=== PATIENT | male | born 1950 | race African-American/Black ===

== ENCOUNTER 2024-10-19 13:38 | Outpatient (CLI) | payer MEDICARE, MEDICAID, SELFPAY ==
--- NOTE | ~2024-10-19 | CT_ITS ---
CT Scan of the Chest without Contrast: Clinical Indication: Lung cancer screening, nicotine dependence Technique: Contiguous sections were acquired throughout the chest without intravenous contrast. Dose reduction technique was used on this scan by utilizing automated exposure control and iterative recon struction technique. The dose-length product (DLP) was 83.37 mGy-cm. Findings: There is no evidence of any significant mediastinal, hilar or axillary lymphadenopathy. Extensive cor onary artery calcification present. There is no evidence of pleural or pericardial effusion. Mild emphysema present. 7 mm and 5 mm right basilar pulmonary nodule present (axial images 116, 113). 4 mm right middle lobe nodule present (axial image 72). Calcified left upper lobe granuloma present. Probable left basilar scarring or nodularity, with prominent nodular component measuring 1 cm (axial image 112). Images through the upper abdomen reveal hepatic cysts. There are minimal compression deformities of T 11 and T12. Impression: Lung RADS 4A: Suspicious: 3 month follow-up CT advised. Reviewed, dictated and finalized at [facility]. Impression: Lung RADS 4A: Suspicious: 3 month follow-up CT advised.
== END 2024-10-19 13:39 | disposition home or self-care (01) ==
LOC: MICIMG 13:40
PROVIDERS: Visit Provider Family Medicine
DX: Z12.2 Encounter for screening for malignant neoplasm of respiratory organs (principal); Z87.891 Personal history of nicotine dependence; R91.8 Other nonspecific abnormal finding of lung field
CPT/HCPCS: 71271

== ENCOUNTER 2024-12-07 11:03 | Emergency (ER) | payer MEDICARE, MEDICAID, SELFPAY ==
--- OUTSIDE RECORDS SUMMARY | 2024-12-07 11:04 | XMS_ITS | Encounter Summary ---
Author Organization [facility] Healthcare Address [address] [place] [address] Care Team Providers Care Process Pumper Name Role Phone Neelam Onofre MD Primary Care Prov ider Jacky Devlin MD Unavailable [phone] Ziyad Pulido MD Unavailable Alex Guzman MD Unavailable [phone] David Wilson MD Unavailable [phone] Encounter Details Date Type Department Care Team (Late st Contact Info) Description 10/11/2023 Documentation [facility] OP Physical Therapy [address] [place] [id number] Jennifer Alcaraz, PT Social History Tobacco Use Types Packs/Day Years Used Date Smoking Tobacco: Every Day Cigarettes 1 50 Smokeless Tobacco: Never OASIS D0700: Social Isolation Answer Da te Recorded Frequency of experiencing loneliness or isolatio n Never 04/03/2023 OASIS A1250: Transportation Answer Date Recorded Lack of Transportation (Medical) No 04/03/2023 Lack of Transportation (Non-Medical) No 04/03/2023 Patient Unable or Declines to Respond No 04/03/2023 OASIS B1300: Health Literacy Answer Darryn e Recorded Frequency of needing help to read materials from doctor or pharmacy Never 04/03/2023 AUDIT-C Answer Date Recorded Q1: How often do you have a drink containing alcohol? 4 or more times a week 06/19/2021 Q2: How many drinks containi ng alcohol do you have on a typical day when you are drinking? 3 or 4 Q3: How often do you have si x or more drinks on one occasion? Daily or almost daily 06/19/2021 Personal Safety Answer Date Recorded Have you ever been in or are you currently in a harmful physical or emotional relationship or is someone making you feel afraid or unsafe? Denies 01/10/2023 Sex and Gender Information Value Date Recorded Sex Assigned at Not on file Legal Sex Male 4:49 AM [employer] Gender Identity Not on file Sexual Orientation Not on file documented as of this encounter Plan of Treatment Not on file documented as of this encounter Goals Goal Patient Goal Type Associated Problems Recent Progress Patient-Stated? Author CCM Chronic Pain Care Plan Chronic Care Management No Kristine Guadarrama RN Note: Problem: Chronic Pain Goals: 1. Minimize further functional decline 2. Maximize quality of life 3. Control pain Strategies: - Activity/exercise program recommendation - Conservative stepwise pain medicine strategy with multi-disciplinary approach - Recommend healthy lifestyle strategies and compensatory methods as needed documented as of this encounter Visit Diagnoses Not on filedocumented in this encounter Care Teams Process Pumper Relationship Specialty Start Date End Date Neelam Onofre MD PCP - General 06/02/17 Jacky Devlin MD Referring Physician Gastroenterology 09/15/19 Ziyad Pulido MD Consulting Physician Cardiovascular Disease 11/14/23 Alex Guzman MD [address] [facility] [address] [place] [address] Surgeon Orthopedic Surgery 11/14/23 David Wilson MD [address] [facility] [address] [place] [address] [place] [id number] Consulting Physician Neurology 12/12/23 documented as of this encounter
--- OUTSIDE RECORDS SUMMARY | 2024-12-07 11:05 | XMS_ITS | Data Portability ---
Author Organization [facility] AMITALiya Mercedes Address [address] [place] [address] Care Team Providers Care Spot Welder Body Assembly Name Role Phone SANDY HUSTON Primary Care Provider Assessment Encounter Date Assessment Date Assessment LastModified by Organization Details LastModified Time 08/10/2024 08/10/2024 Assessment: Extensive coronary calcification in 3 coronary arterial distributions with dyspnea concerning for an anginal variant Hypertension Mixed hyperlipidemia Nicotine dependence Peripheral arterial disease with occluded right ICA and high-grade left ICA stenosis status post TCAr by Dr. Mario Middleton in November 2023 Plan: Discussed with patient and daughter regarding concern for balanced ischemia on pharmacologic stress testing. Reviewed options of anatomic evaluation for CAD given ongoing symptoms of dyspnea concerning for CCS class 3 angina. Coronary CTA with have concern for high false positives given extensive coronary calcification noted on non coronary CT. After shared decision-making we will request cardiac catheterization and possible PCI. Rationale, benefits, risks, alternatives discussed at length. ER precautions by EMS in the interim reinforced. Peripheral arterial disease and recent TKR, continue dual antiplatelet therapy aspirin and clopidogrel. Deescalate carvedilol to 6.25 mg b.i.d. and reinitiate furosemide 20 mg daily along with potassium chloride 20 mEq daily given relative hypotension. Patient has discontinued amlodipine previously. Due to ongoing cough may need to evaluate lisinopril which we will do and the upcoming office follow-up visit. Given ongoing dyspnea nicotine dependence may also been from a pulmonary evaluation which he plans to discuss further visits PCP at the next office visit. Continue current dose of atorvastatin 40 mg daily and we will check a lipid panel prior to next cardiology office follow-up visit. We will request a close Cardiology office follow-up visit in 4 weeks' time after his coronary catheterization. CARDIAC DIAGNOSTICS: 12 lead EKG 08/10/2024: Sinus rhythm occasional PVCs, poor septal R-wave progression, inferior Q-waves noted, RVH with right axis Transthoracic echocardiogram 11/20/2023: LVEF 55-60%, normal RV function, grade 1 diastolic dysfunction Lexiscan nuclear stress test 11/22/2023: No fixed or reversible perfusion defects, no TID CT chest 08/19/2023: Cardiac portion shows severe coronary calcification, no pericardial effusion Labs: 03/30/2024: Sodium 139, potassium 4.4, chloride 106, CO2 26, BUN 12, creatinine 0.9 12/12/2023: HGB 16.8, WBC 10.7, platelet 239 [email or web address] Not available 08/10/2024 14:58:56 09/08/2024 09/08/2024 Coronary artery disease with stable angina : Occluded RCA with moderate disease in the LAD with recommendations for medical management. Due to concern for exertional dyspnea being an anginal equivalent, referred to cardiac rehab. continue high-intensity statin with atorvastatin 40 mg daily. Chronic diastolic heart failure: Low-sodium diet, ambulatory blood pressure monitoring. Continue current dose of furosemide and potassium. Initiate Jardiance 10 mg daily for medical therapy of diastolic heart failure. check follow-up labs in 2 weeks. Peripheral arterial disease : Status post TCAR by Dr. Mario Middleton. Continue dual antiplatelet therapy with aspirin and clopidogrel. Hypertension : Continue current dose of carvedilol and lisinopril. Low-sodium diet and ambulatory blood pressure monitoring reinforced. Nicotine dependence: Lengthy discussion regarding importance of complete nicotine cessation. Is down to 12 cigarettes per day and agreeable do cut back to cigarettes every few months. Declines need for pharmaceutical intervention. Plan follow-up in 2 months for ongoing management of heart failure with preserved ejection fraction. [email or web address] Not available 09/08/2024 16:41:14 11/09/2024 11/09/2024 Coronary artery disease: Occluded RCA with moderate disease in the LAD. Continue dual antiplatelet therapy with aspirin and clopidogrel after shared decision-making. Denies any bleeding diathesis. Continue cardiac rehabilitation for stable angina. Chronic diastolic heart failure: Continue current dose of Jardiance 10 mg daily. Continue furosemide 10 mg daily along with potassium replacement. Recent labs with stable renal function and potassium levels. Hypertension: Low-sodium diet, ambulatory blood pressure monitoring. Continue current dose of carvedilol and losartan. Mixed hyperlipidemia: Continue high-intensity statin with atorvastatin 40 mg daily. Check follow-up labs prior to next office visit. Peripheral arterial disease: Status post TCAR by Dr. Mario Middleton. Managed per their expertise. Nicotine dependence: Ongoing cessation reinforced is cutting down on its own. After discussion with patient's daughter, we will prescribe nicotine gum. Follow-up 4 months and p.r.n. On behalf of the Cardiovascular Services at [facility], we appreciate the opportunity to participate in the care of your patient. Please feel free to reach out to us for any questions regarding your patient's cardiac care. Ziyad Pulido MD, [facility] Cardiology [email or web address] Not available 11/09/2024 14:39:25 Plan of Treatment Reminders Order Date Submit Date Provider Last Modified By Organization Details Last Modified Time Details Appointments ANY 15 2024 03:00P M Sandy cantu MD Not available Not available Not available ANY 2024 01:30P M Ziyad Pulido MD Not available Not available Not available Lab TSH, serum or plasma 2024 025 [email or web address] [facility], [address], [place], [address], 11/09/2024 14:24:29 CBC 2024 025 [email or web address] [facility], [address], [place], [address], 11/09/2024 14:24:29 lipid panel, serum 2024 025 [email or web address] [facility] [address], [place], [address], 11/09/2024 14:24:28 CMP, serum or plasma 2024 025 [email or web address] [facility], [address], [place], [address], 11/09/2024 14:24:29 HbA1c (hemog lobin A1c), blood 2024 025 [email or web address] [facility], [address], [place], [address], 11/09/2024 14:24:29 lipid panel, serum 2024 025 [email or web address] [facility], [address] [place] [address], [address], [place], [address], 12/02/2024 10:45:05 CMP, serum or plasma 2024 025 [email or web address] [facility], [address] [place] [address], [address], [place], [address], 10/06/2024 10:54:43 HbA1c (hemog lobin A1c), blood 2024 025 [email or web address] [facility], [address] [place] [address], [address], [place], [address], 12/02/2024 10:45:05 Referral None record ed. Procedures None record ed. Surgeries cardia c bessy hollingsworth ion (SURG) 2024 025 [id number] Ramiro Miguel, [address] [facility], [place], [address], 08/12/2024 10:40:24 Imaging LDCT, chest, for lung cancer screen ing - curren t smoker 55+ pack years 1+ PPD x 55 years. 2024 025 [facility], [address] [place] [address] [address], [place], [address], 09/22/2024 10:07:51 electr ocardi ogram 2024 025 [email or web address] In-Office Order, Internal Use Only DO Not Attach Compendium DO Not Attach Compendium, Do Not Delete/merge, [id number] 08/10/2024 14:33:41 Medication Orders nicoti ne (polac rilex) 4 mg gum 2024 025 [email or web address] [id number], [address] [facility], [place], [address], 11/11/2024 09:15:01 Jardia nce 10 mg tablet 2024 025 [email or web address] [id number], [address] [facility] [facility], [place], [address], 11/09/2024 14:37:35 famoti dine 40 mg tablet 2024 025 [email or web address] [id number], [address] [facility] [facility], [place], [address], 10/12/2024 12:09:30 losart an 25 mg tablet 2024 025 HAROLDO [id number], [address] [facility], [place], [address], 09/17/2024 18:12:03 albute rol sulfat e HFA 90 mcg/ac tuatio n aeroso l inhale r 2024 025 HAROLDO [facility], [address] [facility], [place], [address], 09/17/2024 18:12:03 Jardia nce 10 mg tablet 2024 025 HAROLDO [facility] [address], [address] [facility], [place], [address], 09/08/2024 14:25:50 atorva statin 40 mg tablet 2024 025 HAROLDO [facility] [address], [address] [facility], [place], [address], 08/10/2024 14:38:07 Coreg 6.25 mg tablet 2024 025 HAROLDO [facility], [address], [place], [address], 08/10/2024 14:33:43 aspiri n 81 mg tablet ,delay ed releas e 2024 025 HARODLO [facility] [id number] [facility], [address] , [place], [address], 08/10/2024 14:38:07 Patient TargetsNo targets recorded. Patient Instructions Encounter Date Encounter Id Patient Instructions Last Modified By Organization Details Last Modified Time 08/10/2024 [id number] smoking cessatio n counseling [email or web address] Not available 08/10/2024 14:33:41 08/18/2024 [id number] Phone fu one month [email or web address] Not boubacar ilable 08/20/2024 22:03:27 09/08/2024 [id number] Quitting Tobacco : Care Instructions [email or web address] Not available 09/08/2024 14:26:45 cardiac rehabilitation* - Cardiac rehab for stable angina ATHENAFAX Not available 09/08/2024 16:40:36 09/17/2024 [id number] Quitting Tobacco : Care Instructions [email or web address] Not available 09/17/2024 18:11:48 complete PFT w/ post bronchodilator spirometry* ATHENAFAX Not available 09/18/2024 15:55:48 FU 6 weeks [email or web address] Not available 18:12:05 11/09/2024 [id number] A healthy lifestyle: care instructions [email or web address] Not available 11/09/2024 14:26:58 Quitting Tobacco : Care Instructions [email or web address] Not available 11/09/2024 14:26:58 Reason for Referral None Reported. Results Created Date Observation Date Name Description Value Unit Range Abnormal Flag Note LastModifiedBy Organization Detail LastModifiedTime 08/10/1908/10/2024 elect arjun diogr am No observ ation record ed. HAROLDO In-Office Order Internal Use Only DO Not Attach Compendium DO Not Attach Compendium, Do Not Delete/merge, [id number] 08/10/2024 15:18:27 08/10/19 nicolas vigil am No observ ation record ed. [email or web address] Not Available 2024 14:59:35 10/20/19 25 10/19/2024 LDCT, chest , for lung brendan siddiqui No observ ation record ed. HAROLDO [facility] [address], [place], [address], 10/19/2024 17:54:09 Result Notes None recorded. Problems Name Problem SNOMED Code Status Onset Date Resolution Date Notes Provider Name and Address Organization Details Recorded Time Polyp of colon 43830212 Active 2018 21 removed 01/2019 colonosco py - repeat 4-6 months; 02/[address] Lemus. Polyps 06/2022 - recommend repeat one year. Sandy cantu MD Attn: Maria Del Carmen sanchez,[address] [place], [address], [place] - [facility] 2 13:56:28 Prostati sm 34084994 Active 2020 Sandy cantu MD Attn: Maria Del Carmen sanchez,[address] [facility], [place], [address], [place] [facility] 1 15:39:09 Cerebrov ascular accident 241448244 Active 2020 Sandy cantu MD Attn: Maria Del Carmen sanchez,[address] [place], [address], [place] [facility] 1 18:02:10 Chronic obstruct adam pulmonar y disease 06458663 Active 2021 Presumed 2/2 intermediate heavy tobacco use, good sx response to spiriva Sandy cantu MD Attn: Maria Del Carmen sanchez,[address] [place], [address], [place] [facility] 2 13:59:14 Dementia 90212559 Active 2021 Stable, seeing neuro Sandy Ernestina cantu MD Attn: Maria Del Carmen sanchez,[address] [facility], [place], [address], [place] - [facility] 2 14:01:51 Peripher al arterial disease 486327105 Active 2024 Ziyad Pulido MD Attn: Maria Del Carmen sanchez,[address] [facility], [place], [place], [address] [place] [address] 2, [place] [facility] 5 14:25:38 Mixed hyperlip idemia 571783166 Active 2024 Ziyad Pulido MD Attn: Maria Del Carmen sanchez,[address] [facility], [place], [place], [address] [place] [address] 2, [place] - [facility] 5 14:40:11 Chronic diastoli c heart failure 115537192 Active 2024 Ziyad Pulido MD Attn: Maria Del Carmen sanchez,[address] [facility], [place], [place], [address] [place] [address] 2, [place] - [facility] 5 14:40:14 Coronary arterios clerosis 85290365 Active 2024 Ziyad Pulido MD Attn: Maria Del Carmen sanchez,[address] [facility], [place], [place], [address] [place] [address] 2, [place] - [facility] 5 14:40:55 [facility] hyperten merlin 47203055 Active Ziyad Pulido MD Attn: Maria Del Carmen sanchez,[address] [facility], [place], [place], [address] [place] [address] 2, [place] [facility] 5 14:40:12 Tobacco user 340173494 Active Sean Smith MD [address], [place], [address], [place] [facility] 6 16:10:29 Cervical myelopat hy 221763600 Active Sean Smith MD [address], [place], [address], [place] [facility] 6 16:10:29 Hypertri glycerid emia 511850783 Active Sean Smith MD [address] [place], [address], [facility] - [facility] 6 16:10:29 Hyperten sive disorder 43148588 Completed 03/12/2019 Sandy cantu MD Attn: Maria Del Carmen sanchez,[address] [facility], [place], [address], [facility] - [facility] 9 18:18:46 Notes:Colonoscopy 01/2019 Problem Notes None recorded. Procedures Surgical History Date Name Laterality Status Provider Name and Address Organization Details Recorded Time Cervical Spine Surgery completed Sandy Huston MD Attn: [address] [facility], [place], [address], [facility] - [facility] 06/10/2015 14:28:13 Carpal Tunnel Surgery completed Sandy Huston MD Attn: [address] [facility], [place], [address], [facility] - [facility] 06/10/2015 14:28:13 Imaging Results None recorded. Procedure Notes None recorded. Medical Equipment None Reported. Allergies No known drug allergies Medications Name Sig Start Date Stop Date Status Note LastModified by Organization Details LastModified Time losartan 50 mg tablet TAKE 1 TABLET BY MOUTH EVERY DAY 07/10 completed Not Available Not Available Not Available cyclobenz aprine 10 mg tablet TAKE 1 TABLET BY MOUTH TWICE A DAY NEEDED FOR MUSCLE SPASM 07/11 completed Not Available Not Available Not Available amoxicill in 500 mg capsule active Not Available Not Available Not Available atorvasta tin 40 mg tablet TAKE 1 TABLET BY MOUTH EVERY DAY active Not Available Not Available No t Available atorvasta tin 80 mg tablet TAKE 1 TABLET BY MOUTH EVERY DAY 08/10 completed Not Available Not Available Not Available carvedilo l 6.25 mg tablet TAKE 1 TABLET BY MOUTH TWICE A DAY active Not Available Not Available No t Available gabapenti n 600 mg tablet 05/23 completed Not Available Not Available Not Available doxycycli ne hyclate 100 mg capsule TAKE 1 CAPSULE BY MOUTH TWICE A DAY 07/11 completed Not Available Not Available Not Available atorvasta tin 20 mg tablet TAKE 1 TABLET BY MOUTH EVERY DAY 08/10 completed Not Available Not Available Not Available carvedilo l 12.5 mg tablet TAKE 1 TABLET BY MOUTH TWICE A DAY WITH FOOD 11/09 completed Not Available Not Available Not Available donepezil 5 mg tablet 07/11 completed Not Available Not Available Not Available hydrocodo ne 5 mg-acetam inophen 325 mg tablet TAKE 1 TABLET BY MOUTH EVERY 6 HOURS NEEDED 09/05 completed Not Available Not Available Not Available donepezil 10 mg tablet TAKE 1 TABLET BY MOUTH EVERY DAY AT NIGHT active Not Available Not Available No t Available lisinopri l 20 mg tablet TAKE 1 TABLET BY MOUTH EVERY DAY 08/10 completed Not Available Not Available Not Available famotidin e 40 mg tablet TAKE 1 TABLET BY MOUTH EVERY DAY active Not Available Not Available No t Available valsartan 80 mg tablet TAKE 1 TABLET BY MOUTH EVERY DAY AROUND THE CLOCK 11/18 completed Not Available Not Available Not Available amlodipin e 2.5 mg tablet TAKE 1 TABLET BY MOUTH EVERY DAY 09/08 completed Not Available Not Available Not Available clopidogr el 75 mg tablet TAKE 1 TABLET BY MOUTH EVERY DAY active Not Available Not Available No t Available amlodipin e 5 mg tablet TAKE 1 TABLET BY MOUTH EVERY DAY 09/08 completed Not Available Not Available Not Available allopurin ol 100 mg tablet take 1 tablet by mouth every day 03/12 completed Not Available Not Available Not Available aspirin 81 mg tablet,de layed release TAKE 1 TABLET BY EVERY DAY IN THE MORNING. active Not Available Not Available No t Available nortripty line 25 mg capsule TAKE 1 CAPSULE BY MOUTH EVERY DAY AT BEDTIME NEEDED active Not Available Not Available No t Available potassium chloride ER 20 mEq tablet,ex tended release(p art/cryst ) TAKE 1 TABLET BY MOUTH EVERY DAY active Not Available Not Available No t Available famotidin e 20 mg tablet 03/12 completed Not Available Not Available Not Available Nitrostat 0.4 mg sublingua l tablet One tab q 5 min slingual for chest pain 03/12 completed Not Available Not Available Not Available tamsulosi n 0.4 mg capsule TAKE 1 CAPSULE BY MOUTH EVERY DAY active Not Available Not Available No t Available nicotine (polacril ex) 4 mg gum Chew 1 piece of gum every 2 hours by oral route 2024 active Not Available Not Available Not Avai lable baclofen 10 mg tablet TAKE 0.5 TABLETS (5 MG TOTAL) BY MOUTH 2 (TWO) TIMES A DAY NEEDED FOR MUSCLE SPASMS active Not Available Not Available No t Available amlodipin e 10 mg tablet TAKE 1 TABLET BY MOUTH EVERY DAY 09/08 completed Not Available Not Available Not Available nortripty line 10 mg capsule 01/31 completed Not Available Not Available Not Available triamcino lone acetonide 0.1 % topical ointment APPLY TO AFFECTED AREA ON TRUNK TWICE A DAY NEEDED active Not Available Not Available No t Available lisinopri l 10 mg tablet TAKE 1 TABLET BY MOUTH EVERY DAY active Not Available Not Available No t Available valsartan 320 mg tablet 1 tab daily 12/27 completed Not Available Not Available Not Available losartan 25 mg tablet TAKE 1 TABLET BY MOUTH EVERY DAY active Not Available Not Available No t Available nicotine 21 mg/24 hr daily transderm al patch APPLY 1 PATCH TRANSDER SANJIV ONCE DAILY (OTC) 06/19 completed Not Available Not Available Not Available gabapenti n 300 mg capsule active Not Available Not Available Not Available SB Low Dose ASA EC 81 mg tablet,de layed release Take 1 tablet every day by oral route. 06/19 completed Not Available Not Available Not Available hydrochlo rothiazid e 25 mg tablet TAKE 1 TABLET BY MOUTH EVERY DAY 01/13 completed Not Available Not Available Not Available furosemid e 20 mg tablet TAKE 1 TABLET BY MOUTH EVERY DAY active Not Available Not Available No t Available methylpre dnisolone 4 mg tablets in a dose pack 01/31 completed Not Available Not Available Not Available albuterol sulfate HFA 90 mcg/actua tion aerosol inhaler TAKE 2 PUFFS BY MOUTH EVERY 4 HOURS active Not Available Not Available No t Available lisinopri l 40 mg tablet Take 1 tablet every day by oral route. 05/19 completed Not Available Not Available Not Available fluticaso ne propionat e 50 mcg/actua tion nasal spray,brandon pension SPRAY 1 SPRAY BY INTRANAS AL ROUTE EVERY DAY FOR 30 DAYS active Not Available Not Available No t Available cholecalc iferol (vitamin D3) 125 mcg (5,000 unit) capsule TAKE 1 TABLET BY MOUTH EVERY DAY IN THE MORNING. Plan change dose to 1000 units per day after month and recheck. 07/11 completed Not Available Not Available Not Available nortripty line 50 mg capsule 09/[address] ed by Dr. Perry Not Available Not Available Not Available Tylenol Extra Strength 500 mg tablet Take 2 tablets every day by oral route in the evening. 09/08 completed Not Available Not Available Not Available valsartan 160 mg tablet TAKE 1 TABLET BY MOUTH EVERY DAY 09/08 completed Not Available Not Available Not Available rosuvasta tin 40 mg tablet TAKE 1 TABLET BY MOUTH EVERYDAY AT BEDTIME active Not Available Not Available No t Available memantine 10 mg tablet TAKE 1 TABLET BY MOUTH TWICE A DAY active Not Available Not Available No t Available memantine 5 mg tablet TAKE 1 TAB AT NIGHT FOR 1 WEEK, THEN 1 TAB TWICE DAILY X1 WEEK, THEN 1 TAB IN MORNING AND 2 AT NIGHT 07/11 completed Not Available Not Available Not Available pregabali n 150 mg capsule TAKE 1 CAPSULE BY MOUTH THREE TIMES A DAY active Not Available Not Available No t Available Lyrica 75 mg capsule 01/31 completed Not Available Not Available Not Available Vitamin D3 active Not Available Not Available Not Available levetirac etam 1,000 mg tablet TAKE 1 TABLET BY MOUTH EVERY 12 HOURS active Not Available Not Available No t Available fluticaso ne propionat e 115 mcg-salme terol 21 mcg/actua tion HFA inhaler INHALE 2 PUFFS TWICE A DAY active Not Available Not Available No t Available Advair HFA 45 mcg-21 mcg/actua tion aerosol inhaler INHALE 2 PUFFS BY MOUTH TWICE A DAY active Not Available Not Available No t Available budesonid e-formote rol HFA 160 mcg-4.5 mcg/actua tion aerosol inhaler INHALE 1 PUFF BY MOUTH TWICE A DAY 09/08 completed Not Available Not Available Not Available oxycodone 10 mg tablet 03/12 completed Not Available Not Available Not Available diclofena c 1 % topical gel APPLY 2 GRAMS BETWEEN HANDS AND RUB IN UP TO 4 TIMES DAILY active Not Available Not Available No t Available Dulera 100 mcg-5 mcg/actua tion HFA aerosol inhaler INHALE 2 PUFFS TWICE A DAY active Not Available Not Available No t Available Suprep Bowel Prep Kit 17.5 gram-3.13 gram-1.6 gram oral solution Take 300 mL by oral route for 1 day. 11/18 completed Not Available Not Available Not Available Combivent Respimat 20 mcg-100 mcg/actua tion solution for inhalatio n Inhale 1 puff 4 times a day by inhalati on route. 06/18 completed Not Available Not Available Not Available Breo Ellipta 100 mcg-25 mcg/dose powder for inhalatio n active Not Available Not Available Not Available Jardiance 10 mg tablet TAKE 1 TABLET BY MOUTH EVERY DAY active Not Available Not Available No t Available Spiriva Respimat 2.5 mcg/actua tion solution for inhalatio n INHALE 2 PUFFS INTO THE LUNGS EVERY DAY active Not Available Not Available No t Available Vitals Date Recorded Body height Body mass index (BMI) Body weight Respiratory rate Heart rate Oxygen saturation Oxygen saturation in Arterial blood by Pulse oximetry Systolic And Diastolic Provider Name and Address Organization Details Last Updated DateTime 5 175.26 cm 25.4 kg/m2 25043.8 9 g 18 /min 85 /min 96 % 96 % 114/68 mm[Hg] Екатерина Ortega LPN [facility] 5 14:16:12 Date Recorded Body height Body mass index (BMI) Body weight Heart rate Heart rate Body temperature Systolic And Diastolic Systolic And Diastolic Provider Name and Address Organization Details Last Updated DateTime 5 175.26 cm 25.3 kg/m2 61648.7 g 88 /min 90 /min 97.3 [degF] 165/91 mm[Hg] 130/53 mm[Hg] Funmi Evans MA [facility] 5 16:34:50 Date Recorded Body height Body mass index (BMI) Body weight Heart rate Oxygen saturation Oxygen saturation in Arterial blood by Pulse oximetry Systolic And Diastolic Provider Name and Address Organization Details Last Updated DateTime 5 175.26 cm 25.7 kg/m2 18180.0 7 g 89 /min 93 % 93 % 110/50 mm[Hg] Grace Estes RN [facility] 5 14:10:27 Date Recorded Body height Body mass index (BMI) Body weight Respiratory rate Heart rate Oxygen saturation Oxygen saturation in Arterial blood by Pulse oximetry Systolic And Diastolic Provider Name and Address Organization Details Last Updated DateTime 5 175.26 cm 25.5 kg/m2 39717.4 8 g 18 /min 87 /min 96 % 96 % 110/54 mm[Hg] Екатерина Ortega LPN [facility] 5 14:12:35 Social History Question Answer Notes LastModified by Organizat ion Details LastModified Time Tobacco Smoking Status Current Every Day Smoker Sandy Huston MD Attn: [place], [address], [facility] - [facility] 10/07/2015 14:32:47 Are You Blind Or Do You Have Difficulty Seeing? No Information not available 11/03/2020 What Is Your Level Of Caffeine Consumption? Occasional Information not available 11/03/2020 In The 14 Days Before Symptom Onset, Have You Had Close Contact With A Laboratory-confir med COVID-19 While That Case Was Ill? No Information not available 11/03/2020 In The 14 Days Before Symptom Onset, Have You Had Close Contact With A Person Who Is Under Investigation For COVID-19 While That Person Was Ill? No Information not available 11/03/2020 Have You Been To An Area Known To Be High Risk For COVID-19? No Information not available 11/03/2020 Are You Deaf Or Do You Have Serious Difficulty Hearing? No Information not available 11/03/2020 What Type Of Diet Are You Following? REGULAR Information not available 11/03/2020 Are There Any Guns Present In Your Home? No Information not available 11/03/2020 Have You Ever [place] That You Ought To Cut Down On Your Drinking Or Drug Use? Yes Information not available 03/12/2018 Have People Annoyed You By Critizing Your Drinking Or Drug Use No Information not available 03/12/2018 Have You Ever [place] Bad Or Guility About Your Drinking Or Drug Use Yes Information not available 03/12/2018 Have You Ever Had A Drink Or Used Drugs First Thing In The Morning To Steady Your Nerves Or To Get Rid Of A Hangover No Information no t available 03/12/2018 What Was The Date Of Your Most Recent Tobacco Screening? 09/08/2024 Information not available 09/08/2024 Do You Use Protection During Sex? Always Information not available 11/03/2020 What Is Your Relationship Status? Other Information not available 11/03/2020 Do You Use Your Seat Belt Or Car Seat Routinely? Yes Information not available 11/03/2020 Are You Sexually Active? Yes Information not available 11/03/2020 Do You Have Smoke And Carbon Monoxide Detectors In Your Home? Yes Information not available 11/03/2020 At What Age Did You Start Smoking Tobacco? 16 Information not available 11/03/2020 Are You Passively Exposed To Smoke? No Information no t available 11/03/2020 How Much Tobacco Do You Smoke? 1 PPD [email or web address] Information not available 10/07/2015 Do You Use Sunscreen Routinely? No Information not available 11/03/2020 On What Date Was Tobacco Cessation Counseling Provided? 09/08/2024 Information not available 09/08/2024 How Many Years Have You Smoked Tobacco? 10 Information not available 11/03/2020 Sex: Male Functional Status Question Answer Note LastModified by Organizat ion Details LastModified Time Do you use any illicit or recreational drugs? No Information not available 11/03/2020 Do you or have you ever used any other forms of tobacco or nicotine? No [email or web address] Information not available 08/10/2024 What is your level of alcohol consumption? None Information not available 11/03/2020 Are you currently employed? No Information not available 11/03/2020 Are you able to care for yourself? Yes Information n ot available 11/03/2020 What is your exercise level? Occasional Information not available 11/03/2020 Mental Status Question Answer Note LastModified by Organization D etails LastModified Time Do you feel stressed (tense, restless, nervous, or anxious, or unable to sleep at night)? [id number] Information not available 11/03/2020 Family History Nothing Reported. Medical History Condition Response Coronary Artery Disease N Other N Atrial Fibrillation N High Blood Pressure Y Kidney or Bladder Problems N Thyroid Problems N GI Problems N Depression N COPD N Blood Clots N Eating Disorder N Skin Problems N Anemia N Heart Attack (ID) N Anxiety Disorder N Diabetes N Muscle, Joint, or Bone Problems N Seizures/Epilepsy N Acid Reflux (GERD) N Cancer N Stroke N Asthma N Allergies N ADHD N Substance Abuse N High Cholesterol N Hepatitis N Liver Disease N Schizophrenia N Headaches N Osteoporosis N Heart Failure N Immunizations Vaccine Type Date Status Note Provider Nam e and Address Organization Details Recorded Time COVID-19, mRNA, LNP-S, PF, 100 mcg/0.5mL dose or 50 mcg/0.25mL dose 1 completed Tg Valero [place] null, [place] [facility] 06/19/2021 11:31:36 Influenza, split virus, quadrivalent, preservative 8 completed Not Available [facility] 08/01/2019 02:36:58 Pneumococcal conjugate PCV 13 8 completed Not Available [facility] 08/01/2019 02:36:58 Influenza, split virus, quadrivalent, preservative 0 completed Alejandro Doty [place], [place] [facility] 08/20/2019 15:14:32 pneumococcal polysaccharide PPV23 0 completed Alejandro Doty [place], [place] [facility] 08/20/2019 15:16:54 Influenza, high-dose, quadrivalent, PF 1 completed Tg Val[place], [place] [facility] 06/15/2021 15:47:55 Influenza, split virus, quadrivalent, PF 3 completed Sandy Huston MD Attn: [address] [place], [address], [place] [facility] 09/05/2022 22:11:26 COVID-19, mRNA, LNP-S, PF, 30 mcg/0.3 mL dose 3 completed Sandy Huston MD Attn: [address] [place], [address], [place] [facility] 09/05/2022 22:11:26 Influenza, high-dose, trivalent, PF 4 completed Funmi Evans MA [facility], [place] - [facility] 04/16/2024 12:17:35 Past Encounters Encounter ID Performer Location Encounter Start Date Encounter Closed Date Diagnosis/Indication Diagnosis SNOMED-CT Code Diagnosis ICD10 Code Diagnosis Note [id number] Sandy manuel MD [facility] (Adult Med) [address] [place] [address] 10/07/2015 13:39:33 10/07/2015 15:37:00 Hypertensive disorder 91150917 I10 Chest pain 45018222 R07. 9 [id number] Sandy manuel MD [facility] (Adult Med) [address] [place] [address] 11/18/2015 14:53:22 11/18/2015 15:27:39 Hypertensive disorder 30732661 I10 Intermitte nt chest pain, referred to cards - missed apt? Needs resched Hypertriglyceridemia 302 897272 E78.1 Dietary changes and recheck [id number] [facility] [address] [place] [address] 12/07/2015 13:36:38 12/08/2015 11:28:14 Cervical myelopathy 678193598 G95.89 Chest pain 48749629 R07. 9 Essential hypertension 86900997 I10 Hypertriglyceridemia 302 822643 E78.1 Tobacco user 387261765 Z 72.0 Family his tory of coronary arteriosclerosis 669974604 Z82.49 [id number] [facility] [address] [place] [address] 01/11/2016 13:29:35 01/20/2016 03:48:07 Cervical myelopathy 521699972 G95.89 Chest pain 22337357 R07. 9 Essential hypertension 00977088 I10 Family his tory of coronary arteriosclerosis 653976413 Z82.49 Hypertensive disorder 38 651014 I10 Hypertriglyceridemia 302 792191 E78.1 Tobacco user 046212689 Z 72.0 [id number] Sandy manuel MD [facility] (Adult Med) [address] [place] [address] 05/23/2016 14:43:22 05/23/2016 15:36:28 Gout 21863084 M10.9 Essential hypertension 65164046 I10 Screening for cancer 158 84448 Z12.9 [id number] Sandy manuel MD [facility] (Adult Med) [address] [place] [address] 01/31/2018 12:20:40 01/31/2018 15:03:28 Hypertensive disorder 80077796 I10 Not clear who prescribin g meds prior to admit. Bring all pill bottles to next visit. Tobacco user 208191681 Z 72.0 Not ready to quit. Cervical myelopathy 2025 75282 G95.9 Follows with pain management - chronic narcotics Appendicitis 70643973 K3 7 recovering ; advised contact Dr. Chavez for FU instructio ns. Ok to leave scar uncovered and ok to shower/bat h (still taking sponge baths). [id number] Sandy manuel MD [facility] (Adult Med) [address] [place] [address] 03/12/2018 12:15:21 03/12/2018 14:11:12 Essential hypertension 88520807 I10 Normotensi ve today. Hold BP Meds. Med list reconciled today. 19% ASCVD risk if LD and TC low and normotensi ve. Start statin. Add asa next visit. Alcohol dependence 82361 003 F10.20 Doesn't view as problem at this time. CAGE 2. Continue to address. [id number] Sandy manuel MD [facility] (Adult Med) [address] [place] [address] 06/26/2018 15:10:15 06/26/2018 16:32:45 Active or passive immunization 475689275 Z23 Problem drinker 41975810 2 Z71.41 Advised no more than 2 x 1.5 oz shots nightly Essential hypertension 18092215 I10 Normotensi ve previously . Resume amlodipine 10 mg daily. Screening for disorder 722205863 Z13.9 Tobacco user 446344669 Z 72.0 Precontemp lative with regard to quitting. [id number] Sandy manuel MD [facility] (Adult Med) [address] [place] [address] 09/24/2018 13:11:36 09/24/2018 14:22:24 Peripheral neuropathic pain 537472316 M79.2 Suspect TCA prescribed by pain management doctor in past? Advised cut back to one cap at HS and if no detriment to sleep and no increase pain, discontinu e medication altogether and monitor for any change in sx. Side effects of TCAs reviewed if can't identify specific benefit - should stop. Hernia of anterior abdominal wall 353514075 K43.9 Essential hypertension 60178138 I10 Continue amlodipine [id number] [facility] [address] [place] [address] 11/07/2018 15:31:01 11/20/2018 17:19:11 Multiple nodules of lung 848388613 R91.8 Hypertensive disorder 38 965215 I10 continue same meds Tobacco user 078913137 Z 72.0 smoking cessation PFT [id number] Sandy manuel MD [facility] (Adult Med) [address] [place] [address] 12/17/2018 14:29:53 12/17/2018 15:03:33 Hernia of anterior abdominal wall 717974972 K43.9 has deferred surg Cecal mass 8589880869 257562 K63.89 has Nano appt with GI. Multiple n odules of lung 601135031 R91.8 Seeing pulm Hypertensive disorder 38 520947 I10 Prev BP at goal. Recheck next visit. [id number] Sandy manuel MD [facility] (Adult Med) [address] [place] [address] 03/12/2019 14:11:30 03/12/2019 15:55:17 Essential hypertension 60647979 I10 Add losartan and labs in 2-3 weeks. (hx of gout - avoid HCTZ) Hernia of anterior abdominal wall 186915589 K43.9 advised fu with surg and address questions to her. Tobacco user 413843040 Z 72.0 Precontemp lative with regard to quitting. Hypertriglyceridemia 302 857904 E78.1 Dietary changes, statin and recheck [id number] Sandy manuel MD [facility] (Adult Med) [address] [place] [address] 08/20/2019 13:55:25 08/20/2019 16:00:56 Active or passive immunization 881173025 Z23 Essential hypertension 52677727 I10 Increase valsartan to 160 mg (80 mg x 2 tabs). Refill at higher dose. Return to office within 2 weeks for recheck of BP and repeat BMP (may have preop labs pending). Hyperlipidemia 63929934 E78.5 cont statin [id number] Sandy manuel MD [facility] (Adult Med) [address] [place] [address] 11/19/2019 11:49:28 11/19/2019 15:35:13 Essential hypertension 91723009 I10 Increase valsartan to 160 mg last visit. Did not return for BP check. Advised check at [facility] where he has access to a cuff. Polyp of colon 89922228 K63.5 multiple, gen surg and GI may rec colectomy Hernia of anterior abdominal wall 003686358 K43.9 abdominal hernia - his gen surg also involved with his GI [id number] Sandy manuel MD [facility] (Adult Med) [address] [place] [address] 03/24/2020 10:53:39 03/24/2020 15:40:11 Pre-surgery evaluation 218468882 Z01.818 Low risk for major CV complicati ons during mod risk procedure. EKG not unreasonab le given limited physical activity due to ortho issues. Faxed to [facility] Essential hypertension 63721892 I10 BP normal per his recall at surg office. Understand s need optimized before surgery. Hypertriglyceridemia 302 652707 E78.1 Dietary changes, statin and recheck, on statin Tobacco user 586117928 Z 72.0 Precontemp lative with regard to quitting. Screening for disorder 868385915 Z13.9 [id number] Sandy manuel MD [facility] (Adult Med) [address] [place] [address] 05/25/2020 11:04:18 05/27/2020 14:59:08 Hernia of anterior abdominal wall 375295969 K43.9 abdominal hernia repair month ago complicate d by post op aspiration . Recovered and home from rehab. Aspiration pneumonia 422 859059 J69.0 post op Apr 2020, resolve. No abx and no pulm fu planned Essential hypertension 56031123 I10 At goal in hosp and rehab. Home health will fu [id number] Sandy manuel MD [facility] (Adult Med) [address] [place] [address] 09/08/2020 10:59:55 09/08/2020 20:36:36 Cerebrovascular accident 851066745 I63.9 Acute - few deficits, home with home health and pt. Plavix, asa and statin. Trying to quit smoking with patches Tobacco user 884677169 Z 72.0 Trying to quit with patches. Essential hypertension 56574034 I10 Chronic At goal per home health measures (according to cecy) Cervical myelopathy 2025 33966 G95.9 Chronic Follows with pain management - chronic narcotics, cyclobenzp rine, Lyrica. Stop ibu advised. Prostatism 45607767 N40. 0 Chronic- refill flomax requested [id number] Sandy manuel MD [facility] (Adult Med) [address] [place] [address] 11/03/2020 15:37:01 11/04/2020 13:45:00 Cervical myelopathy 892597607 G95.9 Chronic Follows with pain management - chronic narcotics (weaned down), Lyrica. Some tylenol. Complains of pain but daughter not sure his demeanor or body language consistent with verbalized pain and he wont take night pain meds. Pain management considerin g injections for him shortly Essential hypertension 85855172 I10 Chronic , above goal today. Put HCTZ in AM meds which he takes regularly Cerebrovas cular accident 216740874 I63.9 07/2020 - few deficits, home in own place. Plavix, asa and statin. Continues to smoke. Neuro referral placed. Tobacco user 619051731 Z 72.0 Trying to quit with patches previously . Not plannning to at this time. 1 PPD Alcohol dependence 60385 003 F10.20 Daughter limits but knows he has neighbors get for him. She is weaning him off [place] and limiting Tylenol. [id number] Sandy manuel MD [facility] (Adult Med) [address] [place] [address] 06/15/2021 14:34:12 06/29/2021 12:12:28 Cerebrovascular accident 634844125 I63.9 Few residual deficits, home in own place. Plavix, asa and statin. Continues to smoke. Neuro planning CTA carotids (B stenosis) and fu Jul/Aug. Essential hypertension 86496468 I10 Chronic , above goal today. Make sure HCTZ in AM meds which he takes regularly. If still elevated next visit, increase amlodipine . Active or passive immunization 358165795 Z23 Chronic ob structive pulmonary disease 26451414 J44.9 Complain am cough and excess sputum production at times. Tobacco user 318362942 Z 72.0 1 PPD, sometimes more, no plans to quit. [id number] Sandy manuel MD [facility] (Adult Med) [address] [place] [address] 08/17/2021 09:38:51 08/18/2021 10:12:00 Pain in right foot 8311156178 26498 M79.671 acute, improving. Daughter concerned he may have injured it and doesn't recall. Cerebrovas cular accident 992266650 I63.9 Few residual deficits, home in own place. Plavix, asa and statin. Continues to smoke. Continue with neuro Tobacco user 400658799 Z 72.0 1 PPD, sometimes more, no plans to quit. Essential hypertension 35922979 I10 Chronic , at goal last neuro visit. Order BP cuff [id number] Sandy manuel MD [facility] (Adult Med) [address] [place] [address] 01/10/2022 11:02:04 01/11/2022 11:50:52 Acute nontraumatic kidney injury 6309433396 06922 N17.9 Noted in hospital - recheck Anemia 805919039 D64.9 acute - reportedly 2/2 epistaxis, improved durne hosp stay. Bleeding from nose 11451 1022 R04.0 exam in office limited. Refer to ent and do best we can to limit further bleeding. Would like to restart Plavix History of cerebrovascular accident 346695677 Z86.73 Neuro has recommende d DAPT. Hospital held Plavix until after fu. Hold until ENT eval. Obesity 841250429 E66.9 [id number] Sandy manuel MD [facility] (Adult Med) [address] [place] [address] 03/28/2022 11:08:50 03/29/2022 11:17:14 Essential hypertension 86990705 I10 Chronic , at goal. Chronic ob structive pulmonary disease 72133469 J44.9 Chronic, stable sx. Plan PFTs at future visit. Tobacco user 907448937 Z 72.0 1 PPD, sometimes more, no plans to quit. [id number] Sandy manuel MD [facility] (Adult Med) [address] [place] [address] 09/05/2022 16:20:39 09/08/2022 16:18:55 Neuropathy 765112837 G62.9 Chronic B UE pain, seeing pain management . Restart nortiptyli ne. Risks, benefits side effects of medication reviewed in detail with pt and daughter. Dementia 78788960 F03.90 stable. Seeing neuro q 6 months Abdominal pain 48870742 R10.9 chronic, intermitte nt and assoc with ?increase bulge at site of prev hernia repair. Smoker 61065218 F17.200 Not interested in quitting. Agrees to LDCT Active or passive immunization 744155948 Z23 Essential hypertension 08355188 I10 Chronic , above goal today. At goal prev. Compliant with meds. Smoking on way in to office today. Has home cuff and able to check own BP and record on paper. FU 2-3 weeks by phone to review home BP. Check on waking, before tobacco, etoh. Overweight 156474653 E66 .3 [id number] Sandy manuel MD [facility] (Adult Med) [address] [place] [address] 02/07/2023 16:28:29 02/08/2023 11:34:27 Neck pain 96976769 M54.2 Abscess of breast 940432 03 N61.1 Resolved. [id number] Sandy manuel MD [facility] (Adult Med) [address] [place] [address] 07/11/2023 16:22:42 07/12/2023 08:06:05 Bilateral arthritis of hands 7173498367 35089 M13.841 M13.842 Trial diclofenac Coronary arteriosclerosis 31876598 I25.10 Severe 3 vessel calcificat ion on CT chest. EDUARDO but COPD, very sedentary. On statin, aspirin; BP controlled . Essential hypertension 34087684 I10 At goal on recheck. Encouraged check at least 3 times weekly and record. He and daughter are aware of goal BP [id number] Sandy manuel MD [facility] (Adult Med) [address] [place] [address] 10/31/2023 16:38:31 11/05/2023 14:57:34 Essential hypertension 37890956 I10 BP above goal at home, in this office and at vasc visit. Increase amlodipine from 2.5 to 5 and fu one week with phone BP checks on waking before cigarettes Cerebrovas cular accident 437935904 I63.9 Few residual deficits, home in own place. Plavix, asa and statin (optimize dose) . Continues to smoke. Continue with neuro and vasc surg. Critical stenosis L ICA and surgical planning started. Vertigo 915151140 R42 recurrent relatively brief episodes for some weeks, Mr. Smith did not relate to neuro or vasc surgery. MRI brain and ER if worse Smoker 83361983 F17.200 Not interested in quitting. Headache 58437432 R51.9 chronic, intermitte nt for years. Tylenol safe Atheroscle rosis of coronary artery without angina pectoris 7029315680 [address] chest and referred to cardiology but no visit scheduled yet. Will fu with that office to confirm referral recd Multiple n odules of lung 083337043 R91.8 Due in November for FU. Ordered previously . [id number] Sandy manuel MD [facility] (Adult Med) [address] [place] [address] 11/07/2023 12:09:21 11/08/2023 09:51:35 Essential hypertension 06296621 I10 At goal on increase dose amlodipine Vertigo 872633855 R42 recurrent relatively brief episodes for some weeks, MRI scheduled in 3 weeks. Sx reported to [facility] surgery yet but not clear any different rec than MRI and cards eval. [id number] Sandy manuel MD [facility] (Peds) [address] [place] [address] 01/14/2024 15:58:31 01/24/2024 14:15:29 Tobacco user 082678043 Z72.0 Living with daughter since sz and she is doling out 10 cigarettes per day in effort to decrease use. Essential hypertension 95229433 I10 At goal - HCTZ stopped in hospital. Chronic ob structive pulmonary disease 61938427 J44.9 Chronic, stable sx. Has three different steroid/LA BA - daughter will finish each sequential ly and fill ONE after that. Take Spiriva daily as well Alcohol dependence 62887 003 F10.20 Drinking 4 shots of hard alcohol each afternoon. No known w/d and his seizure not thought related to etoh but recommend slow cut back. ie add ice, small water to drinks to slowly wean. He will refuse quit but if can lower use to two shots per day, better than 4. Also recommend hold mid day pregabalin (around time he drinks 4 shots) Seizure disorder 7973237 02 G40.909 Thought to be assoc with procedure and reperfusio n type injury? Has neuro fu in February and no sz since hospital stay. [id number] Sandy manuel MD [facility] (Adult Med) [address] [place] [address] 04/09/2024 16:19:19 04/15/2024 09:08:56 Essential hypertension 28731132 I10 Stop amlodipine 5 mg (already holding Lasix from cardiology ). BP measures lower coincident with marked decrease in smoking and alcohol. Phone fu with daughter next week to review BP off of amlodipine . Administra tion of influenza vaccine 75589483 Z23 Pain of bi lateral hands 6012991401 2562472 M79.641 M79.642 Suspect OA but if stiffness worsens, consider additional eval. Kevin parker d. Coronary arteriosclerosis 89021181 I25.10 Severe 3 vessel calcificat ion on CT chest. EDUARDO but COPD, very sedentary. On statin, aspirin; BP controlled . Seeing cards. Dementia 15772240 F03.90 stable. Seeing neuro q 6 months Smoker 40088958 F17.200 Not interested in quitting. Daughter restrictin g cigarettes to about 2/3 ppd (-prev 2 ppd) Headache 30998104 R51.9 Chronic, intermitte nt for years, maybe more pronounced since ICA stent? Already on nortriptyl ine, Lyrica. Ok to try one APAP 325-500 daily prn, if can identify triggers or relieving factors. Low blood pressure 83660 003 I95.9 See above. No signs or sx of infection, BP low measures and orthostati c sx coincident with starting Lasix. [id number] Sandy manuel MD [facility] (Peds) [address] [place] [address] 04/21/2024 09:11:10 04/24/2024 14:38:59 Essential hypertension 63384711 I10 BP measures lower coincident with marked decrease in smoking and alcohol. Amlodipine and lasix stopped. Daughter will continue to monitor and if consistent ly < 105 systolic, will contact office and plan further decrease meds. [id number] Sandy manuel MD [facility] (Peds) [address] [place] [address] 07/21/2024 11:28:08 07/23/2024 12:03:13 Viral syndrome 077524345 B34.9 cough, runny nose- worse sx should be reevaluate d in person. Bilateral arthritis of hands 6703272642 67240 M13.841 M13.842 Diclofenac refilled [id number] [facility] Pulido [facility] [place] [facility] [address] [place] [address] 08/10/2024 13:53:10 08/14/2024 14:45:32 Essential hypertension 18214015 I10 Coronary arteriosclerosis 62687417 I25.10 Chronic di astolic heart failure 052394060 I50.32 Mixed hyperlipidemia 267 355908 E78.2 Nicotine dependence 5629 4008 F17.942 [id number] Sandy manuel MD [facility] (Peds) [address] [place] [address] 08/18/2024 16:18:40 08/28/2024 12:42:06 Essential hypertension 74947648 I10 Daughter or aid will apply BP cuff, ideally on waking on am. Mr. Smith may or may not be suing cuff correctly. Phone fu one month review measures. Angina pectoris 17956397 0 I20.9 Cath pending Weight loss 89654002 R63 .4 Monitor, has reasonable appetite and feels well. Cough 44552296 R05.9 Sporadic - copd, gerd, ramona? Monitor for now. Make sure using an steroid/LA BA bid daily (has two different brands - will pick ONE) and if cough persists, may need consider switch to arb/dc ramona. Also consider add LAMA.. [id number] Ziyad Pulido MD [facility] [place] [address] [place] [address] 09/08/2024 13:53:22 09/09/2024 11:04:15 Coronary arteriosclerosis in [place] artery 4573692833 107 I25.118 I50.32 Peripheral vascular disease 809799859 I73.9 Benign ess ential hypertension 0873701 I10 Nicotine dependence 5629 4008 F17.200 Smoker 39214091 F17.619 [id number] Sandy manuel MD [facility] (Adult Med) [address] [place] [address] 09/17/2024 09:50:25 09/18/2024 15:10:28 Essential hypertension 82975312 I10 DC RAMONA and start ARB. Monitor BP at home and take measures to upcoming cardiology fu appt. Chronic cough 01655007 R 05.3 Due for annual LDCT, d/c RAMONA, + hx intermitte nt heartburn - start famotidine . PFTs pending Heartburn 10849724 R12 Chronic ob structive pulmonary disease 15823957 J44.9 Chronic, stable sx. Has three different steroid/LA BA - daughter will finish each sequential ly and fill ONE after that. Take Spiriva daily as well. Last PFTs 2019 Smoker [id number] F17.200 Not interested in quitting. Daughter restrictin g cigarettes to about 2/3 ppd (-prev 2 ppd) [id number] Ziyad Pulido MD [facility] [place] [address] [place] [address] 11/09/2024 13:57:12 11/10/2024 14:45:02 Coronary arteriosclerosis 84059661 I25.118 Chronic di astolic heart failure 689823171 I50.32 Essential hypertension 86301912 I10 Mixed hyperlipidemia 267 828627 E78.2 Peripheral arterial disease 009398758 I73.9 Smoker 22901420 F17.200 Overweight 976155984 E66 .3 Health Concerns Section Related Observation LastModified by Organization Detai ls LastModified Time None Recorded Concern Status LastModified by Organization Details LastModified Time None Recorded Advance Directives Directive None Recorded Payers Encounter Date Sequence Insurance Name Policy Number Policy Nixon Covered Member ID Nixon Member ID Guarantor Name 08/10/2024 1 [place] Radha Smith [id number] Radha Smith 08/10/2024 2 [place] MEDICARE REPLACEMENT PRIMARY) Radha Smith [id number] Radha Smith 08/18/2024 1 [place] Radha Smith [id number] Radha Smith 08/18/2024 2 [place] REPLACEMENT PR[place]) Radha Smith [id number] Radha Smith 09/08/2024 1 [place] Radha Smith [id number] Radha Smith 09/08/2024 2 [place]IC[place] REPLACEMENT PRIMARY) Radha Smith [id number] Radha Smith 09/17/2024 1 [place] Radha Smith [id number] Radha Smith 09/17/2024 2 [place] MEDICARE REPLACEMENT PRIMARY) Radha Smith [id number] Radha Smith 11/09/2024 1 [place] Radha Smith [id number] Radha Smith 11/09/2024 2 [place] OR MEDICARE REPLACEMENT PRIMARY) Radha Smith [id number] Radha Smith Notes Date Note Type Note Provider Name and Address Organization Details Recorded Time 08/10/2024 text/html Radha Smith is a 73 y.o. male who presents for ongoing evaluation and management of cardiac etiologies of dyspnea. History of hypertension, longstanding nicotine use, mixed hyperlipidemia history of peripheral arterial disease (occluded right ICA, high-grade left ICA stenosis status post TCAR by Dr. Mario Middleton in November 2023).Interval history:Since last evaluation he continues to have exertional dyspnea with NYHA class 3-4 symptoms. He denies any chest pain or pressure. No bleeding diathesis. On dual antiplatelet therapy. His daughter tells me that he had hypotension following furosemide after which she discontinued the furosemide. He did feel improvement in his dyspnea while on furosemide. Reports dry cough. Denies fever/chills, recent COVID, pneumonia Ziyad Pulido MD Attn: Accounting,[address] [facility], [place], [address], [facility] - [facility] 08/10/2024 14:59:25 08/18/2024 text/html 74 yo with cva, ICA stent, HTN, tobacco, dementia, hx of sz. Hx of labile BP measures on home measures. Has home monitoring that has been consistently elevated while BP treatment has been deescalated 2/2 to low BP at OVs and orthostatic sx. Suspected angina and cath pending. Vending Machine Assembler cut bblocker dose in half, restarted furosemide (and KCL). Sporadic cough noted at by daughter and pt - dry, self-limited. Sandy Huston MD Attn: Accounting,[address] [facility], [place], [address], [facility] - [facility] 08/21/2024 18:33:38 09/08/2024 text/html Radha Smith is a 73 y.o. male who presents for ongoing evaluation and management of cardiac etiologies of dyspnea. History of hypertension, longstanding nicotine use, mixed hyperlipidemia history of peripheral arterial disease (occluded right ICA, high-grade left ICA stenosis status post TCAR by Dr. Mario Middleton in November 2023). Cardiac catheterization August 25, 2024 with 60% distal LAD disease and occluded RCA managed medicallyInterval history:Continues to report dyspnea. Mild improvement with furosemide. No chest pain or pressure. Denies orthopnea or PND. No bleeding diathesis. Ziyad Pulido MD Attn: Accounting,[address] [place], [address], [place] - [facility] 09/08/2024 16:41:37 09/17/2024 text/html 74 yo with cva, ICA stent, HTN, tobacco, dementia, hx of sz and recent complaint of dry cough. Cough has not resolved with daily use of ICS/LABA. Sandy Huston MD Attn: Accounting,[address] [facility], [place], [address], [place] [facility] 09/17/2024 18:12:51 11/09/2024 text/html Radha Smith is a 73 y.o. male who presents for ongoing evaluation and management of cardiac etiologies of dyspnea. History of hypertension, longstanding nicotine use, mixed hyperlipidemia history of peripheral arterial disease (occluded right ICA, high-grade left ICA stenosis status post TCAR by Dr. Mario Middleton in November 2023). Cardiac catheterization August 25, 2024 with 60% distal LAD disease and occluded RCA managed medicallyInterval history:Dyspnea is improved. Denies chest pain or pressure. Tolerating furosemide and Jardiance without any adverse effects. Recent renal function normal. No bleeding diathesis. Participating in cardiac rehabilitation at [facility]. Ziyad Pulido MD Attn: Accounting,[address] [place], [address], [place] [facility] 11/09/2024 14:41:20
--- OUTSIDE RECORDS SUMMARY | 2024-12-07 11:05 | XMS_ITS | Clinical Summary ---
Author Organization [facility] Address [address] [place] [address] Care Team Providers Care Cloth Baler Name Role Phone Hector Redding MD Primary Care Provider Richie Jennings MD Unavailable [phone] Source Comments [facility],non-owned Affiliates and Associated Physician Practices is amultiple site organization consisting of ambulatory clinics and hospital sitesin [place], [place], [place] and [place]. This disclosure is being madepursuant to the Care Everywhere program and may not contain all information available regarding this patient. Last updated 18.[facility] Allergies No known active allergies Medications * Be aware that medications may not be up to date on this document. Alwaysverify current medications with the patient. traMADol (ULTRAM) 50 MG tablet Take 50 mg by mouth every 6 hours as needed. Active naproxen (NAPROSYN) 500 MG tablet Take 500 mg by mouth 2 times daily. Active amlodipine-olmes unruly (STEVE) 10-40 MG tablet Take 1 Tab by mouth once daily. Active methotrexate 2.5 MG tablet Take 8 Tabs by mouth every 7 days. 32 Tab 5 07/03/2012 Active predniSONE (DELTASONE) 5 MG tablet Take 1 Tab by mouth 2 times daily. 60 Tab 3 07/03/2012 Active vitamin D, ergocalciferol, (DRISDOL) 77485 UNITS capsule Take 1 Cap by mouth every 7 days. 4 Cap 4 07/14/2012 Active hydroxychloroqui ne (PLAQUENIL) 200 MG tablet Take 1 Tab by mouth 2 times daily. 60 Tab 11 07/23/2012 Active predniSONE (DELTASONE) 5 MG tablet Take 1 Tab by mouth 2 times daily. 90 Tab 6 07/23/2012 Active Active Problems Problem Noted Date Diagnosed Date Carpal tunnel syndrome 07/03/2012 Overview (07/03/2012): Surgery left hand HTN (hypertension) 07/03/2012 Family History Medical History Relation Name Comments Other Father unknown Other Mother unknown Other Other siblings unknow n Relation Name Status Comments Father Mother Other Sister Alive 4 Social History Tobacco Use Types Packs/Day Years Used Date Smoking Tobacco: Every Day Smokeless Tobacco: Never Alcohol Use Standard Drinks/Week Comments Yes 0 (1 standard drink = 0.6 oz pur e alcohol) Sex and Gender Information Value Date Recorded Sex Assigned at Not on file Legal Sex Male 6:03 AM COLLEGE OR UNIVERSITY DEPARTMENT HEAD Gender Identity Not on file Sexual Orientation Not on file Last Filed Vital Signs Vital Sign Reading Time Taken Comments Blood Pressure 150/88 07/23/2012 3:25 PM COLLEGE OR UNIVERSITY DEPARTMENT HEAD Pulse 100 07/23/2012 3:25 PM COLLEGE OR UNIVERSITY DEPARTMENT HEAD Temperature - - Respiratory Rate - - Oxygen Saturation - - Inhaled Oxygen Concentration - - Weight 67.9 kg (149 lb 9.6 oz) 07/23/2012 3:25 P M [employer]IV[employer]ITY DEPARTMENT HEAD Height 170.2 cm (5' 7) 07/03/2012 1:36 PM COLLEGE OR UNIVERSITY DEPARTMENT HEAD Body Mass Index 23.43 07/03/2012 1:36 PM COLLEGE OR UNIVERSITY DEPARTMENT HEAD Plan of Treatment Health Maintenance Due Date Last Done Comments COLOGUARD (AGES 45-75) - COL ON CA SCREENING 1950 COLON MONITORING 1950 COLONOSCOPY - COLON CA SCREENING 1950 CT COLONOGRAPHY - COLON CA SCREENING 1950 Colorectal Cancer Screening 1950 FIT - COLON CA SCREENING 1950 FLEX SIG - COLON CA SCREENING 1950 LIPID TESTING 1950 HEPATITIS C SCREENING 08/08/1968 DTAP/TDAP/TD VACCINES (1 - Tdap) 1969 PNEUMOCOCCAL VACCINE 50+ (1 of 2 - PCV) 1969 ZOSTER VACCINE (1 of 2) 2000 AAA SCREENING 2015 COVID-19 VACCINE ( - 2023-2 5 season) 2024 DEPRESSION SCREENING 07/15/2024 INFLUENZA VACCINE (Season Ended) 2025 Respiratory Syncytial Virus (RSV) Vaccine Pt: or over 60 yrs (1 - 1-dose 75+ series) 2025 HEPATITIS B VACCINE Aged Out No longe r eligible based on patient's age to complete this topic HIB VACCINE Aged Out No longer eligi ble based on patient's age to complete this topic HPV VACCINE Aged Out No longer eligi ble based on patient's age to complete this topic MENINGOCOCCAL (Group B) VACC INE SHARED DECISION-MAKING Aged Out No longer eligibl e based on patient's age to complete this topic MENINGOCOCCAL GROUPS A/C/Y/W VACCINE Aged Out No longer eligible b ased on patient's age to complete this topic Insurance MEDICARE Care Teams Cloth Baler Relationship Specialty Start Date End Date Hector Redding MD [address] [place] [address] PCP - General Internal Medicine 06/18/12 Richie Jennings MD [address] [place] [address] Rheumatology 07/22/12
--- OUTSIDE RECORDS SUMMARY | 2024-12-07 11:05 | XMS_ITS | Encounter Summary ---
Author Organization [facility] Healthcare Address [address] [place] [address] Care Team Providers Care Tennis Racket Repairer Name Role Phone Neelam Onofre MD Primary Care Prov ider Jacky Devlin MD Unavailable [phone] Ziyad Pulido MD Unavailable Alex Guzman MD Unavailable [phone] David Wilson MD Unavailable [phone] Encounter Details Date Type Department Care Team (Late st Contact Info) Description 03/04/2024 Documentation [facility] OP Physical Therapy [facility] [address] [address] Jennifer Alcaraz, PT Social History Tobacco Use Types Packs/Day Years Used Date Smoking Tobacco: Every Day Cigarettes 1 50 Smokeless Tobacco: Never Comments:Last cigarette 11/12 5 OASIS D0700: Social Isolation Answer Da te [...] materials from doctor or pharmacy Never 04/03/2023 [facility] Utilities Answer Date Recorded In the past 12 months has th e electric, gas, oil, or water company threatened to shut off services in your home? No 12/05/2023 Social Connection and Isolation Panel [NHANES] A nswer Date Recorded In a typical week, how many times do you talk on the phone with family, friends, or neighbors? Three times a week 12/05/2023 How often do you get togethe r with friends or relatives? Three times a week 12/05/2023 How often do you attend chur ch or gnosticism services? Never 12/05/2023 Do you belong to any clubs o r organizations such as baptism groups, unions, fraternal or athletic groups, or school groups? No 12/05/2023 How often do you attend meet ings of the clubs or organizations you belong to? Never 12/05/2023 Are you , , di vorced, , never , or living with a partner? 12/05/2023 AUDIT-C Answer Date Recorded Q1: How often do you have a drink containing alcohol? 4 or more times a week 12/04/2023 Q2: How many drinks containi ng alcohol do you have on a typical day when you are drinking? 5 or 6 Q3: How often do you have si x or more drinks on one occasion? Daily or almost daily 12/04/2023 Overall Financial Resource Strain (CARDIA) Answe r Date Recorded How hard is it for you to pa y for the very basics like food, housing, medical care, and heating? Not hard at all 12/05/2023 Hunger Vital Sign Answer Date Recorded Within the past 12 months, y ou worried that your food would run out before you got the money to buy more. Never true 12/05/19 24 Within the past 12 months, t he food you bought just didn't last and you didn't have money to get more. Never true 12/05/2023 PRAPARE - Transportation Answer Date Re corded In the past 12 months, has l ack of transportation kept you from medical appointments or from getting medications? No 11/13 In the past 12 months, has l ack of transportation kept you from meetings, work, or from getting things needed for daily living? No 12/05/2023 Housing Stability Vital Sign Answer Darryn e Recorded In the last 12 months, was t here a time when you were not able to pay the mortgage or rent on time? No 11/29/2023 In the last 12 months, how many places have you lived? 1 11/29/2023 In the last 12 months, was t here a time when you did not have a steady place to sleep or slept in a jail (including now)? No 11/29/2023 Housing Stability Vital Sign Answer Darryn e Recorded In the last 12 months, was t here a time when you were not able to pay the mortgage or rent on time? No 12/05/2023 In the past 12 months, how m any times have you moved where you were living? 1 12/05/2023 At any time in the past 12 m onths, were you homeless or living in a jail (including now)? No 12/05/2023 Personal Safety Answer Date Recorded Have you ever been in or are you currently in a harmful physical or emotional relationship or is someone making you feel afraid or unsafe? 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 Gender Identity Not on file Sexual Orientation [...] on filedocumented in this encounter Care Teams Tennis Racket Repairer Relationship Specialty Start Date End Date Neelam Onofre MD PCP - General 06/02/17 Jacky Devlin MD Referring Physician Gastroenterology 09/15/19 Ziyad Pulido MD Consulting Physician Cardiovascular Disease 11/14/23 Alex Guzman MD [address] [facility] [address] [place] [address] Surgeon Orthopedic Surgery 11/14/23 David Wilson MD [address] [facility] [address] [place] [address] Consulting Physician Neurology 12/12/23 documented as of this encounter
--- OUTSIDE RECORDS SUMMARY | 2024-12-07 11:05 | XMS_ITS | Encounter Summary ---
Author Organization [facility] Healthcare Address [address] [place] [address] Care Team Providers Care Anglesmith Name Role Phone Neelam Onofre MD Primary Care Prov ider Jacky Devlin MD Unavailable [phone] Ziyad Pulido MD Unavailable Alex Guzman MD Unavailable [phone] David Wilson MD Unavailable [phone] Encounter Details Date Type Department Care Team (Late st Contact Info) Description 12/02/2024 Results Follow-Up [facility] Neurology [address] [facility] [address] [place] [address] Clarissa Kumar, RASHMI [address] [address] MRI Cervical Spine WO Contrast Social History Tobacco Use Types Packs/Day Years [...] materials from doctor or pharmacy Never 04/03/2023 [facility] Utilities Answer Date Recorded In the [...] often do you attend chur ch or rastafari services? Never 12/05/2023 Do you belong to any clubs o r organizations such as yazdanism groups, unions, fraternal or athletic groups, or school groups? No 12/05/2023 How often do you attend meet ings of the clubs or organizations you belong to? Never 12/05/2023 Are you , , di vorced, , never , or living with a partner? 12/05/2023 AUDIT-C Answer Date Recorded Q1: How often do you have a drink containing alc ohol? 2-3 times a week 08/25/2024 Q2: How many drinks containi ng alcohol do you have on a typical day when you are drinking? 1 or 2 08/25/2024 Q3: How often do you have si x or more drinks on one occasion? Never 08/25/2024 Overall Financial Resource Strain (CARDIA) Answe r [...] place to sleep or slept in a mcc (including now)? No 11/29/2023 Housing Stability Vital Sign Answer Darryn e Recorded In the last 12 months, was t here a time when you were not able to pay the mortgage or rent on time? No 12/05/2023 In the past 12 months, how m any times have you moved where you were living? 1 12/05/2023 At any time in the past 12 m [facility], were you homeless or living in a mcc (including now)? No 12/05/2023 Personal Safety Answer Date Recorded Have you ever been in or are you currently in a harmful physical or emotional relationship or is someone making you feel afraid or unsafe? 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 Author CCM Chronic Pain Care Plan Chronic Care Management No Kristine Guadarrama, RN Note: Problem: Chronic Pain Goals: 1. Minimize further functional decline 2. Maximize quality of life 3. Control pain Strategies: - Activity/exercise program recommendation - Conservative stepwise pain medicine strategy with multi-disciplinary approach - Recommend healthy lifestyle strategies and compensatory methods as needed documented as of this encounter Visit Diagnoses Not on filedocumented in this encounter Care Teams Anglesmith Relationship Specialty Start Date End Date Neelam Onofre MD PCP - General 06/02/17 Jacky Devlin MD Referring Physician Gastroenterology 09/15/19 Ziyad Pulido MD Consulting Physician Cardiovascular Disease 11/14/23 Alex Guzman MD [address] [facility] [address] [place] [address] Surgeon Orthopedic Surgery 11/14/23 David Wilson MD [address] [address] Consulting Physician Neurology 12/12/23 documented as of this encounter
--- OUTSIDE RECORDS SUMMARY | 2024-12-07 11:05 | XMS_ITS | Encounter Summary ---
Author Organization [facility] Healthcare Address [address] [place] [address] Care Team Providers Care Accountant Machine Processing Name Role Phone Neelam Onofre MD Primary Care Prov ider Jacky Devlin MD Unavailable [phone] Ziyad Pulido MD Unavailable Alex Guzman MD Unavailable [phone] David Wilson MD Unavailable [phone] Reason for Visit * Reason Onset Date Comments No Show 06/10/2023 Due to his no sh ow, I called the main number on file. Patient's daughter ([place]) answered the phone and reported that her father didn't feel like getting out of bed today; she also stated that we can cancel his appointment for next week. Encounter Details Date Type Department Care Team (Late st Contact Info) Description 06/10/2023 Documentation [facility] OP Physical Therapy [address] [address] Vandnaa Slade, PT No Show (Due to his no show, I called the main number on file. 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 Gender Identity Not on file Sexual Orientation [...] on filedocumented in this encounter Care Teams Accountant Machine Processing Relationship Specialty Start Date End Date Neelam Onofre MD PCP - General 06/02/17 Jacky Devlin MD Referring Physician Gastroenterology 09/15/19 Ziyad Pulido MD Consulting Physician Cardiovascular Disease 11/14/23 Alex Guzman MD [address] [facility] [place] [address] Surgeon Orthopedic Surgery 11/14/23 David Wilson MD [facility] [address] [place] [address] Consulting Physician Neurology 12/12/23 documented as of this encounter
--- OUTSIDE RECORDS SUMMARY | 2024-12-07 11:05 | XMS_ITS | Referral Summary ---
Author Organization [facility] Address [address] [place] [address] Care Team Providers Care Tile Sprayer Name Role Phone Neelam Onofre MD Primary Care Prov ider Jacky Devlin MD Unavailable [phone] Ziyad Pulido MD Unavailable Alex Guzman MD Unavailable [phone] David Wilson MD Unavailable [phone] Encounters Date Type Department Care Team Description 12/02/2024 Results Follow-Up [facility] Neurology [address] [place] [address] [place] [id number] Clarissa Kumar NP MRI Cervical Spine WO Contrast 11/30/2024 12:15 PM CDT - 11/30/2024 11:59 PM CDT Hospital Encounter [facility] MRI [address] [place], [place] [id number] Neck pain Discharge Disposition: Discharge to home or self care 10/26/2024 1:00 PM CDT Office Visit [facility] Neurology [address] [place] [address] [place] [phone] Clarissa Kumar NP Ischemic cerebrovascular accident (CVA) (HCC) (Primary Dx); Seizure (HCC); Carotid stenosis, bilateral; Dizziness and giddiness; Neck pain; Chronic nonintractable headache, unspecified headache type; Dementia without behavioral disturbance (HCC) from Last 3 Months Allergies No known active allergies Medications albuterol HFA (PROVENTIL HFA,VENTOLIN HFA,PROAIR HFA) 90 mcg/actuation inhaler Inhale 2 puffs every 6 (six) hours as needed for wheezing or shortness of breath 05/13/20 20 Active aspirin 81 mg enteric coated tablet Take 1 tablet (81 mg total) by mouth daily 07/25/19 21 Active cholecalciferol (VITAMIN D-3) 25 mcg (1,000 unit) tablet Take 1 tablet (1,000 Units total) by mouth daily 07/25/19 21 Active polyethylene glycol (MIRALAX) 17 gram/dose powder Take 17 g by mouth daily as needed 05/13/20 20 Active tamsulosin (FLOMAX) 0.4 mg extended release capsule Take 1 capsule (0.4 mg total) by mouth daily 07/25/19 21 Active folic acid (FOLVITE) 1 mg tablet Take 1 tablet (1 mg total) by mouth daily with breakfast Active thiamine (VITAMIN B1) 100 mg tablet Take 1 tablet (100 mg total) by mouth daily Active nortriptyline (PAMELOR) 25 mg capsule Take 1 capsule (25 mg total) by mouth nightly Active clopidogreL (PLAVIX) 75 mg tablet Take 1 tablet (75 mg total) by mouth daily 02/12/20 23 Active multivitamin with minerals (MULTIPLE VITAMIN-MINERAL S ORAL) Take 1 tablet by mouth daily Active amLODIPine (NORVASC) 5 mg tablet Take 1 tablet (5 mg total) by mouth daily Active atorvastatin (LIPITOR) 80 mg tablet Take 1 tablet (80 mg total) by mouth daily Active fluticasone propion-salmete roL (ADVAIR HFA) 45-21 mcg/actuation inhaler Inhale 2 puffs 2 (two) times a day Rinse mouth with water after use. Do not swallow. Active carvediloL (COREG) 12.5 mg tablet Take 1 tablet (12.5 mg total) by mouth 2 (two) times a day with meals 60 tablet 11 12/12/19 24 025 Active lacosamide (VIMPAT) 100 mg tablet Take 1 tablet (100 mg total) by mouth 2 (two) times a day 60 tablet 12/12/19 24 Active Additional Information Patient not taking.Reported on 10/26/2024 levETIRAcetam (KEPPRA) 1,000 mg tablet Take 1 tablet (1,000 mg total) by mouth 2 (two) times a day 60 tablet 12/12/19 24 Active lisinopriL (PRINIVIL,ZESTR IL) 40 mg tablet Take 1 tablet (40 mg total) by mouth daily 30 tablet 12/13/19 24 025 Active diclofenac sodium (VOLTAREN) 1 % gel Apply 4 g topically 2 (two) times a day 100 g 3 03/09/20 24 Active furosemide (LASIX) 20 mg tablet Take 1 tablet (20 mg total) by mouth daily 30 tablet 5 03/10/20 24 025 Active potassium chloride ER (KLOR-CON) 20 mEq CR tablet Take 1 tablet (20 mEq total) by mouth daily 30 tablet 3 03/10/20 24 Active Additional Information Patient not taking.Reported on 10/26/2024 atorvastatin (LIPITOR) 20 mg tablet Take 1 tablet (20 mg total) by mouth daily 04/18/20 24 Active atorvastatin (LIPITOR) 40 mg tablet Take 1 tablet (40 mg total) by mouth daily 03/20/20 24 Active memantine (NAMENDA) 10 mg tabletIndicatio ns:Dementia without behavioral disturbance (HCC) Take 1 tablet (10 mg total) by mouth 2 (two) times a day 180 tablet 1 04/28/20 24 Active losartan (COZAAR) 25 mg tablet Take 1 tablet (25 mg total) by mouth daily 09/18/19 25 Active pregabalin (LYRICA) 150 mg capsuleIndicati ons:Complex regional pain syndrome type 2 of left upper extremity TAKE 1 CAPSULE BY MOUTH THREE TIMES A DAY 90 capsule 11/04/19 25 Active donepeziL (ARICEPT) 10 mg tabletIndicatio ns:Memory disturbance TAKE 1 TABLET BY MOUTH EVERY DAY AT NIGHT 90 tablet 11/24/19 25 Active baclofen (LIORESAL) 10 mg tablet TAKE 0.5 TABLETS (5 MG TOTAL) BY MOUTH 2 (TWO) TIMES A DAY NEEDED FOR MUSCLE SPASMS 90 tablet 11/24/19 25 Active donepeziL (ARICEPT) 10 mg tabletIndicatio ns:Memory disturbance TAKE 1 TABLET BY MOUTH EVERY DAY AT NIGHT 90 tablet 08/31/19 25 025 Discontinued baclofen (LIORESAL) 10 mg tablet TAKE 0.5 TABLETS (5 MG TOTAL) BY MOUTH 2 (TWO) TIMES A DAY NEEDED FOR MUSCLE SPASMS 90 tablet 08/31/19 25 025 Discontinued Active Problems Problem Noted Date Diagnosed Date Chronic nonintractable headache 10/27/2024 Coronary arteriosclerosis 08/11/2024 Tobacco abuse 07/27/2024 Assessment & Plan (07/27/2024 1:58 PM STORAGE ADMINISTRATOR): Impression: Patient is smoking approximately 12 cigarettes daily. Plan: Discussed with the patient greater than 3 minutes about the importance of smoking cessation and its benefits to the cardiovascular health. Discussed the effects smoking has on vascular interventions. Patient is currently working on decreasing the amount he smokes with the goal to completely quit. Dizziness and giddiness 04/28/2024 EDUARDO (dyspnea on exertion) 03/10/2024 Facial droop 12/10/2023 Seizure 12/10/2023 Disorientation 12/04/2023 Carotid stenosis, asymptomatic, left 11/28/2023 Preop cardiovascular exam 11/20/2023 Coronary artery calcification 11/20/2023 PAD (peripheral artery disease) 11/20/2023 Abnormal EKG 11/20/2023 Carotid stenosis, left 11/07/2023 Assessment & Plan (01/21/2024 12:39 PM CDT): Status post left TCAR, was readmitted the following week for seizures with possible reperfusion syndrome. Appears improved now. Discussed the importance strict blood pressure management, continue ASA Plavix statin therapy, we will continue ongoing surveillance with a repeat duplex in 6 months. He is scheduled to see Neurology here in a couple weeks. Assessment & Plan (11/07/2023 11:13 AM CDT): Critical stenosis of the left ICA with chronic right ICA occlusion. Given his cervical neck fusion I have recommended a TCAR over a CEA. Risks benefits alternatives to left TCAR discussed, risks including bleeding, infection, nerve injury, stroke, need for further surgery. He wished proceed. Continue ASA Plavix statin therapy good blood pressure control. Again I strongly encouraged him to quit smoking. Epistaxis 12/28/2021 RUTH (acute kidney injury) 12/28/2021 Sepsis 12/28/2021 COPD exacerbation 12/28/2021 Dementia without behavioral disturbance 12/26/19 22 ICAO (internal carotid artery occlusion), right 07/24/2021 Carotid stenosis, bilateral 04/18/2021 Assessment & Plan (07/27/2024 1:55 PM STORAGE ADMINISTRATOR): Impression: Patient has a known occlusion to the right internal carotid artery and is status post left TCAR. He remains asymptomatic. Carotid duplex reveals patent stent to the left internal carotid artery. Plan: Continue ongoing risk factor modifications. -Continue dual antiplatelet therapy of aspirin and Plavix. -patient follow-up in 6 months for re-evaluation with repeat carotid duplex. Encouraged patient make a sooner appointment if there is any concerns. Assessment & Plan (10/16/2023 1:03 PM CDT): Right ICA occlusion. Left ICA with critical stenosis based on duplex, continue risk factor modification with ASA statin therapy good blood pressure control. CTA head and neck ordered for further evaluation, if the left ICA is patent we did discuss he would likely need intervention. We will follow up next week. Assessment & Plan (09/23/2023 3:25 PM CDT): Based on CTA head and neck last year chronic right ICA occlusion with critical left ICA stenosis. Continue risk factor modification with ASA statin therapy good blood pressure control. Carotid duplex ordered for further evaluation, discussed management of carotid artery disease specifically if the carotid is occluded this would consist with medical management and surveillance, if the left ICA is still patent would likely need intervention. 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 Plan: Continue atorvastatin Assessment & Plan (11/07/2023 11:13 AM CDT): Stable continue Lipitor 20 mg. Assessment & Plan (10/16/2023 1:03 PM CDT): Stable continue Lipitor 40 mg. Assessment & Plan (09/23/2023 3:26 PM CDT): Stable continue Lipitor 20 mg. Functional weakness 02/27/2021 Hypokalemia due to loss of potassium 02/27/2021 Ischemic cerebrovascular accident (CVA) 02/28/20 21 Neuropathy of left hand 02/27/2021 Complex regional pain syndro me type 1 of left upper extremity 01/30/2021 Left hand pain 01/30/2021 Chronic pain 05/03/2017 Neck pain 05/03/2017 HTN (hypertension) 07/03/2012 Assessment & Plan (07/27/2024 1:56 PM STORAGE ADMINISTRATOR): Impression: Chronic and stable. Plan: Continue lisinopril, Lasix, and amlodipine. Assessment & Plan (11/07/2023 11:13 AM CDT): Stable continue amlodipine 2.5 mg Assessment & Plan (10/16/2023 1:03 PM CDT): Stable continue amlodipine 2.5 mg. Assessment & Plan (09/23/2023 3:26 PM CDT): Stable continue amlodipine 2.5 mg. Acute blood loss anemia Resolved Problems Problem Noted Date Diagnosed Date Resolved Date Sepsis 12/28/2021 12/28/2021 SIRS (systemic inflammatory response syndrome) 12/28/2021 12/28/2021 Immunizations Immunization Administration Dates Next Due Influenza, Quadrivalent, Split, Intramuscular Influenza, Trivalent, High D ose, Split, Preservative Free, Intramuscular 04/26/2020,04/19/2020 Influenza, Unspecified 04/19/2020,08/20/2019 Pneumococcal Conjugate PCV 13 06/26/2018 Pneumococcal Polysaccharide PPV23 04/26/2020,12/2019 Social History Tobacco Use Types Packs/Day Years [...] materials from doctor or pharmacy Never 04/03/2023 [facility] Utilities Answer Date Recorded In the past 12 months has th e [employer], gas, oil, or water company threatened to [...] often do you attend chur ch or presybeterian services? Never 12/05/2023 Do you belong to any clubs o r organizations such as congregational groups, unions, fraternal or athletic groups, or [...] place to sleep or slept in a alf (including now)? No 11/29/2023 Housing Stability Vital Sign Answer Darryn e Recorded In the last 12 months, was t here a time when you were not able to pay the mortgage or rent on time? No 12/05/2023 In the past 12 months, how m any times have you moved where you were living? 1 12/05/2023 At any time in the past 12 m [facility], were you homeless or living in a alf (including now)? No 12/05/2023 Personal Safety Answer Date Recorded Have you ever been in or are you currently in a harmful physical or emotional relationship or is someone making you feel afraid or unsafe? Denies 08/25/2024 Sex and Gender Information Value Date Recorded Sex Assigned at Not on file Legal Sex Male 4:49 AM STORAGE ADMINISTRATOR Gender Identity Not on file Sexual Orientation Not on file Last Filed Vital Signs Vital Sign Reading Time Taken Comments Blood Pressure 120/60 10/26/2024 12:57 PM CDT Pulse 90 10/26/2024 12:57 PM CDT Temperature 36.7 C (98 F) 08/25/2024 5:00 PM STORAGE ADMINISTRATOR Respiratory Rate 24 08/25/2024 6:30 PM STORAGE ADMINISTRATOR Oxygen Saturation 95% 10/26/2024 12:57 PM CDT Inhaled Oxygen Concentration - - Weight 82.1 kg (181 lb) 10/26/2024 12:57 PM CDT Height 167.6 cm (5' 5.98) 10/26/2024 12:57 PM C DT Body Mass Index 29.23 10/26/2024 12:57 PM CDT Plan of Treatment Not on file Goals Goal Patient Goal Type Associated Problems Recent Progress Patient-Stated? Author CCM Chronic Pain Care Plan Chronic Care Management Kristine Barragan, RN Note: Problem: Chronic Pain Goals: 1. Minimize further functional decline 2. Maximize quality of life 3. Control pain Strategies: - Activity/exercise program recommendation - Conservative stepwise pain medicine strategy with multi-disciplinary approach - Recommend healthy lifestyle strategies and compensatory methods as needed Medical Devices Implanted Type Area Cook Helper Fruit Device Identifier Shelf Expiration Date Model / Serial / Lot Mesh Mesh Abdomen [employer] Enroute Uber Flex 9mm .078in 40mm 57cm Delivery System Angle Tip Sr-0940-Cs - [id number] Implanted:Qty: 1 on 11/28/2023 by Mario Middleton MD at [facility] Stent Left: External Carotid Artery [employer] [id number] 03/14/2026 SR-0940- CS / / [id number] N/A: Neck Screws N/A: Neck Clamps N/A: Neck [employer] Wapi System Stent Peripheral Transcarotid [employer] Enroute 9x30mm Nitinol Sr-0930-Cs - [id number] Implanted:Qty: 1 on 11/28/2023 by Mario Middleton MD at [facility] Left: External Carotid Artery [employer] SR-0930- CS / / [id number] Procedures Procedure Name Priority Date/Time Associated Diagnosis Comments MRI CERVICAL SPINE WO CONTRAST Schedule Routine, Read Routine (OP Routine) 11/30/2024 2:14 PM CDT Neck pain BASIC METABOLIC PANEL Routine 10/19/2024 1:02 PM CDT EDUARDO (dyspnea on exertion) PAD (peripheral artery disease) Coronary artery calcification CT ABDOMEN PELVIS W WO CONTRAST Schedule Routine, Read Routine (OP Routine) 09/25/2022 8:45 AM CDT Abdominal pain, unspecified abdominal location from Last 3 Months or Most Recently Relevant to Health Maintenance Results * MRI Cervical Spine WO Contrast (11/30/2024 2:14 PM CDT) Anatomical Region Laterality Modality Spine N/A Magnetic Resonan ce 12/01/2024 9:15 AM CDT Narrative 12/01/2024 9:25 AM CDT EXAM DESCRIPTION: MRI CERVICAL SPINE WO CONTRAST REASON FOR STUDY: Neck pain, chronic, previous cervical surgery Previous neck fusion. Pain and numbness down left arm. TECHNIQUE: Sagittal and Axial imaging includes T1, T2, STIR and gradient echo sequences. COMPARISON: Cervical spine radiographs dated 02/18/2023. FINDINGS: Multiple of the sequences are degraded by motion related artifact. ALIGNMENT: Straightening of the cervical lordosis. VERTEBRAE: Scattered endplate degenerative changes with marginal spur formation. Additional degenerative changes of the C1-C2 level. DISCS: Mineralization and/or osseous fusion across the C4-C5 and C5-C6 disc space. There is intervertebral disc height loss at C6-C7. HARDWARE: Susceptibility signal relating to posterior instrumentation spanning C3-C7. CORD: The evaluation is limited by artifact. Right and left hemicord posterior margin well-circumscribed T2 hyperintense signal from C4-C5 through C6 could reflect myelomalacia/myelopathy. Posterior column involvement can also be seen with subacute combined degeneration of the cord and infectious and inflammatory pathologies. Other possibilities such as hereditary syndromes and demyelination would be included in the differential in the proper clinical scenario. Please correlate with the patient's history and physical examination and previous imaging studies. INDIVIDUAL LEVELS: C2-C3: No significant disc bulge. Thickened ligamentum flavum indents the dorsal thecal sac. Mild spinal canal stenosis. Uncovertebral spurring and facet arthropathy with moderate left and cobj-tn-aqzomian right neural foraminal narrowing. C3-C4: Surgical level. Spinal canal is decompressed posteriorly. Uncovertebral spurring and facet arthropathy with cudi-sp-zxqracjd right and mild left neural foraminal narrowing. C4-C5: Surgical level. The spinal canal is decompressed posteriorly. Neural foramen are obscured by metal related artifact, suspect bilateral narrowing. C5-C6: Surgical level. The spinal canal is decompressed posteriorly. Neural foramen are obscured by metal related artifact, suspect bilateral narrowing. C6-C7: Surgical level. The spinal canal is decompressed posteriorly. The neural foramen are obscured by metal related artifact, suspect bilateral narrowing. C7-T1: Minor disc bulge. Thickened ligamentum flavum indents the dorsal thecal sac. Mild spinal canal stenosis. Neural foramen are obscured by metal related artifact, no gross high-grade stenosis. UPPER THORACIC: Incompletely imaged. No high-grade spinal canal stenosis. IMPRESSION: 1. Status post C3-C7 posterior instrumentation with decompressive laminectomies. 2. Posterior cervical cord T2 hyperintense signal from C4 C5 through C6 could be myelopathy/myelomalacia as above. Request correlation with previous imaging studies and patient's clinical presentation. 3. Non operative level zkyo-go-lukpmfms disc degeneration with thickened ligamentum flavum, uncovertebral spurring and facet arthropathy as above. 4. Previous cervical spine MRI is not available for comparison. THIS IS AN ELECTRONICALLY VERIFIED FINAL REPORT 12/01/2024 9:25 AM - Electronically signed by Nicolas Granados D.O. AP T: Report ID: [id number] Reading Location: [place] [address] Procedure Note Nicolas Granados, DO - 12/01/2024 EXAM DESCRIPTION: MRI CERVICAL SPINE WO CONTRAST REASON FOR STUDY: Neck pain, chronic, previous cervical surgery Previous neck fusion. Pain and numbness down left arm. TECHNIQUE: Sagittal and Axial imaging includes T1, T2, STIR and gradientecho sequences. COMPARISON: Cervical spine radiographs dated 02/18/2023. FINDINGS: Multiple of the sequences are degraded by motion related artifact. ALIGNMENT: Straightening of the cervical lordosis. VERTEBRAE: Scattered endplate degenerative changes with marginal spur formation. Additional degenerative changes of the C1-C2 level. DISCS: Mineralization and/or osseous fusion across the C4-C5 and C5-C6disc space. There is intervertebral disc height loss at C6-C7. HARDWARE: Susceptibility signal relating to posterior instrumentation spanning C3-C7. CORD: The evaluation is limited by artifact. Right and left hemicord posterior margin well-circumscribed T2 hyperintense signal from C4-E0djpkbzi C6 could reflect myelomalacia/myelopathy. Posterior column involvementcan also be seen with subacute combined degeneration of the cord andinfectious and inflammatory pathologies. Other possibilities such as hereditary syndromes and demyelination would be included in the differential in the proper clinical scenario. Please correlate with the patient's history and physical examination and previous imaging studies. INDIVIDUAL LEVELS: C2-C3: No significant disc bulge. Thickened ligamentum flavum indents the dorsal thecal sac. Mild spinal canal stenosis. Uncovertebral spurringand facet arthropathy with moderate left and frge-ay-nffuiufz right neural foraminal narrowing. C3-C4: Surgical level. Spinal canal is decompressed posteriorly. Uncovertebral spurring and facet arthropathy with tnne-zm-fysnlfvw rightand mild left neural foraminal narrowing. C4-C5: Surgical level. The spinal canal is decompressed posteriorly.Neural foramen are obscured by metal related artifact, suspect bilateralnarrowing. C5-C6: Surgical level. The spinal canal is decompressed posteriorly.Neural foramen are obscured by metal related artifact, suspect bilateralnarrowing. C6-C7: Surgical level. The spinal canal is decompressed posteriorly. The neural foramen are obscured by metal related artifact, suspect bilateral narrowing. C7-T1: Minor disc bulge. Thickened ligamentum flavum indents the dorsal thecal sac. Mild spinal canal stenosis. Neural foramen are obscured bymetal related artifact, no gross high-grade stenosis. UPPER THORACIC: Incompletely imaged. No high-grade spinal canalstenosis. IMPRESSION: 1. Status post C3-C7 posterior instrumentation with decompressive laminectomies. 2. Posterior cervical cord T2 hyperintense signal from C4 C5 through C6 could be myelopathy/myelomalacia as above. Request correlation withprevious imaging studies and patient's clinical presentation. 3. Non operative level phil-an-cdhlexfp disc degeneration with thickened ligamentum flavum, uncovertebral spurring and facet arthropathy as above. 4. Previous cervical spine MRI is not available for comparison. THIS IS AN ELECTRONICALLY VERIFIED FINAL REPORT 12/01/2024 9:25 AM - Electronically signed by Nicolas FERRO T: Report ID: [id number] Reading Location: [place] [address] Clarissa Dunajcik [facility] MRI PROCEDURES Final Res ult * Basic metabolic panel (10/19/2024 1:02 PM CDT) Glucose 71 65 - 139 mg/dL Rafael [employer] Muro Comment: Non-fasting reference interval BUN 15 7 - 25 mg/dL Rafael Muro Creatinine 0.93 0.70 - 1.28 mg/dL Rafael Muro eGFR 86 > OR = 60 mL/min/1.7 3m2 Rafael [employer] Muro BUN/creat ratio SEE NOTE: 6 (calc) Rafael [employer] Muro Comment: Not Reported: BUN and Creatinine are within reference range. Sodium 142 135 - 146 mmol/L Rafael Muro Potassium, pl 4.6 3.5 - 5.3 mmol/L Rafael Muro Chloride 103 98 - 110 mmol/L Rafael Terryi[employer].msCourtney Muro CO2 30 20 - 32 mmol/L [employer] Muro Calcium 9.5 8.6 - 10.3 mg/dL [employer] Marai4.msCourtney Muro Blood 10/19/2024 1:02 PM CDT 10/19/2024 1:03 PM CDT Narrative [facility] - 10/20/2024 2:29 AM CDT INSURANCE VERIFIED FASTING:NO FASTING: NO us Ziyad Pulido MD LAB BLOOD ORDERABLES Final [facility]ul [facility] [address] [place] [address] * CT Abdomen Pelvis W WO Contrast (09/25/2022 8:45 AM CDT) Anatomical Region Laterality Modality Body N/A Computed Tomogra phy 09/25/2022 11:4 6 PM CDT Narrative 09/25/2022 11:55 PM CDT EXAM DESCRIPTION: CT ABDOMEN PELVIS W WO CONTRAST REASON FOR STUDY: ABDOMINAL PAIN Mid abd pain for one month. No other complaints. Hx of hernia repair. TECHNIQUE: CT scan of the abdomen and pelvis performed without and with intravenous and without oral contrast using helical scanning technique with dynamic intravenous contrast injection. Reconstructed coronal and sagittal MPR images reviewed. All images stored on PACS. Automated exposure control was used as a dose optimization technique for this examination. CONTRAST TYPE/DOSE: 100mL of IOVERSOL 350 MG IODINE/ML INTRAVENOUS SYRINGE injected via intravenous COMPARISON: 12/28/2021 REFERENCE: Per ACR white paper recommendations, unless otherwise specified no follow-up imaging is recommended for incidental renal and adrenal lesions per consensus recommendations based on imaging criteria. Further lab evaluation could be pursued based on clinical findings. FINDINGS: LOWER CHEST: 7 mm nodule in the right costophrenic sulcus has enlarged 5 mm on the January 03 prior. 9 mm left lower lobe nodule image 7/170 is possibly present on the top image of the prior study but not fully included, new since 2018. Small scar at the left hemidiaphragm dome. Heart size slightly small with coronary artery calcifications. No effusion. LIVER/BILIARY: Liver unremarkable. Biliary tree normal in caliber. GALLBLADDER: Normal. SPLEEN: Normal. PANCREAS: Normal. ADRENAL GLANDS: Normal. KIDNEYS/URINARY TRACT: Unremarkable. GI: Stomach and small bowel appear normal. Colon and appendix unremarkable. OTHER ABDOMINAL/PELVIS: Major vascular structures are grossly patent and normal in caliber. Moderate diffuse atherosclerotic calcification. Moderate atherosclerotic plaque at the origin of both superficial femoral arteries. Mild mesenteric haziness unchanged. MSK: Moderate disc disease and facet arthropathy. Hip and SI joint arthrosis. BODY WALL: Unremarkable. IMPRESSION: 1. No bowel inflammation or other abnormality identified to account for abdominal pain. 2. 8 pulmonary nodule in the right costophrenic sulcus has enlarged from 5 mm to 7 mm since 12/28/2021. A 9 mm left lower lobe nodule may have been present on the prior but only the bottom-most aspect is included. This nodule is new since 2018. These are indeterminate; no evidence of malignancy is identified in the abdomen/pelvis but follow-up is recommended as below. Recent guidelines by the Fleischner Society (Radiology 511785,2017) divides patient into low vs. high risk (for example, patients who smoke are considered high risk) and provides followup recommendations as follows: MULTIPLE PULMONARY NODULES: Patients considered LOW RISK for lung cancer and multiple nodules larger than 8 mm in diameter require follow-up CT at 3-6 months, then consider CT at 18-24 months. In patients at HIGHER RISK, for example smokers, require follow-up CT at 3-6 months, then CT at 18-24 months. Note: These recommendations do not apply to lung cancer screening, patients with immunosuppression, or patients with known primary cancer. http://pubs.rsna.org/doi/pdf/10.1148/radiol.5371415601 THIS IS AN ELECTRONICALLY VERIFIED FINAL REPORT 09/25/2022 11:55 PM - Electronically signed by Harish Azevedo M.D. AR: JADYN Report ID: [id number] Reading Location: [id number] Procedure Note Harish Azevedo MD - 09/25/2022 EXAM DESCRIPTION: CT ABDOMEN PELVIS W WO CONTRAST REASON FOR STUDY: ABDOMINAL PAIN Mid abd pain for one month. No other complaints. Hx of hernia repair. TECHNIQUE: CT scan of the abdomen and pelvis performed without and with intravenous and without oral contrast using helical scanning techniquewith dynamic intravenous contrast injection. Reconstructed coronal and sagittalMPR images reviewed. All images stored on PACS. Automated exposure control was used as a dose optimization technique forthis examination. CONTRAST TYPE/DOSE: 100mL of IOVERSOL 350 MG IODINE/ML INTRAVENOUSSYRINGE injected via intravenous COMPARISON: 12/28/2021 REFERENCE: Per ACR white paper recommendations, unless otherwise specifiedno follow-up imaging is recommended for incidental renal and adrenal lesionsper consensus recommendations based on imaging criteria. Further labevaluation could be pursued based on clinical findings. FINDINGS: LOWER CHEST: 7 mm nodule in the right costophrenic sulcus has enlarged 5mm on the January 03 prior. 9 mm left lower lobe nodule image 7/170 is possibly present on the top image of the prior study but not fully included, newsince 2018. Small scar at the left hemidiaphragm dome. Heart size slightlysmall with coronary artery calcifications. No effusion. LIVER/BILIARY: Liver unremarkable. Biliary tree normal in caliber. GALLBLADDER: Normal. SPLEEN: Normal. PANCREAS: Normal. ADRENAL GLANDS: Normal. KIDNEYS/URINARY TRACT: Unremarkable. GI: Stomach and small bowel appear normal. Colon and appendixunremarkable. OTHER ABDOMINAL/PELVIS: Major vascular structures are grossly patent and normal in caliber. Moderate diffuse atherosclerotic calcification.Moderate atherosclerotic plaque at the origin of both superficial femoral arteries. Mild mesenteric haziness unchanged. MSK: Moderate disc disease and facet arthropathy. Hip and SI joint arthrosis. BODY WALL: Unremarkable. IMPRESSION: 1. No bowel inflammation or other abnormality identified to account for abdominal pain. 2. 8 pulmonary nodule in the right costophrenic sulcus has enlarged from5 mm to 7 mm since 12/28/2021. A 9 mm left lower lobe nodule may have been present on the prior but only the bottom-most aspect is included. Thisnodule is new since 2018. These are indeterminate; no evidence of malignancy is identified in the abdomen/pelvis but follow-up is recommended as below. Recent guidelines by the Fleischner Society (Radiology 996280,2017)divides patient into low vs. high risk (for example, patients who smoke areconsidered high risk) and provides followup recommendations as follows: MULTIPLE PULMONARY NODULES: Patients considered LOW RISK for lung cancerand multiple nodules larger than 8 mm in diameter require follow-up CT at 3-6 months, then consider CT at 18-24 months. In patients at HIGHER RISK, for example smokers, require follow-up CT at 3-6 months, then CT at 18-24months. Note: These recommendations do not apply to lung cancer screening,patients with immunosuppression, or patients with known primary cancer. http://pubs.rsna.org/doi/pdf/10.1148/radiol.9022766067 THIS IS AN ELECTRONICALLY VERIFIED FINAL REPORT 09/25/2022 11:55 PM - Electronically signed by Harish Azevedo M.D. AR: JADYN Report ID: [id number] Reading Location: [place] [address] Neelam Beverly Onofre MD IM CT PROCEDURES Final Result from Last 3 Months or Most Recently Relevant to Health Maintenance Insurance MEDICARE [facility] MEDICARE [facility] MEDICARE [employer] MEDICARE [facility] Advance Directives For more information, please contact: [phone] Documents on File Type Date Recorded Patient Hall Clerk Expl anation ADVANCE DIRECTIVE 11/28/2023 11:42 AM Agu[employer] * Full Code (Latest Code Status on File) Date Activated Date Inactivated Comments 12/04/2023 4:37 PM 12/12/2023 5:53 PM * Full Code Date Activated Date Inactivated Comments 11/28/2023 2:41 PM 11/29/2023 9:08 PM * Full Code Date Activated Date Inactivated Comments 12/28/2021 7:56 PM 12/31/2021 6:23 PM Care Teams Tile Sprayer Relationship Specialty Start Date End Date Neelam Onofre MD PCP - General 06/02/17 Jacky Devlin MD Referring Physician Gastroenterology 09/15/19 Ziyad Pulido MD Consulting Physician Cardiovascular Disease 11/14/23 Alex Guzman MD [address] [facility] [address] [place] [address] Surgeon Orthopedic Surgery 11/14/23 David Wilson MD [address] [facility] [address] [place] [address] [place] [address] Consulting Physician Neurology 12/12/23
--- OUTSIDE RECORDS SUMMARY | 2024-12-07 11:05 | XMS_ITS | Encounter Summary ---
Author Organization [facility] Address [address] [place] [address] Phone Care Team Providers Care Stove Installer Name Role Phone Neelam Onofre MD Primary Care Prov ider Jacky Devlin MD Unavailable [phone] Shaw Yancey DPT Unavailable [phone] Ziyad Pulido MD Unavailable Alex Guzman MD Unavailable [phone] David Wilson MD Unavailable [phone] Reason for Visit * Reason Onset Date Comments Test Results 01/05/2020 Encounter Details Date Type Department Care Team (Late st Contact Info) Description 01/05/2020 Telephone [facility] Pediatric Genetics [facility] 2nd [place] [address] [place] [id number] Korin Banks Test Results Social History Tobacco Use Types Packs/Day Years Used Date Smoking Tobacco: Never Assessed Sex and Gender Information Value Date Recorded Sex Assigned at Not on file Legal Sex Male 4:49 AM WRAPPER OFF Gender Identity Not on file Sexual Orientation Not on file documented as of this encounter Plan of Treatment Not on file documented as of this encounter Visit Diagnoses Not on filedocumented in this encounter Additional Health Concerns Infection Onset Date Last Indicated Resolved Time COVID: Suspected 04/22/2020 04/22/2020 04/23/2020 12:11 AM CDT Respiratory Infection (ARCHIE), contact + droplet Comment:Automatically added due to negative COVID-19 result. 04/23/2020 04/23/2020 05/07/2020 3:0 6 AM CDT COVID19 08/02/2020 08/02/2020 08/16/2020 3:07 AM WRAPPER OFF COVID: Recovered Comment:Added based on recent COVID infection. 08/16/2020 09/08/2020 12/14/2020 3:05 AM C DT COVID: Suspected 12/28/2021 12/28/2021 12/28/2021 1:29 PM CDT documented as of this encounter Care Teams Stove Installer Relationship Specialty Start Date End Date Neelam Onofre MD PCP - General 06/02/17 Jacky Devlin MD Referring Physician Gastroenterology 09/15/19 Shaw Yancey, DPT [address] [place] [id number] [address] Physical Therapist Physical Therapy 03/03/21 11/12/21 Ziyad Pulido MD [address] [place] [id number] [address] Consulting Physician Cardiovascular Disease 11/14/23 Alex Guzman MD [address] [place] [address] [address] [place] [address] Surgeon Orthopedic Surgery 11/14/23 David Wilson MD [address] [place] [address] Consulting Physician Neurology 12/12/23 documented as of this encounter
--- OUTSIDE RECORDS SUMMARY | 2024-12-07 11:05 | XMS_ITS | Clinical Summary ---
Author Organization [facility] Address [facility] [place] [address] Care Team Providers Care Chain Carrier Name Role Phone Neelam Onofre MD Primary Care Prov ider Jacky Devlin MD Unavailable [phone] Ziyad Pulido MD Unavailable Alex Guzman MD Unavailable [phone] David Wilson MD Unavailable [phone] Allergies No known active allergies Medications albuterol [...] 07/27/2024 Assessment & Plan (07/27/2024 1:58 PM SCREW DRIVER OPERATOR): Impression: Patient is smoking approximately 12 cigarettes [...] exacerbation 12/28/2021 Dementia without behavioral disturbance 12/26/19 ICAO (internal carotid artery occlusion), right 07/24/2021 Carotid stenosis, bilateral 04/18/2021 Assessment & Plan (07/27/2024 1:55 PM SCREW DRIVER OPERATOR): Impression: Patient has a known occlusion to [...] 02/27/2021 Assessment & Plan (07/27/2024 1:56 PM SCREW DRIVER OPERATOR): Impression: Chronic stable. Plan: Continue atorvastatin Assessment [...] 07/03/2012 Assessment & Plan (07/27/2024 1:56 PM SCREW DRIVER OPERATOR): Impression: Chronic and stable. Plan: Continue lisinopril, [...] SIRS (systemic inflammatory response syndrome) 12/28/2021 12/28/2021 Encounters Date Type Department Care Team Description 12/02/2024 Results Follow-Up [facility] Neurology [address] [place] [phone] Clarissa Kumar NP MRI Cervical Spine WO Contrast 11/30/2024 12:15 PM CDT - 11/30/2024 11:59 PM CDT Hospital Encounter [facility] MRI [address] [place] [address] Neck pain Discharge Disposition: Discharge to home or self care 10/26/2024 1:00 PM CDT Office Visit [facility] Neurology [address] [place] [phone] Clarissa Kumar NP Ischemic cerebrovascular accident (CVA) (HCC) (Primary Dx); Seizure (HCC); Carotid stenosis, bilateral; Dizziness and giddiness; Neck pain; Chronic nonintractable headache, unspecified headache type; Dementia without behavioral disturbance (HCC) from Last 3 Months Immunizations Immunization Administration Dates Next Due Influenza, Quadrivalent, Split, Intramuscular Influenza, Trivalent, High D ose, Split, Preservative Free, Intramuscular 04/26/2020,04/19/2020 Influenza, Unspecified 04/19/2020,08/20/2019 Pneumococcal Conjugate PCV 13 06/26/2018 Pneumococcal Polysaccharide PPV23 04/26/2020,12/2019 Surgical History Surgery Date Site/Laterality Comments OH UNLISTED PROCEDURE ABDOME N PERITONEUM & OMENTUM Hernia Repair - (Added by TW Conv) NECK SURGERY Neck Surgery - (Added by TW Conv)has dom and 15 screws HERNIA REPAIR abdominal hernia TONSILLECTOMY as a child ADENOIDECTOMY as a child COLONOSCOPY LUNG BIOPSY for lesions CARPAL TUNNEL RELEASE Left CAROTID ARTERY ANGIOPLASTY Left Daughter stated about 6 months ago CARDIAC CATHETERIZATION 08/25/2024 N/A Procedure: LEFT HEART CATHETERIZATION WITH CORONARY ANGIOGRAPHY AND WITH OR WITHOUT LEFT VENTRICULOGRAM [id number]; Surgeon: Ramiro Miguel MD; Location: [facility] CARDIAC DRY KILN LOADER; Service: Cardiovascular; Laterality: N/A; Medical History Medical History Date Comments Neck pain Blurred vision Ringing in the ears Hypertension Shortness of breath Hiatal hernia Arthritis Swelling of multiple joints Loss of coordination Stroke (HCC) around 2021, no residual, TIA Muscle pain History of shingles Weakness Numbness and tingling Hyperlipidemia Lung disease Neuropathy Dementia (HCC) mild per erick bethea and can sign paper for his self Headache Eczema legs Ambulates with cane Wears glasses Dental bridge present upper Teeth missing Carotid stenosis, left Gait abnormality Family History Medical History Relation Name Comments No Known Problems Father Heart disease Mother Relation Name Status Comments Father Mother Social History Tobacco Use Types Packs/Day Years Used Date Smoking Tobacco: Every Day Cigarettes 1 50 Smokeless Tobacco: Never Comments:Last cigarette 11/12 OASIS D0700: Social Isolation Answer Da te [...] materials from doctor or pharmacy Never 04/03/2023 [facility] Utilities Answer Date Recorded In the past 12 months has th e [employer], gas, oil, or water [employer] threatened to shut off services in your [...] often do you attend chur ch or catholic services? Never 12/05/2023 Do you belong to any clubs o r organizations such as judaism groups, unions, fraternal or athletic groups, or [...] place to sleep or slept in a halfway (including now)? No 11/29/2023 Housing Stability Vital Sign Answer Darryn e Recorded In the last 12 months, was t here a time when you were not able to pay the mortgage or rent on time? No 12/05/2023 In the past 12 months, how m any times have you moved where you were living? 1 12/05/2023 At any time in the past 12 m [facility], were you homeless or living in a halfway (including now)? No 12/05/2023 Personal Safety Answer Date Recorded Have you ever been in or are you currently in a harmful physical or emotional relationship or is someone making you feel afraid or unsafe? Denies 08/25/2024 Sex and Gender Information Value Date Recorded Sex Assigned at Not on file Legal Sex Male 4:49 AM SCREW DRIVER OPERATOR Gender Identity Not on file Sexual Orientation Not on file Obstetrics History Last Filed Vital Signs Vital Sign Reading Time Taken Comments Blood Pressure 120/60 10/26/2024 12:57 PM CDT Pulse 90 10/26/2024 12:57 PM CDT Temperature 36.7 C (98 F) 08/25/2024 5:00 PM SCREW DRIVER OPERATOR Respiratory Rate 24 08/25/2024 6:30 PM SCREW DRIVER OPERATOR Oxygen Saturation 95% 10/26/2024 12:57 PM CDT Inhaled Oxygen Concentration - - Weight 82.1 kg (181 lb) 10/26/2024 12:57 PM CDT Height 167.6 cm (5' 5.98) 10/26/2024 12:57 PM C DT Body Mass Index 29.23 10/26/2024 12:57 PM CDT Plan of Treatment Health Maintenance Due Date Last Done Comments Colon Cancer Screening-Colonoscopy 1950 Depression Screening 1950 Hepatitis C Screening 1950 Prostate Cancer Screening-PSA 1950 DTaP/Tdap/Td Vaccine (1 - Tdap) 1961 Hepatitis B Screening 1968 Lung Cancer Screening 2000 Zoster Vaccine (1 of 2) 2000 Well Visit 65+ 2015 Covid-19 Vaccine (3 - 2023-2 5 season) 2024 09/05/2022, 06/15/2021 Fall Risk Assessment 12/11/2024 12/12/2023 Pneumococcal vaccine 65+ Completed 020, 08/20/2019, 06/26/2018 Abdominal Aortic Aneurysm (A AA) Screen Completed 09/25/2022, 12/28/2021, 12/12/2017, Additional history exists Influenza Vaccine Completed 04/16/2024, , 04/26/2020, Additional history exists Goals Goal Patient Goal Type Associated Problems [...] as needed Medical Devices Implanted Type Area Round Up Ring Hand Device Identifier Shelf Expiration Date Model / Serial / Lot Mesh Mesh Abdomen [employer] Enroute Uber Flex 9mm .078in 40mm 57cm Delivery System Angle Tip Sr-0940-Cs - [id number] Implanted:Qty: 1 on 11/28/2023 by Mario Middleton MD at [facility] Stent Left: External Carotid Artery [employer] [id number] 03/14/2026 SR-0940- CS / / [id number] N/A: Neck Screws N/A: Neck Clamps N/A: Neck [employer] System Stent Peripheral Transcarotid [employer] Enroute 9x30mm Nitinol Sr-0930-Cs - [id number] Implanted:Qty: 1 on 11/28/2023 by Mario Middleton MD at [facility] Left: External Carotid Artery [employer] SR-0930- CS / / [id number] Procedures Procedure Name Priority Date/Time Associated Diagnosis [...] and facet arthropathy with moderate left and nbzh-xd-zqrwixxv right neural foraminal narrowing. C3-C4: Surgical level. Spinal canal is decompressed posteriorly. Uncovertebral spurring and facet arthropathy with qaix-xw-yoajuutc right and mild left neural foraminal narrowing. [...] patient's clinical presentation. 3. Non operative level mkzk-xe-ovwrlabu disc degeneration with thickened ligamentum flavum, uncovertebral spurring and facet arthropathy as above. 4. Previous cervical spine MRI is not available for comparison. THIS IS AN ELECTRONICALLY VERIFIED FINAL REPORT 12/01/2024 9:25 AM - Electronically signed by Nicolas Granados D.O. AP T: Report ID: [id number] Reading Location: [place] [address] Procedure Note Nicolas Granados, DO - 12/01/2024 [...] posterior margin well-circumscribed T2 hyperintense signal from C4-M7jotyoym C6 could reflect myelomalacia/myelopathy. Posterior column involvementcan [...] spurringand facet arthropathy with moderate left and zhna-qn-vcycvmeu right neural foraminal narrowing. C3-C4: Surgical level. Spinal canal is decompressed posteriorly. Uncovertebral spurring and facet arthropathy with oncp-hx-vxfzjfsi rightand mild left neural foraminal narrowing. C4-C5: [...] patient's clinical presentation. 3. Non operative level naoc-ev-odikvqhw disc degeneration with thickened ligamentum flavum, uncovertebral spurring and facet arthropathy as above. 4. Previous cervical spine MRI is not available for comparison. THIS IS AN ELECTRONICALLY VERIFIED FINAL REPORT 12/01/2024 9:25 AM - Electronically signed by Nicolas FERRO T: Report ID: [id number] Reading Location: [place] [address] Clarissa Dunajcik ACTIVATED SLUDGE OPERATOR IMG MRI PROCEDURES Final Res ult * Basic metabolic panel (10/19/2024 1:02 PM CDT) Glucose 71 65 - 139 mg/dL Rafael RivalSoftSantiago Muro Comment: Non-fasting reference interval BUN 15 7 - 25 mg/dL Rafael Muro Creatinine 0.93 0.70 - 1.28 mg/dL Rafael Muro eGFR 86 > OR = 60 mL/min/1.7 3m2 Rafael RivalSoftSantiago Muro BUN/creat ratio SEE NOTE: 6 - 22 (calc) Rafael ZENTICKETCourtney Muro Comment: Not Reported: BUN and Creatinine are within reference range. Sodium 142 135 - 146 mmol/L Rafael TerryPriceline Driving SchoolCourtney Muro Potassium, pl 4.6 3.5 - 5.3 mmol/L Rafael Muro Chloride 103 98 - 110 mmol/L Rafael TerryPriceline Driving SchoolCourtney Muro CO2 30 20 - 32 mmol/L AuralityCourtney Muro Calcium 9.5 8.6 - 10.3 mg/dL AuralityCourtney Muro Blood 10/19/2024 1:02 PM CDT 10/19/2024 1:03 PM CDT Narrative [facility] - 10/20/2024 2:29 AM CDT INSURANCE VERIFIED FASTING:NO FASTING: NO us Ziyad Pulido MD LAB BLOOD ORDERABLES Final Resul t [facility] [address] [place] [address] * CT Abdomen Pelvis W WO Contrast [...] Recent guidelines by the Fleischner Society (Radiology 596901,2017) divides patient into low vs. high risk [...] immunosuppression, or patients with known primary cancer. http://pubs.rsna.org/doi/pdf/10.1148/radiol.5852517436 THIS IS AN ELECTRONICALLY VERIFIED FINAL REPORT 09/25/2022 11:55 PM - Electronically signed by Harish Azevedo M.D. AR: JADYN Report ID: [id number] Reading Location: [id number] Procedure Note Harish Azevedo MD - 09/25/2022 [...] Recent guidelines by the Fleischner Society (Radiology 290118,2017)divides patient into low vs. high risk (for [...] immunosuppression, or patients with known primary cancer. http://pubs.rsna.org/doi/pdf/10.1148/radiol.8963770971 THIS IS AN ELECTRONICALLY VERIFIED FINAL REPORT 09/25/2022 11:55 PM - Electronically signed by Harish Azevedo M.D. AR: JADYN Report ID: [id number] Reading Location: [place] [address] Neelam Onofre MD IM CT PROCEDURES Final Result from Last 3 Months or Most Recently Relevant to Health Maintenance Insurance MEDICARE [facility] Address: [address] [place] [phone] [facility] MEDICARE [facility] Address: [address] [address] [facility] MEDICARE [employer] MEDICARE [employer] Advance Directives For more information, please contact: [phone] Documents on File Type Date Recorded Patient Consignee Expl anation ADVANCE DIRECTIVE 11/28/2023 11:42 AM Aguilar r of [employer] * Full Code (Latest Code Status on File) Date Activated Date Inactivated Comments 12/04/2023 4:37 PM 12/12/2023 5:53 PM * Full Code Date Activated Date Inactivated Comments 11/28/2023 2:41 PM 11/29/2023 9:08 PM * Full Code Date Activated Date Inactivated Comments 12/28/2021 7:56 PM 12/31/2021 6:23 PM Care Teams Chain Carrier Relationship Specialty Start Date End Date Neelam Onofre MD PCP - General 06/02/17 Jacky Devlin MD Referring Physician Gastroenterology 09/15/19 Ziyad Pulido MD Consulting Physician Cardiovascular Disease 11/14/23 Alex Guzman MD [address] [facility] [address] [place] [address] Surgeon Orthopedic Surgery 11/14/23 David Wilson MD [address] [facility] [address] [place] [address] [place] [address] Consulting Physician Neurology 12/12/23
[2024-12-07 11:09] VITALS: BP 125/56; PULSE 92; RESP 16; TEMP 36.3; O2SAT 96
--- OUTSIDE RECORDS SUMMARY | 2024-12-07 12:30 | XMS_ITS | Clinical Summary ---
Author Organization [facility] Address [facility] [place] [address] Care Team Providers Care Braided Rug Maker Name Role Phone Neelam Onofre MD Primary Care Prov ider Jacky Devlin MD Unavailable [phone] Ziyad Pulido MD Unavailable Alex Guzman MD Unavailable [phone] David Wilson MD Unavailable [phone] Allergies No known active allergies Medications albuterol [...] 07/27/2024 Assessment & Plan (07/27/2024 1:58 PM SENIOR WEB ENGINEER): Impression: Patient is smoking approximately 12 cigarettes [...] 04/18/2021 Assessment & Plan (07/27/2024 1:55 PM SENIOR WEB ENGINEER): Impression: Patient has a known occlusion to [...] 02/27/2021 Assessment & Plan (07/27/2024 1:56 PM SENIOR WEB ENGINEER): Impression: Chronic stable. Plan: Continue atorvastatin Assessment [...] 07/03/2012 Assessment & Plan (07/27/2024 1:56 PM SENIOR WEB ENGINEER): Impression: Chronic and stable. Plan: Continue lisinopril, [...] Department Care Team Description 12/02/2024 Results Follow-Up [facility] Neurology [address] [place] [phone] Clarissa Kumar NP MRI Cervical Spine WO Contrast 11/30/2024 12:15 PM CDT - 11/30/2024 11:59 PM CDT Hospital Encounter [facility] MRI [address] [place] [address] Neck pain Discharge Disposition: Discharge to home or self care 10/26/2024 1:00 PM CDT Office Visit [facility] Neurology [address] [place] [phone] Clarissa Kumar NP Ischemic cerebrovascular accident (CVA) [...] 04/26/2020,12/2019 Surgical History Surgery Date Site/Laterality Comments SC UNLISTED PROCEDURE ABDOME N PERITONEUM & OMENTUM [...] ANGIOGRAPHY AND WITH OR WITHOUT LEFT VENTRICULOGRAM 11883; Surgeon: Ramiro Miguel MD; Location: [facility] CARDIAC DETONATOR ASSEMBLER; Service: Cardiovascular; Laterality: N/A; Medical History Medical [...] materials from doctor or pharmacy Never 04/03/2023 [facility] Utilities Answer Date Recorded In the past 12 months has th e [employer], gas, oil, or water [employer] threatened to shut off services in your [...] often do you attend chur ch or jain services? Never 12/05/2023 Do you belong to any clubs o r organizations such as muslim groups, unions, fraternal or athletic groups, or [...] place to sleep or slept in a [place] health care facility (including now)? No 11/29/2023 Housing Stability Vital Sign Answer Darryn e Recorded In the last 12 months, was t here a time when you were not able to pay the mortgage or rent on time? No 12/05/2023 In the past 12 months, how m any times have you moved where you were living? 1 12/05/2023 At any time in the past 12 m [facility], were you homeless or living in a [place] health care facility (including now)? No 12/05/2023 Personal Safety Answer Date Recorded Have you ever been in or are you currently in a harmful physical or emotional relationship or is someone making you feel afraid or unsafe? Denies 08/25/2024 Sex and Gender Information Value Date Recorded Sex Assigned at Not on file Legal Sex Male 4:49 AM SENIOR WEB ENGINEER Gender Identity Not on file Sexual Orientation Not on file Obstetrics History Last Filed Vital Signs Vital Sign Reading Time Taken Comments Blood Pressure 120/60 10/26/2024 12:57 PM CDT Pulse 90 10/26/2024 12:57 PM CDT Temperature 36.7 C (98 F) 08/25/2024 5:00 PM SENIOR WEB ENGINEER Respiratory Rate 24 08/25/2024 6:30 PM SENIOR WEB ENGINEER Oxygen Saturation 95% 10/26/2024 12:57 PM CDT [...] as needed Medical Devices Implanted Type Area Personal Financial Planner Device Identifier Shelf Expiration Date Model / Serial / Lot Mesh Mesh Abdomen [employer] Enroute Uber Flex 9mm .078in 40mm 57cm Delivery System Angle Tip Sr-0940-Cs - [id number] Implanted:Qty: 1 on 11/28/2023 by Mario Middleton MD at [facility] Stent Left: External Carotid Artery [employer] Inc [id number] 03/14/2026 SR-0940- CS / / [id number] Dom N/A: Neck Screws N/A: Neck Clamps N/A: Neck Par[employer] Medical Inc System Stent Peripheral Transcarotid Rapid Exchange Enroute 9x30mm Nitinol Sr-0930-Cs - [id number] Implanted:Qty: 1 on 11/28/2023 by Mario Middleton MD at [facility] Left: External Carotid Artery [employer] Inc SR-0930- CS / / [id number] Procedures Procedure Name Priority Date/Time Associated Diagnosis [...] and facet arthropathy with moderate left and qxdu-ds-bgnanlxm right neural foraminal narrowing. C3-C4: Surgical level. Spinal canal is decompressed posteriorly. Uncovertebral spurring and facet arthropathy with ocsr-zu-yccxiitv right and mild left neural foraminal narrowing. [...] patient's clinical presentation. 3. Non operative level icti-kl-lrhyuayc disc degeneration with thickened ligamentum flavum, uncovertebral spurring and facet arthropathy as above. 4. Previous cervical spine MRI is not available for comparison. THIS IS AN ELECTRONICALLY VERIFIED FINAL REPORT 12/01/2024 9:25 AM - Electronically signed by Nicolas Granados D.O. AP T: Report ID: [id number] Reading Location: [place] [address] Procedure Note Nicolas Granados, DO - 12/01/2024 [...] posterior margin well-circumscribed T2 hyperintense signal from C4-U4aqrawfx C6 could reflect myelomalacia/myelopathy. Posterior column involvementcan [...] spurringand facet arthropathy with moderate left and dqle-zk-adkseijl right neural foraminal narrowing. C3-C4: Surgical level. Spinal canal is decompressed posteriorly. Uncovertebral spurring and facet arthropathy with cmid-sh-ayvgcuds rightand mild left neural foraminal narrowing. C4-C5: [...] patient's clinical presentation. 3. Non operative level fzcl-dl-iozsgpmv disc degeneration with thickened ligamentum flavum, uncovertebral spurring and facet arthropathy as above. 4. Previous cervical spine MRI is not available for comparison. THIS IS AN ELECTRONICALLY VERIFIED FINAL REPORT 12/01/2024 9:25 AM - Electronically signed by Nicolas FERRO T: Report ID: [id number] Reading Location: [place] [address] Clarissa Dunajcik SUPERVISOR ANODIZING IMG MRI PROCEDURES Final Res ult * Basic metabolic panel (10/19/2024 1:02 PM CDT) Glucose 71 65 - 139 mg/dL Rafael Siving Egil KvalebergSantiago Muro Comment: Non-fasting reference interval BUN 15 7 - 25 mg/dL Rafael Muro Creatinine 0.93 0.70 - 1.28 mg/dL Rafael Muro eGFR 86 > OR = 60 mL/min/1.7 3m2 Rafael Siving Egil KvalebergSantiago Muro BUN/creat ratio SEE NOTE: 6 - 22 (calc) Rafael VerificoCourtney Muro Comment: Not Reported: BUN and Creatinine are within reference range. Sodium 142 135 - 146 mmol/L Rafael TerryDental KidzCourtney Muro Potassium, pl 4.6 3.5 - 5.3 mmol/L Rafael Muro Chloride 103 98 - 110 mmol/L Rafael TerryDental KidzCourtney Muro CO2 30 20 - 32 mmol/L UbiquigentCourtney Muro Calcium 9.5 8.6 - 10.3 mg/dL UbiquigentCourtney Muro Blood 10/19/2024 1:02 PM CDT 10/19/2024 1:03 PM CDT Narrative [facility] - 10/20/2024 2:29 AM CDT INSURANCE VERIFIED FASTING:NO FASTING: NO us Ziyad Pulido MD LAB BLOOD ORDERABLES Final [facility]ul t [facility] [address] [place] [address] * CT Abdomen Pelvis W WO Contrast [...] Recent guidelines by the Fleischner Society (Radiology 254805,2017) divides patient into low vs. high risk [...] immunosuppression, or patients with known primary cancer. http://pubs.rsna.org/doi/pdf/10.1148/radiol.2016918564 THIS IS AN ELECTRONICALLY VERIFIED FINAL REPORT 09/25/2022 11:55 PM - Electronically signed by Harish Azevedo M.D. AR: JADYN Report ID: [id number] Reading Location: [id number] Procedure Note Harish Azevedo MD - 09/25/2022 [...] Recent guidelines by the Fleischner Society (Radiology 409702,2017)divides patient into low vs. high risk (for [...] immunosuppression, or patients with known primary cancer. http://pubs.rsna.org/doi/pdf/10.1148/radiol.8508479737 THIS IS AN ELECTRONICALLY VERIFIED FINAL REPORT 09/25/2022 11:55 PM - Electronically signed by Harish Azevedo M.D. AR: JADYN Report ID: [id number] Reading Location: [place] [address] Neelam Onofre MD IM CT PROCEDURES Final Result from Last 3 Months or Most Recently Relevant to Health Maintenance Insurance MEDICARE [facility] MEDICARE [facility] MEDICARE IDPA MEDICARE [facility] Advance Directives For more information, please contact: [phone] Documents on File Type Date Recorded Patient Incident Analyst Expl anation ADVANCE DIRECTIVE 11/28/2023 11:42 AM Aguilar r of Web Design Instructor-Medical * Full Code (Latest Code Status on File) Date Activated Date Inactivated Comments 12/04/2023 4:37 PM 12/12/2023 5:53 PM * Full Code Date Activated Date Inactivated Comments 11/28/2023 2:41 PM 11/29/2023 9:08 PM * Full Code Date Activated Date Inactivated Comments 12/28/2021 7:56 PM 12/31/2021 6:23 PM Care Teams Braided Rug Maker Relationship Specialty Start Date End Date Neealm Onofre MD PCP - General 06/02/17 Jacky Devlin MD Referring Physician Gastroenterology 09/15/19 Ziyad Pulido MD Consulting Physician Cardiovascular Disease 11/14/23 Alex Guzman MD [address] [facility] [address] [place] [address] Surgeon Orthopedic Surgery 11/14/23 David Wilson MD [address] [facility] [address] [place] [address] [place] [address] Consulting Physician Neurology 12/12/23
--- OUTSIDE RECORDS SUMMARY | 2024-12-07 12:30 | XMS_ITS | Encounter Summary ---
Author Organization [facility] Healthcare Address [address] [place] [address] Care Team Providers Care Refractory Tile Helper Name Role Phone Neelam Onofre MD Primary Care Prov ider Jacky Devlin MD Unavailable [phone] Ziyad Pulido MD Unavailable Alex Guzman MD Unavailable [phone] David Wilson MD Unavailable [phone] Encounter Details Date Type Department Care Team (Late st Contact Info) Description 10/11/2023 Documentation [facility] OP Physical Therapy [address] [place] [address] Jennifer Alcaraz, PT Social History Tobacco [...] on file Legal Sex Male 4:49 AM DISTRIBUTED GENERATION PROJECT MANAGER Gender Identity Not on file Sexual Orientation [...] on filedocumented in this encounter Care Teams Refractory Tile Helper Relationship Specialty Start Date End Date Neelam Onofre MD PCP - General 06/02/17 Jacky Devlin MD Referring Physician Gastroenterology 09/15/19 Ziyad Pulido MD Consulting Physician Cardiovascular Disease 11/14/23 Alex Guzman MD [address] [facility] [address] [place] [address] Surgeon Orthopedic Surgery 11/14/23 David Wilson MD [address] [facility] [address] [address] [place] [address] Consulting Physician Neurology 12/12/23 documented as of this encounter
--- OUTSIDE RECORDS SUMMARY | 2024-12-07 12:30 | XMS_ITS | Encounter Summary ---
Author Organization [facility] Healthcare Address [address] [place] [address] Care Team Providers Care Curtain Worker Name Role Phone Neelam Onofre MD Primary Care Prov ider Jacky Devlin MD Unavailable [phone] Ziyad Pulido MD Unavailable Alex Guzman MD Unavailable [phone] David Wilson MD Unavailable [phone] Encounter Details Date Type Department Care Team (Late st Contact Info) Description 03/04/2024 Documentation [facility] OP Physical Therapy [facility] [address] [address] Jennifer Alcaraz, PT Social History [...] materials from doctor or pharmacy Never 04/03/2023 [facility] Utilities Answer Date Recorded In the [...] often do you attend chur ch or sabianist services? Never 12/05/2023 Do you belong to any clubs o r organizations such as hoahaoism groups, unions, fraternal or athletic groups, or [...] place to sleep or slept in a senior care (including now)? No 11/29/2023 Housing Stability Vital [...] were you homeless or living in a senior care (including now)? No 12/05/2023 Personal Safety Answer Date Recorded Have you ever been in or are you currently in a harmful physical or emotional relationship or is someone making you feel afraid or unsafe? Patient unable to answer 12/04/2023 Sex and Gender Information Value Date Recorded Sex Assigned at Not on file Legal Sex Male 4:49 AM LOW VOLTAGE ELECTRICIAN Gender Identity Not on file Sexual Orientation [...] on filedocumented in this encounter Care Teams Curtain Worker Relationship Specialty Start Date End Date Neelam Onofre MD PCP - General 06/02/17 Jacky Devlin MD Referring Physician Gastroenterology 09/15/19 Ziyad Pulido MD Consulting Physician Cardiovascular Disease 11/14/23 Alex Guzman MD [address] [facility] [address] [place] [address] Surgeon Orthopedic Surgery 11/14/23 David Wilson MD [address] [facility] [address] [address] [place] [address] Consulting Physician Neurology 12/12/23 documented as of this encounter
--- OUTSIDE RECORDS SUMMARY | 2024-12-07 12:30 | XMS_ITS | Clinical Summary ---
Author Organization [facility] Address [address] [place] [address] Care Team Providers Care Presentation Specialist Name Role Phone Hector Redding MD Primary Care Provider [phone] Richie Jennings MD Unavailable [phone] Source Comments [facility],non-owned Affiliates and Associated Physician Practices is amultiple site organization consisting of ambulatory clinics and hospital sitesin [place], [place], [place] and [place]. This disclosure is being madepursuant to the Care Everywhere program and may not contain all information available regarding this patient. Last updated 18.[facility] Allergies No known active allergies Medications * [...] 3 07/03/2012 Active vitamin D, ergocalciferol, (DRISDOL) 85705 UNITS capsule Take 1 Cap by mouth [...] on file Legal Sex Male 6:03 AM LEAD SOFTWARE QA ENGINEER Gender Identity Not on file Sexual Orientation Not on file Last Filed Vital Signs Vital Sign Reading Time Taken Comments Blood Pressure 150/88 07/23/2012 3:25 PM LEAD SOFTWARE QA ENGINEER Pulse 100 07/23/2012 3:25 PM LEAD SOFTWARE QA ENGINEER Temperature - - Respiratory Rate - - Oxygen Saturation - - Inhaled Oxygen Concentration - - Weight 67.9 kg (149 lb 9.6 oz) 07/23/2012 3:25 P M LEAD SOFTWARE QA ENGINEER Height 170.2 cm (5' 7) 07/03/2012 1:36 PM LEAD SOFTWARE QA ENGINEER Body Mass Index 23.43 07/03/2012 1:36 PM LEAD SOFTWARE QA ENGINEER Plan of Treatment Health Maintenance Due Date [...] complete this topic Insurance MEDICARE Care Teams Presentation Specialist Relationship Specialty Start Date End Date Hector Redding MD [address] [place] [address] PCP - General Internal Medicine 06/18/12 Richie Jennings MD [address] [place] [address] Rheumatology 07/22/12
--- OUTSIDE RECORDS SUMMARY | 2024-12-07 12:30 | XMS_ITS | Referral Summary ---
Author Organization [facility] Address [address] [place] [address] Care Team Providers Care Body Maker Machine Setter Name Role Phone Neelam Onofre MD Primary Care Prov ider Jacky Devlin MD Unavailable [phone] Ziyad Pulido MD Unavailable Alex Guzman MD Unavailable [phone] David Wilson MD Unavailable [phone] Encounters Date Type Department Care Team Description 12/02/2024 Results Follow-Up [facility] Neurology [address] [place] [address] [place] [phone] Clarissa Kumar NP MRI Cervical Spine WO Contrast 11/30/2024 12:15 PM CDT - 11/30/2024 11:59 PM CDT Hospital Encounter [facility] MRI [address] [place], [place] [id number] Neck pain Discharge Disposition: Discharge to home or self care 10/26/2024 1:00 PM CDT Office Visit [facility] Neurology [address] [place] [address] [place] [phone] Clarissa Kumar NP Ischemic cerebrovascular accident (CVA) [...] 07/27/2024 Assessment & Plan (07/27/2024 1:58 PM FELT STRIP FINISHER): Impression: Patient is smoking approximately 12 cigarettes [...] encouraged him to quit smoking. Epistaxis 12/28/2021 URTH (acute kidney injury) 12/28/2021 Sepsis 12/28/2021 COPD exacerbation 12/28/2021 Dementia without behavioral disturbance 12/26/19 22 ICAO (internal carotid artery occlusion), right 07/24/2021 Carotid stenosis, bilateral 04/18/2021 Assessment & Plan (07/27/2024 1:55 PM FELT STRIP FINISHER): Impression: Patient has a known occlusion to [...] 02/27/2021 Assessment & Plan (07/27/2024 1:56 PM FELT STRIP FINISHER): Impression: Chronic stable. Plan: Continue atorvastatin Assessment [...] 07/03/2012 Assessment & Plan (07/27/2024 1:56 PM FELT STRIP FINISHER): Impression: Chronic and stable. Plan: Continue lisinopril, [...] materials from doctor or pharmacy Never 04/03/2023 [facility] Utilities Answer Date Recorded In the past 12 months has th e [employer], gas, oil, or water company threatened to [...] often do you attend chur ch or alevism services? Never 12/05/2023 Do you belong to any clubs o r organizations such as buddhist groups, unions, fraternal or athletic groups, or [...] place to sleep or slept in a skilled nursing (including now)? No 11/29/2023 Housing Stability Vital Sign Answer Darryn e Recorded In the last 12 months, was t here a time when you were not able to pay the mortgage or rent on time? No 12/05/2023 In the past 12 months, how m any times have you moved where you were living? 1 12/05/2023 At any time in the past 12 m [facility], were you homeless or living in a skilled nursing (including now)? No 12/05/2023 Personal Safety Answer Date Recorded Have you ever been in or are you currently in a harmful physical or emotional relationship or is someone making you feel afraid or unsafe? Denies 08/25/2024 Sex and Gender Information Value Date Recorded Sex Assigned at Not on file Legal Sex Male 4:49 AM FELT STRIP FINISHER Gender Identity Not on file Sexual Orientation Not on file Last Filed Vital Signs Vital Sign Reading Time Taken Comments Blood Pressure 120/60 10/26/2024 12:57 PM CDT Pulse 90 10/26/2024 12:57 PM CDT Temperature 36.7 C (98 F) 08/25/2024 5:00 PM FELT STRIP FINISHER Respiratory Rate 24 08/25/2024 6:30 PM FELT STRIP FINISHER Oxygen Saturation 95% 10/26/2024 12:57 PM CDT [...] as needed Medical Devices Implanted Type Area Chinchilla Farmer Device Identifier Shelf Expiration Date Model / Serial / Lot Mesh Mesh Abdomen [employer] Enroute Uber Flex 9mm .078in 40mm 57cm Delivery System Angle Tip Sr-0940-Cs - [id number] Implanted:Qty: 1 on 11/28/2023 by Mario Middleton MD at [facility] Stent Left: External Carotid Artery [employer] [id number] 03/14/2026 SR-0940- CS / / [id number] Dom N/A: Neck Screws N/A: Neck Clamps N/A: Neck Mimix [employer] System Stent Peripheral Transcarotid Rapid Exchange Enroute 9x30mm Nitinol Sr-0930-Cs - [id number] Implanted:Qty: 1 on 11/28/2023 by Mario Middleton MD at [facility] Left: External Carotid Artery [employer] SR-0930- CS / / [id number] Procedures Procedure Name Priority Date/Time Associated Diagnosis [...] and facet arthropathy with moderate left and qrut-kl-imyavgdy right neural foraminal narrowing. C3-C4: Surgical level. Spinal canal is decompressed posteriorly. Uncovertebral spurring and facet arthropathy with jbvk-ip-lkqxboxp right and mild left neural foraminal narrowing. [...] patient's clinical presentation. 3. Non operative level hbvo-vy-tkjzsqgm disc degeneration with thickened ligamentum flavum, uncovertebral spurring and facet arthropathy as above. 4. Previous cervical spine MRI is not available for comparison. THIS IS AN ELECTRONICALLY VERIFIED FINAL REPORT 12/01/2024 9:25 AM - Electronically signed by Nicolas Granados D.O. AP T: Report ID: [id number] Reading Location: [place] [address] Procedure Note Nicolas Granados, DO - 12/01/2024 [...] posterior margin well-circumscribed T2 hyperintense signal from C4-V7hpvxhgj C6 could reflect myelomalacia/myelopathy. Posterior column involvementcan [...] spurringand facet arthropathy with moderate left and owkb-yr-vxyynxpu right neural foraminal narrowing. C3-C4: Surgical level. Spinal canal is decompressed posteriorly. Uncovertebral spurring and facet arthropathy with zcxn-au-olstodha rightand mild left neural foraminal narrowing. C4-C5: [...] patient's clinical presentation. 3. Non operative level olbu-oy-tgqyysdf disc degeneration with thickened ligamentum flavum, uncovertebral spurring and facet arthropathy as above. 4. Previous cervical spine MRI is not available for comparison. THIS IS AN ELECTRONICALLY VERIFIED FINAL REPORT 12/01/2024 9:25 AM - Electronically signed by Nicolas FERRO T: Report ID: [id number] Reading Location: [place] [address] Clarissa Dunajcik ROLLER VARNISHER IMG MRI PROCEDURES Final Res ult * Basic metabolic panel (10/19/2024 1:02 PM CDT) Glucose 71 65 - 139 mg/dL Rafael Tuscany GardensSantiago Muro Comment: Non-fasting reference interval BUN 15 7 - 25 mg/dL Rafael Muro Creatinine 0.93 0.70 - 1.28 mg/dL Rafael Muro eGFR 86 > OR = 60 mL/min/1.7 3m2 Rafael Tuscany GardensSantiago Muro BUN/creat ratio SEE NOTE: 6 (calc) Rafael SynkerCourtney Muro Comment: Not Reported: BUN and Creatinine are within reference range. Sodium 142 135 - 146 mmol/L Rafael Muro Potassium, pl 4.6 3.5 - 5.3 mmol/L Rafael Muro Chloride 103 98 - 110 mmol/L Rafael TerryNephoScale, Inc.Courtney Muro CO2 30 20 - 32 mmol/L Spruce MediaCourtney Muro Calcium 9.5 8.6 - 10.3 mg/dL Travel[employer] MaraNepho[employer], [employer].Courtney Muro Blood 10/19/2024 1:02 PM CDT 10/19/2024 1:03 PM CDT Narrative [facility] - 10/20/2024 2:29 AM CDT INSURANCE VERIFIED FASTING:NO FASTING: NO us Ziyad Pulido MD LAB BLOOD ORDERABLES Final [facility]ul [facility] [address] [place] [address] * CT Abdomen Pelvis W WO Contrast [...] Recent guidelines by the Fleischner Society (Radiology 480534,2017) divides patient into low vs. high risk [...] immunosuppression, or patients with known primary cancer. http://pubs.rsna.org/doi/pdf/10.1148/radiol.6200380260 THIS IS AN ELECTRONICALLY VERIFIED FINAL REPORT 09/25/2022 11:55 PM - Electronically signed by Harish Azevedo M.D. AR: JADYN Report ID: [id number] Reading Location: [id number] Procedure Note Harish Azevedo MD - 09/25/2022 [...] Recent guidelines by the Fleischner Society (Radiology 089758,2017)divides patient into low vs. high risk (for [...] immunosuppression, or patients with known primary cancer. http://pubs.rsna.org/doi/pdf/10.1148/radiol.0054661623 THIS IS AN ELECTRONICALLY VERIFIED FINAL REPORT 09/25/2022 11:55 PM - Electronically signed by Harish Azevedo M.D. AR: JADYN Report ID: [id number] Reading Location: [place] [address] Neelam Beverly Onofre MD IM CT PROCEDURES Final Result from Last 3 Months or Most Recently Relevant to Health Maintenance Insurance MEDICARE [facility] MEDICARE [facility] MEDICARE [facility] MEDICARE [facility] Advance Directives For more information, please contact: [phone] Documents on File Type Date Recorded Patient Overnight Houseperson Expl anation ADVANCE DIRECTIVE 11/28/2023 11:42 AM Aguilar r of Corporate Risk Analyst-Medical * Full Code (Latest Code Status on File) Date Activated Date Inactivated Comments 12/04/2023 4:37 PM 12/12/2023 5:53 PM * Full Code Date Activated Date Inactivated Comments 11/28/2023 2:41 PM 11/29/2023 9:08 PM * Full Code Date Activated Date Inactivated Comments 12/28/2021 7:56 PM 12/31/2021 6:23 PM Care Teams Body Maker Machine Setter Relationship Specialty Start Date End Date Neelam Onofre MD PCP - General 06/02/17 Jacky Devlin MD Referring Physician Gastroenterology 09/15/19 Ziyad Pulido MD Consulting Physician Cardiovascular Disease 11/14/23 Alex Guzman MD [address] [facility] [address] [place] [address] Surgeon Orthopedic Surgery 11/14/23 David Wilson MD [address] [facility] [address] [place] [place] [address] Consulting Physician Neurology 12/12/23
--- OUTSIDE RECORDS SUMMARY | 2024-12-07 12:31 | XMS_ITS | Encounter Summary ---
Author Organization [facility] Address [address] [place] [address] Phone Care Team Providers Care Choral Director Name Role Phone Neelam Onofre MD Primary Care Prov ider Jacky Devlin MD Unavailable [phone] Shaw Yancey DPT Unavailable [phone] Ziyad Pulido MD Unavailable Alex Guzman MD Unavailable [phone] David Wilson MD Unavailable [phone] Reason for Visit * Reason Onset Date Comments Test Results 01/05/2020 Encounter Details Date Type Department Care Team (Late st Contact Info) Description 01/05/2020 Telephone [facility] Pediatric Genetics [facility] 2nd [place] [address] [place] [id number] Korin Banks Test Results Social History Tobacco Use Types Packs/Day Years Used Date Smoking Tobacco: Never Assessed Sex and Gender Information Value Date Recorded Sex Assigned at Not on file Legal Sex Male 4:49 AM SEWER Gender Identity Not on file Sexual Orientation [...] CDT COVID19 08/02/2020 08/02/2020 08/16/2020 3:07 AM SEWER COVID: Recovered Comment:Added based on recent COVID infection. 08/16/2020 09/08/2020 12/14/2020 3:05 AM C DT COVID: Suspected 12/28/2021 12/28/2021 12/28/2021 1:29 PM CDT documented as of this encounter Care Teams Choral Director Relationship Specialty Start Date End Date Neelam Onofre MD PCP - General 06/02/17 Jacky Devlin MD Referring Physician Gastroenterology 09/15/19 Shaw Yancey, DPT [id number] [address] Physical Therapist Physical Therapy 03/03/21 11/12/21 Ziyad Pulido MD [id number] [address] Consulting Physician Cardiovascular Disease 11/14/23 Alex Guzman MD [address] [place] [address] [address]6B[address] [place] [address] Surgeon Orthopedic Surgery 11/14/23 David Wilson MD [address] [place] [id number] Consulting Physician Neurology 12/12/23 documented as of this encounter
--- OUTSIDE RECORDS SUMMARY | 2024-12-07 12:31 | XMS_ITS | Encounter Summary ---
Author Organization [facility] Address [address] [place] [address] Care Team Providers Care Condominium Property Manager Name Role Phone Neelam Onofre MD Primary Care Prov ider Jacky Devlin MD Unavailable [phone] Ziyad Pulido MD Unavailable Alex Guzman MD Unavailable [phone] David Wilson MD Unavailable [phone] Encounter Details Date Type Department Care Team (Late st Contact Info) Description 12/02/2024 Results Follow-Up [facility] Neurology [address] [facility] [address] [place] [id number] Clarissa Kumar, RASHMI [address] [address] MRI Cervical Spine WO Contrast Social History [...] materials from doctor or pharmacy Never 04/03/2023 [facility] Utilities Answer Date Recorded In the [...] often do you attend chur ch or scientology services? Never 12/05/2023 Do you belong to any clubs o r organizations such as sikh groups, unions, fraternal or athletic groups, or [...] place to sleep or slept in a care home (including now)? No 11/29/2023 Housing Stability Vital Sign Answer Darryn e Recorded In the last 12 months, was t here a time when you were not able to pay the mortgage or rent on time? No 12/05/2023 In the past 12 months, how m any times have you moved where you were living? 1 12/05/2023 At any time in the past 12 m [facility], were you homeless or living in a care home (including now)? No 12/05/2023 Personal Safety Answer Date Recorded Have you ever been in or are you currently in a harmful physical or emotional relationship or is someone making you feel afraid or unsafe? 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
--- OUTSIDE RECORDS SUMMARY | 2024-12-07 12:31 | XMS_ITS | Encounter Summary ---
Author Organization [facility] Address [address] [place] [address] Care Team Providers Care Client Finance Analyst Name Role Phone Neelam Onofre MD Primary Care Prov ider Jacky Devlin MD Unavailable [phone] Ziyad Pulido MD Unavailable Alex Guzman MD Unavailable [phone] David Wilson MD Unavailable [phone] Reason for Visit * Reason Onset Date [...] (Late st Contact Info) Description 06/10/2023 Documentation [facility] OP Physical Therapy [address] [address] Vandana Slade, PT No Show (Due to his [...] on file Legal Sex Male 4:49 AM LAW ENFORCEMENT DIRECTOR Gender Identity Not on file Sexual Orientation [...] on filedocumented in this encounter Care Teams Client Finance Analyst Relationship Specialty Start Date End Date Neelam Onofre MD PCP - General 06/02/17 Jacky Devlin MD Referring Physician Gastroenterology 09/15/19 Ziyad Pulido MD Consulting Physician Cardiovascular Disease 11/14/23 Alex Guzman MD [address] [facility] [place] [address] Surgeon Orthopedic Surgery 11/14/23 David Wilson MD [facility] [address] [place] [address] Consulting Physician Neurology 12/12/23 documented as of this encounter
--- NOTE | 2024-12-07 13:29 | ED.GENADULT ---
HPI - General Adult General Chief complaint: Skin/Abscess/Foreign Body Stated complaint: boil on chest Time Seen by Provider: 12/07/24 12:19 History of Present Illness HPI narrative: 74-year-old female present to the emergency department for evaluation for concern for recurrent abscess to his left breast. Approximately 1 year ago patient did have an abscess to his left breast that required incision and drainage. Patient states about 2 days ago patient had recurrent tenderness of the left breast with mild erythema. Review of Systems Review of Systems: All systems reviewed & are unremarkable except as noted in HPI and below PMFSH Social History Social History Smoking packs per day: 0.6 Smoking cigarettes per day: 12.0 Years smoked: 60 Smoking pack-years: 36.00 Smoking status: Current every day smoker Tobacco type: cigarettes Second hand tobacco smoke exposure: No Exam Narrative: APPEARANCE: Well appearing, no pain, no distress, well-nourished. HEAD: normocephalic, atraumatic. EYES: PERRLA/EOMI, conjunctivae clear. NOSE: Normal no drainage EARS:TMS clear with good light reflex. THROAT: Pharynx clear, no exudate. NECK: Supple. No adenopathy, no masses. RESPIRATORY: Airway patent, respirations nonlabored. Clear to auscultation bilaterally, no rales, rhonchi, wheezing. CARDIOVASCULAR: Regular rate and rhythm without murmurs rubs or gallops. ABDOMINAL: Soft, nontender, nondistended, normal bowel sounds MUSCULOSKELETAL: Moves all extremities. Strength/ROM intact, No edema, No calf tenderness. NEURO: Alert. Cranial nerves II through XII intact. Good gait. Good coordination SKIN: Erythema without fluctuance or induration surrounding left nipple. Bedside ultrasound showed no abscess amenable to drainage. Course Vital Signs Vital signs: Vital Signs Temperature 97.4 F L 12/07/24 11:09 Pulse Rate 92 12/07/24 11:09 Respiratory Rate 16 12/07/24 11:09 Blood Pressure 125/56 L 12/07/24 11:09 Pulse Oximetry 96 12/07/24 11:09 Oxygen Delivery Room Air 12/07/24 11:09 Temperature 97.4 F L 12/07/24 11:09 Pulse Rate 92 12/07/24 11:09 Respiratory Rate 16 12/07/24 11:09 Blood Pressure 125/56 L 12/07/24 11:09 Pulse Oximetry 96 12/07/24 11:09 Oxygen Delivery Room Air 12/07/24 11:09 Medical Decision Making MDM Narrative Medical decision making narrative: [age] old male presents to the emergency department for evaluation for left breast tenderness. Exam is consistent with a cellulitis. No evidence of abscess amenable to drainage. Patient will be started on clindamycin. Patient was encouraged of close follow-up with his primary care physician. Patient also does have multiple areas of eczema for which he uses the triamcinolone cream. This will be refilled. Patient was encouraged to have follow-up with dermatology as well. Differential Diagnosis Differential Diagnosis: Breast cancer, breast mass, tumor, abscess, cellulitis Vital Signs Vital Signs: Vital Signs Temperature 97.4 F L 12/07/24 11:09 Pulse Rate 92 12/07/24 11:09 Respiratory Rate 16 12/07/24 11:09 Blood Pressure 125/56 L 12/07/24 11:09 Pulse Oximetry 96 12/07/24 11:09 Oxygen Delivery Room Air 12/07/24 11:09 Temperature 97.4 F L 12/07/24 11:09 Pulse Rate 92 12/07/24 11:09 Respiratory Rate 16 12/07/24 11:09 Blood Pressure 125/56 L 12/07/24 11:09 Pulse Oximetry 96 12/07/24 11:09 Oxygen Delivery Room Air 12/07/24 11:09 Discharge Plan Discharge Clinical Impression: Cellulitis, Eczema Patient Disposition: Home Condition: Stable Instructions: Antibiotic Form, Cellulitis (ED), Eczema (ED) Additional Instructions: Antibiotic as directed until completed. Have close follow-up with your primary care physician to ensure that the cellulitis resolves. It is possible that the cellulitis may develop into an abscess and may require drainage in the future.. I do recommend follow-up with dermatology as well Patient Language: Spanish Prescriptions: New clindamycin HCl [Cleocin HCl] 300 mg capsule 300 mg PO Q6H 7 Days Qty: 28 0RF triamcinolone acetonide 0.1 % lotion 1 applic topical DAILY Qty: 60 0RF Follow-up/Referrals: UNKNOWN,DOCTOR [Primary Care Provider] -
== END 2024-12-07 13:45 | disposition home or self-care (01) ==
PROVIDERS: Emergency Provider Emergency Medicine
DX: N61.0 Mastitis without abscess (principal); L30.9 Dermatitis, unspecified; F17.210 Nicotine dependence, cigarettes, uncomplicated
CPT/HCPCS: 99283

== ENCOUNTER 2024-12-31 10:00 | Outpatient (RCR) | payer MEDICARE, MEDICAID, SELFPAY ==
[2024-10-13 15:50] VITALS: BP 136/90; PULSE 90; RESP 18; O2SAT 97
[2024-10-13 16:15] VITALS: PULSE 90
== END 2025-01-20 10:14 | disposition home or self-care (01) ==
LOC: ANHCPREHAB 10:00
PROVIDERS: Visit Provider Internal Medicine
DX: I20.89 Other forms of angina pectoris (principal)
CPT/HCPCS: 93798

== ENCOUNTER 2025-01-07 17:58 | Inpatient (IN) | payer MEDICARE, MEDICAID, SELFPAY ==
[2025-01-07] VITALS (11 sets, daily range): BP systolic 154–167; BP diastolic 76–100; PULSE 85–93; RESP 18–34; TEMP 36.6; O2SAT 91–97
--- NOTE | ~2025-01-07 | XR_ITS ---
CHEST RADIOGRAPH CLINICAL HISTORY: SOB . COMPARISON: Reference is made to a CT examination of the chest performed 10/19/2024 which demonstrated bronchiectasis and emphysematous disease. TECHNIQUE: Single portable view of the chest. FINDINGS Calcified lymph nodes within the mediastinum suggesting prior granulomatous disease. The remainder of the cardiomediastinal silhouette is otherwise unremarkable. The lungs are clear. IMPRESSION: No focal infiltrate or effusion. Reviewed, dictated and finalized at location A.
--- NOTE | ~2025-01-07 | CT_ITS ---
EXAMINATION: CTA chest PE protocol DATE: 01/07/2025 21:18 CDT INDICATION: Hypoxia TECHNIQUE: Computed tomographic angiography (CTA) of the chest was performed with 100 mL Omnipaque-35 0 intravenous contrast. The dose-length product was 283.57 mGy-cm. Maximum intensity projection 3D-re constructions of the aorta and other arteries were constructed by the technologist on a separate work station. COMPARISON: reference is made to a noncontrast enhanced evaluation of the chest dated 10/19/2024 FINDINGS/OBSERVATIONS: PULMONARY ARTERIES: No filling defect is identified within the main or proximal pulmonary artery. The main pulmonary artery is not enlarged. THORACIC AORTA: No aneurysmal dilatation or dissection is present. The great vessels are intact LUNGS: Redemonstration of a soft tissue attenuation solid nodule within the left lower lobe (axial se tala, image 96) measuring 12.9 x 10.5 mm (compared with 10.6 x 7.7 mm on the previous study). Redemonstration of an additional solid nodule within the right lower lobe (axial series, image 117) m easuring 9.6 x 8.5 mm (compared with 8.0 x 6.8 mm on the previous study). Remainder of the abnormalities within the bilateral lung echevarria likely represent scar formation, rath er than discrete nodules. The lungs are otherwise clear. MEDIASTINUM: Calcified lymph nodes within the mediastinum suggesting prior granulomatous disease. No morphologically suspicious or pathologically enlarged lymph nodes are identified within the mediastin um or bilateral axilla. BONES OF THE CHEST: No acute fracture. No significant degenerative disease. No lytic or blastic lesions. HEART: The heart is of normal size, without pericardial effusion. IMPRESSION: No pulmonary embolus. No thoracic aortic dissection. Interval enlargement of 2 separate nodules when compared with previous examination performed 10/19/2024 for which follow-up as per Fleischner guidelines is recommended (which dictates PET/CT, tissue sampl ing, or 3 month follow-up CT). Reviewed, dictated and finalized at location A. IMPRESSION: No pulmonary embolus. No thoracic aortic dissection. Interval enlargement of 2 separate nodules when compared with previous examinat ion performed 10/19/2024 for which follow-up as per Fleischner guidelines is debi mmended (which dictates PET/CT, tissue sampling, or 3 month follow-up CT).
--- NOTE | 2025-01-07 18:59 | ECG_ITS ---
Test Date: 2025-01-07 19:22:14 Measurements Intervals Wilson Rate: 85 P: 87 VA: 183 QRS: 269 QRSD: 77 T: 75 QT: 343 QTc: 410 Interpretive Statements SINUS RHYTHM WITH OCCASIONAL SUPRAVENTRICULAR PREMATURE COMPLEXES POSSIBLE RIGHT VENTRICULAR CONDUCTION DELAY CONSIDER ANTERIOR INFARCT, AGE INDETERMINATE INFERIOR INFARCT, AGE INDETERMINATE BASELINE ARTIFACT- I, II, III, AVR, AVL, AVF, V1-V6 ABNORMAL ECG No previous ECG available for comparison Electronically Signed On 01-07-2025 20:39:56 CDT by Brandon Andres D.O.
--- NOTE | 2025-01-07 19:37 | ED_ITS ---
HPI - General Adult General Chief complaint: Shortness of Breath/Dyspnea Stated complaint: shortness of breath Time Seen by Provider: 01/07/25 18:54 History of Present Illness HPI narrative: 74-year-old male history of COPD presented to the emergency department for evaluation for worsening shortness of breath has been ongoing for the last month. Patient does have history of COPD and does continue to smoke approximately 1 pack per day. Patient also did have follow-up with Cardiology and did a trial of Lasix and had approximately 12 lb of weight loss. Patient had follow-up with his primary care physician today was found to have a walking pulse ox of 79% on room air. Patient does not have oxygen at home. Related Data Allergies Allergy/AdvReac Type Severity Reaction Status Date / Time No Known Allergies Allergy Verified 01/07/25 18:03 Review of Systems 2 Review of Systems: All systems reviewed & are unremarkable except as noted in HPI and below PMFSH Social History Social History Smoking packs per day: 0.6 Smoking cigarettes per day: 12.0 Years smoked: 60 Smoking pack-years: 36.00 Smoking status: Current every day smoker Tobacco type: cigarettes Second hand tobacco smoke exposure: No Exam 2 Narrative: APPEARANCE: Increased work of breathing HEAD: normocephalic, atraumatic. EYES: PERRLA/EOMI, conjunctivae clear. NOSE: Normal no drainage EARS:TMS clear with good light reflex. THROAT: Pharynx clear, no exudate. NECK: Supple. No adenopathy, no masses. RESPIRATORY: Small amount of expiratory wheeze prior to breathing treatment CARDIOVASCULAR: Regular rate and rhythm without murmurs rubs or gallops. ABDOMINAL: Soft, nontender, nondistended, normal bowel sounds MUSCULOSKELETAL: Moves all extremities. Strength/ROM intact, No edema, No calf tenderness. NEURO: Alert. Cranial nerves II through XII intact. Good gait. Good coordination SKIN: Warm, dry. Normal Color Course Vital Signs Vital signs: Vital Signs Temperature 97.8 F 01/07/25 17:58 Pulse Rate 90 01/07/25 17:58 Respiratory Rate 18 01/07/25 17:58 Blood Pressure 154/76 H 01/07/25 17:58 Pulse Oximetry 91 01/07/25 17:58 Oxygen Delivery Room Air 01/07/25 17:58 Temperature 97.8 F 01/07/25 17:58 Pulse Rate 86 01/07/25 23:40 Respiratory Rate 18 01/07/25 23:40 Blood Pressure 160/86 H 01/07/25 23:40 Pulse Oximetry 94 01/07/25 23:40 Oxygen Delivery Room Air 01/07/25 17:58 Medical Decision Making MDM Narrative Medical decision making narrative: 74-year-old male presents emergency department for evaluation for worsening exertional shortness of breath with hypoxia noted at the outpatient evaluation today. Patient is currently afebrile with no leukocytosis hemoglobin of 16.6. INR is 1.0. No acute abnormalities seen on the patient's CMP with a pro BNP of 188. Patient was negative for influenza RSV and for COVID. Chest x-ray showed no acute focal infiltrate or effusion and CTA chest showed no evidence of pulmonary embolism. Patient did have some minor expiratory wheeze and no change in symptoms with nebulized albuterol. Patient was also treated with 125 mg of IV Solu-Medrol. Patient is a smoker and will be admitted for a suspected COPD exacerbation. Differential Diagnosis Differential Diagnosis: CHF, COPD, pneumonia, COVID, RSV, influenza Vital Signs Vital Signs: Vital Signs Temperature 97.8 F 01/07/25 17:58 Pulse Rate 90 01/07/25 17:58 Respiratory Rate 18 01/07/25 17:58 Blood Pressure 154/76 H 01/07/25 17:58 Pulse Oximetry 91 01/07/25 17:58 Oxygen Delivery Room Air 01/07/25 17:58 Temperature 97.8 F 01/07/25 17:58 Pulse Rate 86 01/07/25 23:40 Respiratory Rate 18 01/07/25 23:40 Blood Pressure 160/86 H 01/07/25 23:40 Pulse Oximetry 94 01/07/25 23:40 Oxygen Delivery Room Air 01/07/25 17:58 Lab Data Lab results reviewed: Yes I reviewed the patient's lab results. 01/07/25 19:37 01/07/25 19:37 Labs: Lab Results 01/07/25 Range/Units 19:37 WBC 6.2 (4.5-10.0) K/mm3 RBC 5.84 (4.6-6.20) M/mm3 Hgb 16.6 (14.0-18.0) g/dL Hct 53.2 H (42.0-52.0) % MCV 91.1 (80-100) fl MCH 28.4 (26-34) pg MCHC 31.2 L (32-36) g/dl RDW 13.2 (11.5-14.5) % Plt Count 236 (150-375) k/mm3 MPV 10.8 H (7.4-10.4) fl Immature Gran % (Auto) 0.6 H (0-0.5) % Neut % (Auto) 57.4 (45.5-73.1) % Lymph % (Auto) 27.5 (18.3-44.2) % [place] % (Auto) 10.2 H (2.6-8.5) % Eos % (Auto) 3.2 (0-4.4) % Baso % (Auto) 1.1 (0.2-1.2) % Lymph # (Auto) 1.70 (0.9-3.2) K/mm3 [place] # (Auto) 0.6 (0.1-0.6) K/mm3 Eos # (Auto) 0.2 (0-0.3) K/mm3 Baso # (Auto) 0.1 (0.0-0.1) K/mm3 Abs Immat Gran (auto) 0.04 H (0.00-0.031) K/mm3 Absolute Neuts (auto) 3.6 (1.3-6.7) K/mm3 Absolute Nucleated RBC 0.000 (0.0-0.012) K/mm3 Nucleated RBC % 0.0 (0.0-0.2) % PT 13.6 (11.1-14.7) Seconds INR 1.0 APTT 30.7 (22.3-36.8) Seconds Sodium 140 (137-145) mmol/L Potassium 4.1 (3.4-5.0) mmol/L Chloride 103 (98-107) mmol/L Carbon Dioxide 27 (22-30) mmol/L Anion Gap 10 (4-12) mmol/L BUN 11 (9-20) mg/dL Creatinine 0.74 (0.7-1.3) mg/dL Estim Creat Clear Calc Not Reportable Estimated GFR > 60 (59 - ) Glucose 86 (65-110) mg/dL Calcium 9.6 (8.4-10.2) mg/dL Total Bilirubin 0.4 (0.2-1.3) mg/dL AST 28 (17-59) U/L ALT 19 (6-50) U/L Alkaline Phosphatase 85 (38-126) U/L NT-Pro-B Natriuret Pep 188 H (19.9-100) pg/mL Total Protein 7.5 (6.3-8.2) g/dL Albumin 4.1 (3.5-5.1) g/dL Influenza A (RT-PCR) Negative (Negative) Influenza B (RT-PCR) Negative (Negative) RSV (RT-PCR) Negative (Negative) SARS-CoV-2 RNA (RT-PCR) Negative (Negative) Imaging Data Radiologist's impression: Impressions Chest X-Ray 01/07/25 19:41 IMPRESSION: No focal infiltrate or effusion. Chest CTA 01/07/25 21:18 IMPRESSION: No pulmonary embolus. No thoracic aortic dissection. Interval enlargement of 2 separate nodules when compared with previous examination performed 10/19/2024 for which follow-up as per Fleischner guidelines is recommended (which dictates PET/CT, tissue sampling, or 3 month follow-up CT). ECG Data EKG #1: EKG Interpretation: normal rate, sinus rhythm, no ectopy, non-specific ST changes, normal QRS and right axis Discharge Plan Discharge Clinical Impression: COPD exacerbation, Hypoxia Patient Disposition: Still a Patient Condition: Stable
--- NOTE | 2025-01-07 19:38 | PC.NURSE ---
IV not established after 3 attempts with this RN-asking for additional staff to attempt
[2025-01-07 19:42] LABS: Basophils Absolute Auto 0.1 K/mm3 (0.0-0.1); Basophils Percent Auto 1.1 % (0.2-1.2); Eosinophils Absolute Auto 0.2 K/mm3 (0-0.3); Eosinophils Percent Auto 3.2 % (0-4.4); Hematocrit 53.2 % (42.0-52.0); Hemoglobin 16.6 g/dL (14.0-18.0); Immature Granulocyte Absolute 0.04 K/mm3 (0.00-0.031); Immature Granulocyte Percent A 0.6 % (0-0.5); Lymphocytes Percent Auto 27.5 % (18.3-44.2); Mean Corpuscular HGB Conc 31.2 g/dl (32-36); Mean Corpuscular Hemoglobin 28.4 pg (26-34); Mean Corpuscular Volume 91.1 fl (80-100); Mean Platelet Volume 10.8 fl (7.4-10.4); Monocytes Absolute Auto 0.6 K/mm3 (0.1-0.6); Monocytes Percent Auto 10.2 % (2.6-8.5); Neutrophils Absolute Auto 3.6 K/mm3 (1.3-6.7); Neutrophils Percent Auto 57.4 % (45.5-73.1); Platelet Count Result 236 k/mm3 (150-375); Red Blood Count 5.84 M/mm3 (4.6-6.20); Red Cell Distribution Width 13.2 % (11.5-14.5); White Blood Count 6.2 K/mm3 (4.5-10.0)
[2025-01-07 19:53] LABS: Alanine Aminotransferase 19 U/L (6-50); Albumin Level 4.1 g/dL (3.5-5.1); Alkaline Phosphatase 85 U/L (38-126); Anion Gap 10 mmol/L (4-12); Aspartate Amino Transferase 28 U/L (17-59); Bilirubin,Total 0.4 mg/dL (0.2-1.3); Blood Urea Nitrogen 11 mg/dL (9-20); Calcium 9.6 mg/dL (8.4-10.2); Carbon Dioxide 27 mmol/L (22-30); Chloride 103 mmol/L (98-107); Estimated Glomerular Filt Rate > 60; Glucose 86 mg/dL (65-110); Potassium 4.1 mmol/L (3.4-5.0); Sodium 140 mmol/L (137-145); Total Protein 7.5 g/dL (6.3-8.2)
[2025-01-07 19:54] LABS: Partial Thromboplastin Time 30.7 Seconds (22.3-36.8); Prothrombin Time 13.6 Seconds (11.1-14.7)
[2025-01-07] MEDS: ALBUTEROL SULFATE NEB 2.5 MG/3 ML INH 5 MG INHALATION (19:54)
[2025-01-07 20:02] LABS: NT Pro B Type Natriuretic Pept 188 pg/mL (19.9-100)
[2025-01-07 20:19] LABS: Influenza A QL RT-PCR Negative (Negative); Influenza B QL RT-PCR Negative (Negative); RSV RNA, RT-PCR. Negative (Negative); SARS-CoV-2 RNA PCR Negative (Negative)
[2025-01-07] MEDS: methylPREDNISolone SOD SUCC 125 MG VIAL IV PUSH (21:38)
--- NOTE | 2025-01-07 23:30 | PM.IMHP ---
H&P: HPI History of Present Illness Date/Time: 01/07/25 23:15 Chief Complaint: Shortness of breath. Narrative: This is a very pleasant 74-year-old male smoker with history of chronic obstructive pulmonary disease, coronary artery disease, heart failure with preserved ejection fraction, carotid artery disease status post right carotid endarterectomy, hypertension, seizures, and rheumatoid arthritis who presented to the emergency department via private vehicle with complaints of shortness of breath. Shortness of breath has been an ongoing problem for him for months if not longer. He was referred for cardiac rehab in October and he has reportedly been doing pretty well however the note from nursing staff on December 31 stated that he was complaining of shortness of breath on arrival and that his SpO2 was 90% at that time with a respiratory rate in the upper 20s. He seemed to improve once a encouraged him to slow down his breathing and he was able to do all of his exercise and seemed to tolerate that well. Subjectively he continues to feel short of breath and daughter reports that he frequently has pursed lip breathing. He had an appointment with his doctor today and the patient's SpO2 dropped to 79% with ambulation he was referred to the ED. Daughter reports that they saw his mortgage branch manager pain within the last week and they did not feel that the patient shortness of breath was related to his heart. In fact he had been started on furosemide about a month ago and he has lost 20 lb since starting that. At his visit on Saturday he was told to hold his furosemide and empagliflozin and his carvedilol dose was decreased by half, presumably due to lower blood pressures. In any event, the patient does have rescue inhalers at home which he will use on occasion without much benefit. He denies syncope, near syncope, chest and pleuritic pain, palpitations, orthopnea, paroxysmal nocturnal dyspnea, lower extremity edema, calf pain, cough, sore throat, sinus congestion, nausea, and vomiting. In the ED: He was afebrile on arrival with blood pressure 167/81, pulse 86, respiratory rate 34, SpO2 97% on room air. Labs were pretty unremarkable. ProBNP was 188. He was negative for influenza, RSV, and COVID. Chest CTA was negative for PE but did show interval enlargement of 2 separate nodules compared to prior exam in 10/19/2024. He was given methylprednisolone 125 mg IV and albuterol nebulizer treatment without much subjective improvement and he is being admitted in this setting. Review of Systems Review of Systems: 12 systems were reviewed and are negative except for as per HPI. [facility] Past Medical History Medical History (Updated 01/08/25 @ 02:40 by Kiersten Maza PA-C) Benign prostatic hyperplasia Rheumatoid arthritis Chronic obstructive pulmonary disease Heart failure with preserved ejection fraction Carotid artery stenosis 100% occlusion left carotid artery, status post right CEA Coronary artery disease Seizure Dementia Cerebrovascular accident Surgical History Surgical History (Updated 01/08/25 @ 02:36 by Kiersten Maza PA-C) History of carpal tunnel release History of fusion of cervical spine History of right-sided carotid endarterectomy History of cardiac catheterization treated medically per patient report Social History Social History (Updated 01/08/25 @ 02:37 by Kiersten Maza PA-C) Social History: Surrogate medical decision maker: Susy Yun, daughter. Code status: Full code. Smoking packs per day: 0.5 Smoking cigarettes per day: 10.0 Years smoked: 60 Smoking pack-years: 30.00 Smoking status: Current every day smoker Tobacco type: cigarettes Second hand tobacco smoke exposure: No Additional smoking assessment comments: Smoked up to 2 packs of cigarettes a day, cut back to 10 a day as of 2023. Alcohol intake: current Drinks per week: 7 Alcohol use details: 1 to 2 shots of whiskey a day Substance use: never Spiritual care concerns: No Meds Home Medications and Allergies Home Medications ?Medication ?Instructions ?Recorded ?Confirmed ?Type albuterol sulfate 90 mcg/actuation 2 puff inhalation Q4H 01/08/25 01/08/25 History aerosol inhaler aspirin 81 mg tablet,delayed 81 mg PO DAILY 01/08/25 01/08/25 History release atorvastatin 40 mg tablet 40 mg PO DAILY 01/08/25 01/08/25 History carvedilol 3.125 mg tablet 3.125 mg PO BID 01/08/25 01/08/25 History cholecalciferol (vitamin D3) 125 5,000 unit PO DAILY 01/08/25 01/08/25 History mcg (5,000 unit) tablet (Vitamin D3) clopidogrel 75 mg tablet 75 mg PO DAILY 01/08/25 01/08/25 History diclofenac sodium 1 % topical gel 2 g topical QID PRN arthritis 01/08/25 01/08/25 History donepezil 10 mg tablet 10 mg PO QPM 01/08/25 01/08/25 History famotidine 40 mg tablet 40 mg PO DAILY 01/08/25 01/08/25 History levetiracetam 1,000 mg tablet 1,000 mg PO Q12H 01/08/25 01/08/25 History losartan 25 mg tablet 25 mg PO DAILY 01/08/25 01/08/25 History memantine 10 mg tablet 10 mg PO BID 01/08/25 01/08/25 History multivitamin with minerals-folic 1 tablet PO DAILY 01/08/25 01/08/25 History acid 400 mcg-lycopene 370 mcg tablet (One-A-Day Men's 50 Plus) nortriptyline 25 mg capsule 25 mg PO HS PRN sleep 01/08/25 01/08/25 History pregabalin 150 mg capsule 150 mg PO TID 01/08/25 01/08/25 History tamsulosin 0.4 mg capsule 0.4 mg PO DAILY 01/08/25 01/08/25 History thiamine HCl (vitamin B1) 250 mg 250 mg PO DAILY 01/08/25 01/08/25 History tablet (Vitamin B-1) Allergies Allergy/AdvReac Type Severity Reaction Status Date / Time No Known Allergies Allergy Verified 01/07/25 18:03 Vital Signs Vital Signs - 24 hr 01/07/25 17:58 01/07/25 19:12 01/07/25 19:15 Temperature 97.8 F Pulse Rate 90 85 86 Respiratory Rate 18 34 H Blood Pressure 154/76 H 167/81 H Pulse Oximetry 91 97 Oxygen Delivery Room Air 01/07/25 20:00 01/07/25 20:16 01/07/25 20:42 Temperature Pulse Rate 88 93 88 Respiratory Rate 23 H 24 H 23 H Blood Pressure 160/100 H Pulse Oximetry 96 Oxygen Delivery 01/07/25 21:32 01/07/25 22:00 01/07/25 22:45 Temperature Pulse Rate 93 86 87 Respiratory Rate 19 19 19 Blood Pressure 160/80 H 160/94 H 156/82 H Pulse Oximetry 93 93 95 Oxygen Delivery Exam Narrative: General: Nontoxic-appearing elderly gentleman the semi-Jones position in bed. Weight: 72.4 kg. BMI: 25.0. HEENT: Wearing corrective lenses. PERRL, EOMI. Sclera anicteric. Oral mucosa moist. Neck: Supple. Full [place]. Respiratory: Mildly tachypneic and occasional pursed lip breathing. He does not appear in respiratory distress however when spoken to and is able to speak in full sentences. Lung sounds are diminished with scattered wheezing in the left upper lobe posteriorly. Cardiovascular: Regular rate and rhythm with S1-S2. Soft murmur at the upper sternal border. Gastrointestinal: Abdomen is soft, nontender, and nondistended with positive bowel sounds. Large right inguinal hernia. Skin: Warm and dry. No rash or lesions on limited exam. Extremities: No cyanosis, clubbing, or edema. No palpable knots or cords. Radial and pedal pulses intact. Neurological: Alert. Cranial nerves 2-12 are grossly intact. Speech is clear. No facial asymmetry. No gross focal deficits to casual conversation. Psychiatric: Pleasant and cooperative with appropriate mood and affect. H&P: Results Labs Labs: Short CBC 01/07/25 Range/Units 19:37 WBC 6.2 (4.5-10.0) K/mm3 Hgb 16.6 (14.0-18.0) g/dL Hct 53.2 H (42.0-52.0) % Plt Count 236 (150-375) k/mm3 BMP 01/07/25 19:37 Sodium 140 Potassium 4.1 Chloride 103 Carbon Dioxide 27 BUN 11 Creatinine 0.74 Glucose 86 Calcium 9.6 Liver Function 01/07/25 Range/Units 19:37 Total Bilirubin 0.4 (0.2-1.3) mg/dL AST 28 (17-59) U/L ALT 19 (6-50) U/L Alkaline Phosphatase 85 (38-126) U/L Albumin 4.1 (3.5-5.1) g/dL Imaging Chest X-Ray 01/07/25 19:41 IMPRESSION: No focal infiltrate or effusion. Chest CTA 01/07/25 21:18 IMPRESSION: No pulmonary embolus. No thoracic aortic dissection. Interval enlargement of 2 separate nodules when compared with previous examination performed 10/19/2024 for which follow-up as per Fleischner guidelines is recommended (which dictates PET/CT, tissue sampling, or 3 month follow-up CT). Assessment and Plan Assessment and plan (1) Hypoxia: Code(s): R09.02 - Hypoxemia Status: Acute (2) Chronic obstructive pulmonary disease: Code(s): J44.9 - Chronic obstructive pulmonary disease, unspecified Status: Acute (3) Heart failure with preserved ejection fraction: Code(s): I50.30 - Unspecified diastolic (congestive) heart failure Status: Acute (4) Coronary artery disease: Code(s): I25.10 - Atherosclerotic heart disease of [place] coronary artery without angina pectoris Status: Acute (5) Rheumatoid arthritis: Code(s): M06.9 - Rheumatoid arthritis, unspecified Status: Acute (6) Seizure: Code(s): R56.9 - Unspecified convulsions Status: Acute (7) Benign prostatic hyperplasia: Code(s): N40.0 - Benign prostatic hyperplasia without lower urinary tract symptoms Status: Acute Plan The patient presented to the emergency department for evaluation after he was found to have an SpO2 dipping down into the upper 70s with ambulation at his doctor's office as detailed in HPI. Labs, imaging, EKG, and all reports were personally reviewed. Workup in the ED was pretty unrevealing with unremarkable labs and chest x-ray. Chest CTA was negative for pulmonary embolism and other findings. Lung sounds are diminished on exam with occasional wheezing in the left upper lobe however and he is been started on scheduled bronchodilators and a short course of prednisone. No indication for antibiotics. His volume status is euvolemic and shortness of breath is not likely cardiac related after recent visit with his mortgage branch manager. He does not follow with a manager quality and needs have formal outpatient PFTs. He will need a home oxygen evaluation study tomorrow given reports of hypoxia with ambulation. He had a recent echocardiogram and those results have been requested from his mortgage branch manager in [place]. He will need follow-up for interval enlargement of 2, small pulmonary nodules per Fleischner guidelines (PET/CT, tissue sampling, or three-month follow-up CT) which will need to be done as an outpatient. Vital signs have been stable. Chronic medical conditions without acute issue include coronary artery disease, rheumatoid arthritis, seizures, and benign prostatic hyperplasia. We discussed the importance of quitting smoking immediately however he is not very motivated. He denies the need for nicotine patch. His home medications will be reviewed and resumed as appropriate. Findings and treatment plan were discussed with the patient. Questions were solicited and answered to satisfaction. The patient's medical management will be taken over by the hospitalist team in a.m. Quality VTE Prophylaxis VTE prophylaxis: mechanical ordered If No VTE Prophylaxis Answer both mechanical and pharmacologic: Reason no pharmacologic proph: medical contraindication (patient on dual anti-platelet therapy, pharmacologic prophylaxis would put him at increased risk for bleeding) The patient has been admitted under observation status. Hospitalist [facility] Advance Care Plan I have confirmed that the patient's Advanced Care Plan is present, code status is documented, or surrogate decision maker is listed in patient medical record.: Yes Medication Reconciliation I have utilized all available resources to obtain, update and review the patients current medications (includes all prescriptions, OTC, herbals, cannabis, and nutritional supplements).: Yes
[2025-01-08] VITALS (12 sets, daily range): BP systolic 125–141; BP diastolic 69–74; PULSE 78–92; RESP 16–20; TEMP 35.9–36.7; O2SAT 95–96; BMI 25.0
--- NOTE | 2025-01-08 00:15 | ADMGEN ---
This patient, Radha Smith, was admitted to [facility] Room 314-02. Patient/family oriented to hospital policies and general routines including ID bracelet, bed and alarms, visiting hours, pain management, procedures, bathroom and other care routines, personal items, smoking policy, room service/diet, and visiting hours. Information on how to activate the Rapid Response Team has been discussed. Patient/Family are encouraged to report perceived risks to care and to ask questions if they do not understand what they are told or what they should do.
--- NOTE | 2025-01-08 01:39 | PC.NURSE ---
On 01/08/25, the Graduate Nurse, Michelle, provided care and completed [employer] documentation on this patient with this nurse at her side, available for questions/assistance. I have reviewed the Michelle's documentation and agree with the findings.
[2025-01-08] MEDS: ALBUTEROL SULFATE NEB 2.5 MG/3 ML INH INHALATION ×3 (01:48→15:12)
--- NOTE | 2025-01-08 07:07 | P.PNIM_ITS ---
Progress Note: A&P Assessment and Plan (1) Hypoxia: Code(s): R09.02 - Hypoxemia Status: Acute Assessment and Plan: SpO2 dropped to 79% with ambulation at his PCP who referred him to the ED. Chest XR showed no focal infiltrate or effusion Chest CTA showed no PE, no thoracic aortic dissection, and interval enlargement of 2 separate nodules when compared to prior exam from 10/19/2024. Lung sounds remain diminished on exam scheduled bronchodilators and a short course of prednisone. No indication for antibiotics. Viral panel negative Patient euvolemic with BNP 188, shortness of breath not likely cardiac related given recent aircraft structural repair mechanic visit recent echocardiogram and those results have been requested from his aircraft structural repair mechanic in [place] he was told to hold his furosemide and empagliflozin and his carvedilol dose was decreased by half, likely due to low BP He does not follow a drier belt conveyor, will need outpatient PFTs Will need home oxygen evaluation prior to discharge Will need follow-up for interval enlargement of 2, small pulmonary nodules per Fleischner guidelines (PET/CT, tissue sampling, or three-month follow-up CT) which will need to be done as an outpatient. Monitor Oxygen saturation, Oxygen via NC; wean oxygen as tolerated, keep SpO2 greater than 88% Monitor vital signs, I&Os, neuro status and patient is a fall risk Monitor serum electrolytes, cultures and CBC Patient is on RA with stable saturations. (2) Chronic obstructive pulmonary disease: Code(s): J44.9 - Chronic obstructive pulmonary disease, unspecified Status: Acute Assessment and Plan: SpO2 dropped to 79% with ambulation at his PCP who referred him to the ED. Chest XR showed no focal infiltrate or effusion Chest CTA showed no PE, no thoracic aortic dissection, and interval enlargement of 2 separate nodules when compared to prior exam from 10/19/2024. Lung sounds are diminished on exam scheduled bronchodilators and a short course of prednisone. No indication for antibiotics. Viral panel negative He does not follow a drier belt conveyor, will need outpatient PFTs Will need home oxygen evaluation prior to discharge Monitor Oxygen saturation, Oxygen via NC; wean oxygen as tolerated, keep SpO2 greater than 88% Monitor vital signs, I&Os, neuro status and patient is a fall risk Monitor serum electrolytes, cultures and CBC Patient continues to endorse shortness of breath that is further exacerbated with ambulation. He denies cough. Remains on prednisone and nebs. (3) Heart failure with preserved ejection fraction: Code(s): I50.30 - Unspecified diastolic (congestive) heart failure Status: Acute Assessment and Plan: Chronic. Patient euvolemic with BNP 188, shortness of breath not likely cardiac related given recent aircraft structural repair mechanic visit recent echocardiogram and those results have been requested from his aircraft structural repair mechanic in [place] he was told to hold his furosemide and empagliflozin and his carvedilol dose was decreased by half, likely due to low BP (4) Coronary artery disease: Code(s): I25.10 - Atherosclerotic heart disease of [place] coronary artery without angina pectoris Status: Acute Assessment and Plan: status post right carotid endarterectomy continue home medications (5) Hypertension: Code(s): I10 - Essential (primary) hypertension Status: Acute Assessment and Plan: Chronic, continue home medications - coreg 3.125 mg BID - losartan 25 mg daily - blood pressures remain stable, continue to monitor (6) Seizure: Code(s): R56.9 - Unspecified convulsions Status: Acute Assessment and Plan: Chronic continue keppra 1000 mg BID (7) Benign prostatic hyperplasia: Code(s): N40.0 - Benign prostatic hyperplasia without lower urinary tract symptoms Status: Acute Assessment and Plan: Chronic, continue flomax Time Spent With Patient Time with patient: 25 - 35 minutes Subjective Date/time seen: 01/08/25 07:07 Interval history: 74 year old male with past medical history of COPD, CAD s/p right carotid endar terectomy, heart failure with preserved ejection fraction, congestive heart failure with preserved ejection fraction, HTN, seizures, and rheumatoid arthritis who presented to the hospital with shortness of breath. Patient is pleasant sitting up comfortably in bed. He continues to endorse shortness of breath but is further exacerbated with ambulation. He notes slight improvement since admission. He denies any cough. He also endorses occasional dizziness with position change. Orthostatic vital signs ordered. Patient has no other complaints denying chest pain, palpitations, nausea/vomiting, abdominal pain. Review of Systems Review of Systems: All systems reviewed & are unremarkable except as noted in HPI and below Exam Narrative: AF HR 80 RR 18 SPO2 95 RA BP 135/74 General: male in no acute respiratory distress who is nontoxic appearing, sitting up in bed HEENT: Normocephalic. Atraumatic. Extraocular movement intact. Sclera clear and anicteric. No facial asymmetry. Chest: Lungs are diminished to auscultation bilaterally. No wheezes or crackles. Pursed lip breathing. Speaking full sentences. CV: Heart was regular rate and rhythm. S1/S2. No murmurs, gallops, or rubs. Abd: Abdomen was soft. Nontender. Nondistended. Positive bowel sounds. Ext: No clubbing, cyanosis, or edema. DP pulses bilaterally. Neuro: Patient is alert and oriented x4. Speech is clear. Objective Data Vital Signs Vital Signs: Vital Signs - 24 hr 01/07/25 17:58 01/07/25 19:12 01/07/25 19:15 Temperature 97.8 F Pulse Rate 90 85 86 Respiratory Rate 18 34 H Blood Pressure 154/76 H 167/81 H Pulse Oximetry 91 97 Oxygen Delivery Room Air 01/07/25 20:00 01/07/25 20:16 01/07/25 20:42 Temperature Pulse Rate 88 93 88 Respiratory Rate 23 H 24 H 23 H Blood Pressure 160/100 H Pulse Oximetry 96 Oxygen Delivery 01/07/25 21:32 01/07/25 22:00 01/07/25 22:45 Temperature Pulse Rate 93 86 87 Respiratory Rate 19 19 19 Blood Pressure 160/80 H 160/94 H 156/82 H Pulse Oximetry 93 93 95 Oxygen Delivery 01/07/25 23:35 01/07/25 23:40 01/08/25 01:11 Temperature Pulse Rate 86 86 Respiratory Rate 18 18 Blood Pressure 160/86 H 160/86 H Pulse Oximetry 94 94 Oxygen Delivery Room Air 01/08/25 01:51 01/08/25 01:53 01/08/25 02:00 Temperature Pulse Rate 85 87 Respiratory Rate 20 20 Blood Pressure Pulse Oximetry 96 Oxygen Delivery Room Air 01/08/25 06:00 Temperature 97.5 F L Pulse Rate 92 Respiratory Rate 16 Blood Pressure 135/74 Pulse Oximetry 96 Oxygen Delivery Intake/Output Intake/Output: Intake & Output 01/05/25 01/06/25 01/07/25 01/08/25 23:59 23:59 23:59 23:59 Intake Total 220 Output Total 0 Balance 220 Meds/Results Medications: Active Medications Generic Name Dose Route Start Last Admin Trade Name Freq PRN Reason Stop Dose Admin Acetaminophen 650 mg 01/08/25 02:43 Acetaminophen 325 Mg Tablet PO Q6H PRN Mild Pain (1-3) or Fever Albuterol 2.5 mg 01/08/25 02:00 01/08/25 01:48 Albuterol Sulfate Neb 2.5 Mg/3 Ml Inh INHALATION 2.5 mg Q6HRT [facility] Administration Aspirin 81 mg 01/08/25 09:00 Aspirin 81 Mg Enteric Tablet PO DAILY [facility] Atorvastatin Calcium 40 mg 01/08/25 09:00 Atorvastatin 40 Mg Tablet PO DAILY [facility] Carvedilol 3.125 mg 01/08/25 09:00 Carvedilol 3.125 Mg Tablet PO Q12HR [facility] Clopidogrel Bisulfate 75 mg 01/08/25 09:00 Clopidogrel Bisulfate 75 Mg Tablet PO DAILY [facility] Diclofenac Sodium 1 applic 01/08/25 06:08 Diclofenac Sodium 1% 100 Gm Gel (*Bkc) TOPICAL QID PRN arthritis Donepezil HCl 10 mg 01/08/25 18:00 Donepezil Hcl 10 Mg Tablet PO QPM [facility] Famotidine 40 mg 01/08/25 09:00 Famotidine 20 Mg Tablet PO DAILY [facility] Levetiracetam 1,000 mg 01/08/25 09:00 Levetiracetam 500 Mg Tablet PO Q12HR [facility] Losartan Potassium 25 mg 01/08/25 09:00 Losartan Potassium 25 Mg Tablet PO DAILY [facility] Memantine 10 mg 01/08/25 09:00 Memantine 10 Mg Tablet PO BID [facility] Multivitamins/Calcium 1 tablet 01/08/25 09:00 Therapeutic Multivitamins/Minerals Tab (*Bkc) PO DAILY [facility] Nortriptyline HCl 25 mg 01/08/25 06:08 Nortriptyline Hcl 25 Mg Capsule PO HS PRN sleep Prednisone 40 mg 01/08/25 08:00 Prednisone 20 Mg Tablet PO 01/12/25 07:59 DAILY@0800 [facility] Pregabalin 150 mg 01/08/25 09:00 Pregabalin (*Crx) 75 Mg Capsule PO TID [facility] Tamsulosin HCl 0.4 mg 01/08/25 09:00 Tamsulosin Hcl 0.4 Mg Capsule PO DAILY [facility] Thiamine HCl 200 mg 01/08/25 09:00 Thiamine Hcl 100 Mg Tablet PO QAM [facility] Vitamin D 5,000 mcg 01/08/25 09:00 Cholecalciferol (Vitamin D3) 125 Mcg (5,000 Units) Tablet PO DAILY [facility] Radiology Results: ITS Impressions Chest X-Ray 01/07/25 19:41 IMPRESSION: No focal infiltrate or effusion. Chest CTA 01/07/25 21:18 IMPRESSION: No pulmonary embolus. No thoracic aortic dissection. Interval enlargement of 2 separate nodules when compared with previous examination performed 10/19/2024 for which follow-up as per Fleischner guidelines is recommended (which dictates PET/CT, tissue sampling, or 3 month follow-up CT). Labs Labs: Laboratory Results - last 24 hr 01/07/25 19:37 WBC 6.2 RBC 5.84 Hgb 16.6 Hct 53.2 H MCV 91.1 MCH 28.4 MCHC 31.2 L RDW 13.2 Plt Count 236 MPV 10.8 H Immature Gran % (Auto) 0.6 H Neut % (Auto) 57.4 Lymph % (Auto) 27.5 [place] % (Auto) 10.2 H Eos % (Auto) 3.2 Baso % (Auto) 1.1 Lymph # (Auto) 1.70 [place] # (Auto) 0.6 Eos # (Auto) 0.2 Baso # (Auto) 0.1 Abs Immat Gran (auto) 0.04 H Absolute Neuts (auto) 3.6 Absolute Nucleated RBC 0.000 Nucleated RBC % 0.0 PT 13.6 INR 1.0 APTT 30.7 Sodium 140 Potassium 4.1 Chloride 103 Carbon Dioxide 27 Anion Gap 10 BUN 11 Creatinine 0.74 Estim Creat Clear Calc Not Reportable Estimated GFR > 60 Glucose 86 Calcium 9.6 Total Bilirubin 0.4 AST 28 ALT 19 Alkaline Phosphatase 85 NT-Pro-B Natriuret Pep 188 H Total Protein 7.5 Albumin 4.1 Influenza A (RT-PCR) Negative Influenza B (RT-PCR) Negative RSV (RT-PCR) Negative SARS-CoV-2 RNA (RT-PCR) Negative Quality VTE Prophylaxis VTE prophylaxis: mechanical ordered
[2025-01-08] MEDS: levETIRAcetam 500 MG TABLET 1000 MG PO ×2 (10:02→20:45)
[2025-01-08] MEDS: PREGABALIN (*CRX) 75 MG CAPSULE 150 MG PO ×3 (10:02→18:28)
[2025-01-08] MEDS: ACETAMINOPHEN 325 MG TABLET 650 MG PO (10:02)
[2025-01-08] MEDS: THIAMINE HCL 100 MG TABLET 200 MG PO (10:03)
[2025-01-08] MEDS: LOSARTAN POTASSIUM 25 MG TABLET PO (10:03)
[2025-01-08] MEDS: carvediloL 3.125 MG TABLET PO ×2 (10:03→20:45)
[2025-01-08] MEDS: ATORVASTATIN 40 MG TABLET PO (10:04)
[2025-01-08] MEDS: FAMOTIDINE 20 MG TABLET 40 MG PO (10:04)
[2025-01-08] MEDS: predniSONE 20 MG TABLET 40 MG PO (10:04)
[2025-01-08] MEDS: CLOPIDOGREL BISULFATE 75 MG TABLET PO (10:04)
[2025-01-08] MEDS: TAMSULOSIN HCL 0.4 MG CAPSULE PO (10:04)
[2025-01-08] MEDS: ASPIRIN 81 MG ENTERIC TABLET PO (10:04)
[2025-01-08] MEDS: MEMANTINE 10 MG TABLET PO ×2 (10:05→18:28)
[2025-01-08] MEDS: THERAPEUTIC MULTIVITAMINS/MINERALS TAB (*BKC) 1 TABLET PO (10:05)
[2025-01-08] MEDS: CHOLECALCIFEROL (VITAMIN D3) 125 MCG (5,000 UNITS) TABLET 5000 MCG PO (15:25)
[2025-01-08] MEDS: DONEPEZIL HCL 10 MG TABLET PO (18:28)
[2025-01-09] VITALS (12 sets, daily range): BP systolic 134–154; BP diastolic 65–88; PULSE 71–117; RESP 18–20; TEMP 36.2–36.3; O2SAT 89–100
[2025-01-09] MEDS: ALBUTEROL SULFATE NEB 2.5 MG/3 ML INH INHALATION ×2 (07:47→13:29)
[2025-01-09] MEDS: ACETAMINOPHEN 325 MG TABLET 650 MG PO (08:26)
[2025-01-09] MEDS: PREGABALIN (*CRX) 75 MG CAPSULE 150 MG PO ×2 (08:26→14:13)
[2025-01-09] MEDS: CLOPIDOGREL BISULFATE 75 MG TABLET PO (08:51)
[2025-01-09] MEDS: THIAMINE HCL 100 MG TABLET 200 MG PO (08:51)
[2025-01-09] MEDS: predniSONE 20 MG TABLET 40 MG PO (08:51)
[2025-01-09] MEDS: THERAPEUTIC MULTIVITAMINS/MINERALS TAB (*BKC) 1 TABLET PO (08:51)
[2025-01-09] MEDS: levETIRAcetam 500 MG TABLET 1000 MG PO (08:51)
[2025-01-09] MEDS: ATORVASTATIN 40 MG TABLET PO (08:51)
[2025-01-09] MEDS: TAMSULOSIN HCL 0.4 MG CAPSULE PO (08:52)
[2025-01-09] MEDS: carvediloL 3.125 MG TABLET PO (08:52)
[2025-01-09] MEDS: MEMANTINE 10 MG TABLET PO (08:52)
[2025-01-09] MEDS: LOSARTAN POTASSIUM 25 MG TABLET PO (08:52)
[2025-01-09] MEDS: ASPIRIN 81 MG ENTERIC TABLET PO (08:52)
[2025-01-09] MEDS: CHOLECALCIFEROL (VITAMIN D3) 125 MCG (5,000 UNITS) TABLET 5000 MCG PO (08:55)
[2025-01-09] MEDS: FAMOTIDINE 20 MG TABLET 40 MG PO (08:55)
--- NOTE | 2025-01-09 09:13 | P.PNIM_ITS ---
Progress Note: A&P Assessment and Plan (1) Hypoxia: Code(s): R09.02 - Hypoxemia Status: Acute Assessment and Plan: SpO2 dropped to 79% with ambulation at his PCP who referred him to the ED. Chest XR showed no focal infiltrate or effusion Chest CTA showed no PE, no thoracic aortic dissection, and interval enlargement of 2 separate nodules when compared to prior exam from 10/19/2024. Lung sounds remain diminished on exam scheduled bronchodilators and a short course of prednisone. No indication for antibiotics. Viral panel negative Patient euvolemic with BNP 188, shortness of breath not likely cardiac related given recent public welfare director visit recent echocardiogram and those results have been requested from his public welfare director in [place] he was told to hold his furosemide and empagliflozin and his carvedilol dose was decreased by half, likely due to low BP He does not follow a case finishing machine adjuster, will need outpatient PFTs Will need home oxygen evaluation prior to discharge Will need follow-up for interval enlargement of 2, small pulmonary nodules per Fleischner guidelines (PET/CT, tissue sampling, or three-month follow-up CT) which will need to be done as an outpatient. Monitor Oxygen saturation, Oxygen via NC; wean oxygen as tolerated, keep SpO2 greater than 88% Monitor vital signs, I&Os, neuro status and patient is a fall risk Monitor serum electrolytes, cultures and CBC Patient is on RA with stable saturations. (2) Chronic obstructive pulmonary disease: Code(s): J44.9 - Chronic obstructive pulmonary disease, unspecified Status: Acute Assessment and Plan: SpO2 dropped to 79% with ambulation at his PCP who referred him to the ED. Chest XR showed no focal infiltrate or effusion Chest CTA showed no PE, no thoracic aortic dissection, and interval enlargement of 2 separate nodules when compared to prior exam from 10/19/2024. Lung sounds are diminished on exam scheduled bronchodilators and a short course of prednisone. No indication for antibiotics. Viral panel negative He does not follow a case finishing machine adjuster, will need outpatient PFTs Will need home oxygen evaluation prior to discharge Monitor Oxygen saturation, Oxygen via NC; wean oxygen as tolerated, keep SpO2 greater than 88% Monitor vital signs, I&Os, neuro status and patient is a fall risk Monitor serum electrolytes, cultures and CBC Patient continues to endorse shortness of breath that is further exacerbated with ambulation. He denies cough. Remains on prednisone and nebs. (3) Heart failure with preserved ejection fraction: Code(s): I50.30 - Unspecified diastolic (congestive) heart failure Status: Acute Assessment and Plan: Chronic. Patient euvolemic with BNP 188, shortness of breath not likely cardiac related given recent public welfare director visit recent echocardiogram and those results have been requested from his public welfare director in [place] he was told to hold his furosemide and empagliflozin and his carvedilol dose was decreased by half, likely due to low BP (4) Coronary artery disease: Code(s): I25.10 - Atherosclerotic heart disease of [place] coronary artery without angina pectoris Status: Acute Assessment and Plan: status post right carotid endarterectomy continue home medications (5) Hypertension: Code(s): I10 - Essential (primary) hypertension Status: Acute Assessment and Plan: Chronic, continue home medications - coreg 3.125 mg BID - losartan 25 mg daily - blood pressures remain stable, continue to monitor (6) Seizure: Code(s): R56.9 - Unspecified convulsions Status: Acute Assessment and Plan: Chronic continue keppra 1000 mg BID (7) Benign prostatic hyperplasia: Code(s): N40.0 - Benign prostatic hyperplasia without lower urinary tract symptoms Status: Acute Assessment and Plan: Chronic, continue flomax Subjective Date/time seen: 01/09/25 09:13 Interval history: 74 year old male with past medical history of COPD, CAD s/p right carotid endarterectomy, heart failure with preserved ejection fraction, congestive heart failure with preserved ejection fraction, HTN, seizures, and rheumatoid arthritis who presented to the hospital with shortness of breath. Review of Systems Review of Systems: All systems reviewed & are unremarkable except as noted in HPI and below Exam Narrative: AF HR General: male in no acute respiratory distress who is nontoxic appearing, sitting up in bed HEENT: Normocephalic. Atraumatic. Extraocular movement intact. Sclera clear and anicteric. No facial asymmetry. Chest: Lungs are diminished to auscultation bilaterally. No wheezes or crackles. Pursed lip breathing. Speaking full sentences. CV: Heart was regular rate and rhythm. S1/S2. No murmurs, gallops, or rubs. Abd: Abdomen was soft. Nontender. Nondistended. Positive bowel sounds. Ext: No clubbing, cyanosis, or edema. DP pulses bilaterally. Neuro: Patient is alert and oriented x4. Speech is clear. Objective Data Vital Signs Vital Signs: Vital Signs - 24 hr 01/08/25 10:03 01/08/25 14:00 01/08/25 15:12 Temperature 98.1 F Pulse Rate 80 80 78 Respiratory Rate 20 18 Blood Pressure 125/69 Pulse Oximetry 96 Oxygen Delivery 01/08/25 15:22 01/08/25 20:25 01/08/25 20:45 Temperature 96.6 F L Pulse Rate 82 81 81 Respiratory Rate 18 20 Blood Pressure 141/74 H Pulse Oximetry 96 Oxygen Delivery 01/09/25 05:00 01/09/25 07:47 01/09/25 07:47 Temperature 97.4 F L Pulse Rate 82 72 Respiratory Rate 20 18 Blood Pressure 138/65 Pulse Oximetry 95 91 Oxygen Delivery Room Air 01/09/25 08:00 01/09/25 08:52 Temperature Pulse Rate 77 77 Respiratory Rate 18 Blood Pressure Pulse Oximetry Oxygen Delivery Intake/Output Intake/Output: Intake & Output 01/06/25 01/07/25 01/08/25 01/09/25 23:59 23:59 23:59 23:59 Intake Total 2540 822 Output Total 0 Balance 2540 822 Meds/Results Medications: Active Medications Generic Name Dose Route Start Last Admin Trade Name Freq PRN Reason Stop Dose Admin Acetaminophen 650 mg 01/08/25 02:43 01/09/25 08:26 Acetaminophen 325 Mg Tablet PO 650 mg Q6H PRN Administration Mild Pain (1-3) or Fever Albuterol 2.5 mg 01/08/25 02:00 01/09/25 07:47 Albuterol Sulfate Neb 2.5 Mg/3 Ml Inh INHALATION 2.5 mg Q6HRT [facility] Administration Aspirin 81 mg 01/08/25 09:00 01/09/25 08:52 Aspirin 81 Mg Enteric Tablet PO 81 mg DAILY [facility] Administration Atorvastatin Calcium 40 mg 01/08/25 09:00 01/09/25 08:51 Atorvastatin 40 Mg Tablet PO 40 mg DAILY [facility] Administration Carvedilol 3.125 mg 01/08/25 09:00 01/09/25 08:52 Carvedilol 3.125 Mg Tablet PO 3.125 mg Q12HR [facility] Administration Clopidogrel Bisulfate 75 mg 01/08/25 09:00 01/09/25 08:51 Clopidogrel Bisulfate 75 Mg Tablet PO 75 mg DAILY [facility] Administration Diclofenac Sodium 1 applic 01/08/25 06:08 Diclofenac Sodium 1% 100 Gm Gel (*Bkc) TOPICAL QID PRN arthritis Donepezil HCl 10 mg 01/08/25 18:00 01/08/25 18:28 Donepezil Hcl 10 Mg Tablet PO 10 mg QPM [facility] Administration Famotidine 40 mg 01/08/25 09:00 01/09/25 08:55 Famotidine 20 Mg Tablet PO 40 mg DAILY [facility] Administration Levetiracetam 1,000 mg 01/08/25 09:00 01/09/25 08:51 Levetiracetam 500 Mg Tablet PO 1,000 mg Q12HR [facility] Administration Losartan Potassium 25 mg 01/08/25 09:00 01/09/25 08:52 Losartan Potassium 25 Mg Tablet PO 25 mg DAILY [facility] Administration Memantine 10 mg 01/08/25 09:00 01/09/25 08:52 Memantine 10 Mg Tablet PO 10 mg BID [facility] Administration Multivitamins/Calcium 1 tablet 01/08/25 09:00 01/09/25 08:51 Therapeutic Multivitamins/Minerals Tab (*Bkc) PO 1 tablet DAILY [facility] Administration Nortriptyline HCl 25 mg 01/08/25 06:08 Nortriptyline Hcl 25 Mg Capsule PO HS PRN sleep Prednisone 40 mg 01/08/25 08:00 01/09/25 08:51 Prednisone 20 Mg Tablet PO 01/12/25 07:59 40 mg DAILY@0800 [facility] Administration Pregabalin 150 mg 01/08/25 09:00 01/09/25 08:26 Pregabalin (*Crx) 75 Mg Capsule PO 150 mg TID [facility] Administration Tamsulosin HCl 0.4 mg 01/08/25 09:00 01/09/25 08:52 Tamsulosin Hcl 0.4 Mg Capsule PO 0.4 mg DAILY [facility] Administration Thiamine HCl 200 mg 01/08/25 09:00 01/09/25 08:51 Thiamine Hcl 100 Mg Tablet PO 200 mg QAM [facility] Administration Vitamin D 5,000 mcg 01/08/25 09:00 01/09/25 08:55 Cholecalciferol (Vitamin D3) 125 Mcg (5,000 Units) Tablet PO 125 mcg DAILY [facility] Administration Radiology Results: ITS Impressions Chest X-Ray 01/07/25 19:41 IMPRESSION: No focal infiltrate or effusion. Chest CTA 01/07/25 21:18 IMPRESSION: No pulmonary embolus. No thoracic aortic dissection. Interval enlargement of 2 separate nodules when compared with previous examination performed 10/19/2024 for which follow-up as per Fleischner guidelines is recommended (which dictates PET/CT, tissue sampling, or 3 month follow-up CT). Quality VTE Prophylaxis VTE prophylaxis: mechanical ordered
[2025-01-09 11:11] LABS: Hematocrit 53.7 % (42.0-52.0); Hemoglobin 16.4 g/dL (14.0-18.0); Mean Corpuscular HGB Conc 30.5 g/dl (32-36); Mean Corpuscular Hemoglobin 28.4 pg (26-34); Mean Corpuscular Volume 93.1 fl (80-100); Mean Platelet Volume 10.4 fl (7.4-10.4); Platelet Count Result 265 k/mm3 (150-375); Red Blood Count 5.77 M/mm3 (4.6-6.20); Red Cell Distribution Width 13.2 % (11.5-14.5); White Blood Count 11.5 K/mm3 (4.5-10.0)
[2025-01-09 11:26] LABS: Alanine Aminotransferase 23 U/L (6-50); Albumin Level 4.3 g/dL (3.5-5.1); Alkaline Phosphatase 67 U/L (38-126); Anion Gap 12 mmol/L (4-12); Aspartate Amino Transferase 28 U/L (17-59); Bilirubin,Total 0.3 mg/dL (0.2-1.3); Blood Urea Nitrogen 15 mg/dL (9-20); Calcium 9.7 mg/dL (8.4-10.2); Carbon Dioxide 28 mmol/L (22-30); Chloride 102 mmol/L (98-107); Estimated CRCL calculation 64 ml/min; Estimated Glomerular Filt Rate > 60; Glucose 82 mg/dL (65-110); Potassium 3.6 mmol/L (3.4-5.0); Sodium 142 mmol/L (137-145); Total Protein 7.9 g/dL (6.3-8.2)
--- NOTE | 2025-01-09 12:06 | HOMEO2EVAL ---
Evaluation was performed at [facility] Home Oxygen Evaluation RC: Home Oxygen (O2) Evaluation Start: 01/08/25 02:43 Freq: ONCE Status: Active Protocol: RPE Activity Type Activity Date Activity User E-sign Co-sign Detail Recorded Client Recorded Date Recorded By Document 01/09/25 11:55 CLC [email or web address] 01/09/25 12:06 CLC Document 01/09/25 11:57 CLC [email or web address] 01/09/25 12:06 CLC Document 01/09/25 12:00 CLC [email or web address] 01/09/25 12:06 CLC 01/09/25 01/09/25 01/09/25 11:55 11:57 12:00 Home O2 Evaluation [Oxygen] -Test Phase Resting Exercise Resting -Oxygen Delivery Room Air Room Air Room Air [Pulse Oximetry] -Pulse Oximetry (90-100 %) 95 89 L 91 [Pulse Rate] -Pulse Rate (60-100 beats/min) 84 87 84 [Evaluation] -Activity Tolerance Good [Exercise] -Ambulation Distance (feet) 50 -Ambulation Distance (meters) 15.23 [Charges] -Evaluation Charges O2 Evaluation by [facility]
--- NOTE | 2025-01-09 12:06 | PCRCNOTE ---
Home o2 evaluation complete. Patient requires no oxygen. RN notified.
--- NOTE | 2025-01-09 13:57 | P.DS_ITS ---
DS: Admitting Diagnosis Discharge Date 01/09/2025 Admitting Diagnosis Hypoxia COPD HFpEF CAD HTN Seizure BPH DS: Discharge Diagnosis Discharge Diagnosis (1) Hypoxia: Code(s): R09.02 - Hypoxemia Status: Acute (2) Chronic obstructive pulmonary disease: Code(s): J44.9 - Chronic obstructive pulmonary disease, unspecified Status: Acute (3) Heart failure with preserved ejection fraction: Code(s): I50.30 - Unspecified diastolic (congestive) heart failure Status: Acute (4) Coronary artery disease: Code(s): I25.10 - Atherosclerotic heart disease of [place] coronary artery without angina pectoris Status: Acute (5) Hypertension: Code(s): I10 - Essential (primary) hypertension Status: Acute (6) Seizure: Code(s): R56.9 - Unspecified convulsions Status: Acute (7) Benign prostatic hyperplasia: Code(s): N40.0 - Benign prostatic hyperplasia without lower urinary tract symptoms Status: Acute DS: Summary Hospital Course Reason for hospitalization: Hypoxia COPD HFpEF CAD HTN Seizure BPH Hospital Course: 74 year old male with past medical history of COPD, CAD s/p right carotid endarterectomy, heart failure with preserved ejection fraction, congestive heart failure with preserved ejection fraction, HTN, seizures, and rheumatoid arthritis who presented to the hospital with shortness of breath. SpO2 dropped to 79% with ambulation at his PCP who referred him to the ED. SpO2 was stable on admission and he remained on room air throughout hospitalization. Lung sounds are diminished on assessment and was started on scheduled bronchodilators and a short course of prednisone. No indication for antibiotics. Viral panel negative. Chest XR showed no focal infiltrate or effusion. Chest CTA showed no PE, no thoracic aortic dissection, and interval enlargement of 2 separate nodules when compared to prior exam from 10/19/2024. Patient euvolemic with BNP 188, shortness of breath not likely cardiac related given recent community health outreach worker visit. Patient was evaluated by respiratory therapy and no oxygen supplementation required at rest or with ambulation. Likely that patients COPD is worsening given his malena oing smoking. Strongly encouraged patient to stop smoking. Patent started on LABA Spiriva at discharge for COPD according to GOLD guidelines. Discussed with patient that he will need to have a repeat image of his chest in 3 months to reassess nodules. He stated understanding. He was endorsing occasional dizziness with position change during admission. Orthostatics unremarkable. Patient has no complaints at time of discharge denying chest pain, shortness a breath, palpitations, nausea/vomiting, abdominal pain, and dizziness/lightheadedness. Patient discharged home with family in a stable condition. He is to follow-up with his primary care provider in 1 week. Status at Discharge Functional status at discharge: independent ambulation Time Spent with Patient Time attestation: Total time spent providing and/or coordinating discharge services: Time spent: Greater than 30 minutes Exam Narrative: AF HR 71 RR 18 SpO2 91 BP 151/81 General: male in no acute respiratory distress who is nontoxic appearing, sitting up in bed HEENT: Normocephalic. Atraumatic. Extraocular movement intact. Sclera clear and anicteric. No facial asymmetry. Chest: Lungs are diminished but clear to auscultation bilaterally. No wheezes or crackles. Speaking full sentences. CV: Heart was regular rate and rhythm. S1/S2. No murmurs, gallops, or rubs. Abd: Abdomen was soft. Nontender. Nondistended. Positive bowel sounds. Ext: No clubbing, cyanosis, or edema. DP pulses bilaterally. Neuro: Patient is alert and oriented x4. Speech is clear. DS: Data Data Completed and Pending Completed studies during hospitalization: Chest CTA Chest XR Labs on day of discharge: Labs from last 24 hours 01/09/25 11:01 WBC 11.5 H RBC 5.77 Hgb 16.4 Hct 53.7 H MCV 93.1 MCH 28.4 MCHC 30.5 L RDW 13.2 Plt Count 265 MPV 10.4 Sodium 142 Potassium 3.6 Chloride 102 Carbon Dioxide 28 Anion Gap 12 BUN 15 Creatinine 0.83 Estim Creat Clear Calc 64 Estimated GFR > 60 Glucose 82 Calcium 9.7 Total Bilirubin 0.3 AST 28 ALT 23 Alkaline Phosphatase 67 Total Protein 7.9 Albumin 4.3 Discharge Plan Discharge Attending physician on discharge: Janel Cabral Consulting providers: Jennifer Young Discharging Clinician: Jennifer Young Anticipated Discharge Date/Time: 01/09/25 13:43 Patient Disposition: Home Activity: as tolerated Diet: as tolerated and heart healthy Discharge Instructions: Discharge disposition: Patient admitted to the hospital for a COPD exacerbation All imaging and lab work nonconcerning for acute infection Continue albuterol inhaler as needed for break through shortness of breath Started on Spiriva which is a long acting daily inhaler. Attached is information on this medication. Home oxygen evaluation performed and no oxygen supplementation required Follow up with your PCP or a pulmonologists to obtain PFTs and further evaluate lung function Will need follow-up for interval enlargement of 2, small pulmonary nodules that were seen on imaging. Obtain a PET/CT, tissue sampling, or three-month follow-up CT which will need to be done as an outpatient. Follow up with primary care provider Maintain a cardiac diet, 2 g sodium, do not over hydrate Remain active Monitor urine output Daily weights, if you gain more than 3 lb within 1 day or 5 lb in 1 week notify your primary care provider Strict bleeding precautions since you are on Plavix including shaving with an electric razor, holding pressure for greater than 20 minutes for injury, protection of had with any falls, etc. Monitor blood pressures Take caution while standing, rising, or moving Change positions slowly taking a break between each position change If you standing feel dizzy sit back down and take a break Encouraged to continue with yearly vaccinations Return to the emergency department if he developed sudden shortness of breath, chest pain, nausea, vomiting, upset stomach or intractable diarrhea Return to the emergency department if you develop fever greater than 101.5 Follow-up with the primary care physician within 1-2 weeks Thank you for [facility] for your healthcare needs Patient Instructions: Tiotropium (By breathing), COPD (Chronic Obstructive Pulmonary Disease) (DC) Patient Language: Maori Stand Alone Forms: General Discharge Information Follow-up/Referrals: Jimi Valadez [Other] - 1 Week Discharge Medications: New prednisone 20 mg Tablet 40 mg PO DAILY@0800 Qty: 3 0RF tiotropium bromide [Spiriva with HandiHaler] 18 mcg capsule, w/inhalation device 1 cap inhalation DAILY Qty: 14 0RF Rx Instructions: puncture 1 cap using device; one dose = 2 inhalations Continued albuterol sulfate 90 mcg/actuation HFA aerosol inhaler 2 puff INHALATION Q4H aspirin 81 mg tablet,delayed release (DR/EC) 81 mg PO DAILY atorvastatin 40 mg tablet 40 mg PO DAILY carvedilol 3.125 mg tablet 3.125 mg PO BID clopidogrel 75 mg tablet 75 mg PO DAILY donepezil 10 mg tablet 10 mg PO QPM famotidine 40 mg tablet 40 mg PO DAILY levetiracetam 1,000 mg tablet 1,000 mg PO Q12H losartan 25 mg tablet 25 mg PO DAILY memantine 10 mg tablet 10 mg PO BID nortriptyline 25 mg capsule 25 mg PO HS PRN (Reason: sleep) pregabalin 150 mg capsule 150 mg PO TID tamsulosin 0.4 mg capsule 0.4 mg PO DAILY cholecalciferol (vitamin D3) [Vitamin D3] 125 mcg (5,000 unit) tablet 5,000 unit PO DAILY thiamine HCl (vitamin B1) [Vitamin B-1] 250 mg tablet 250 mg PO DAILY One-A-Day Men's 50 Plus 400-370 mcg tablet 1 tablet PO DAILY diclofenac sodium 1 % gel 2 g TOPICAL QID PRN (Reason: arthritis) Date of admission: 01/08/25 08:03 Primary Care Provider: Jimi Valadez Admitting Provider: Alisa Singh Attending physician on admission: Alisa Singh Condition: Stable Hospitalist MIPS Heart Failure (Exclusion) Patient has history of Heart Transplant or Left Ventricular Assistive Device?: No IF YES, STOP HERE Heart Failure (Qualifier) Patient has current or prior documentation of LVEF less than or equal to 40%, or mod/servere depressed LVSF?: No IF NO, STOP HERE
== END 2025-01-09 17:40 | disposition home or self-care (01) | DRG 206 ==
LOC: ANHED 23:49 → ANH3MEDSUR 23:56
PROVIDERS: Admitting Provider Internal Medicine; Emergency Provider Emergency Medicine; Visit Provider Student in an Organized Health Care Education/Training Program
DX: R09.02 Hypoxemia (principal); I50.32 Chronic diastolic (congestive) heart failure; J44.1 Chronic obstructive pulmonary disease with (acute) exacerbation; I11.0 Hypertensive heart disease with heart failure; R56.9 Unspecified convulsions; R91.8 Other nonspecific abnormal finding of lung field; I25.10 Atherosclerotic heart disease of native coronary artery without angina pectoris; N40.0 Benign prostatic hyperplasia without lower urinary tract symptoms; M06.9 Rheumatoid arthritis, unspecified; F03.90 Unspecified dementia, unspecified severity, without behavioral disturbance, psychotic disturbance, mood disturbance, and anxiety; F17.210 Nicotine dependence, cigarettes, uncomplicated; Z86.73 Personal history of transient ischemic attack (TIA), and cerebral infarction without residual deficits; Z98.1 Arthrodesis status
CPT/HCPCS: 36415; 71045; 71275; 80053; 83880; 85025; 85027; 85610; 85730; 87637; 93005; 94618; 94640; 96374; 99285; A9270; G0378; J2919; J7512; Q9967